=== PATIENT | female | born 1995 | race Caucasian/White ===

== ENCOUNTER 2024-05-03 12:04 | Outpatient (RCR) | payer OTHER, SELFPAY | END 2024-05-29 13:16 | disposition home or self-care (01) | LOC: PT 12:04 | PROVIDERS: PCP Nurse Practitioner Family; Visit Provider Nurse Practitioner Family | DX: M43.16 Spondylolisthesis, lumbar region (principal); M43.10 Spondylolisthesis, site unspecified | CPT/HCPCS: 97014; 97110; 97140; 97161 ==

== ENCOUNTER 2024-06-05 19:48 | Observation (INO) | payer OTHER, SELFPAY ==
[2024-06-05] VITALS (31 sets, daily range): BP systolic 118–134; BP diastolic 75–91; PULSE 76–113; TEMP 36.4; O2SAT 94–100; BMI 35.4
--- NOTE | 2024-06-05 19:50 | CT_ITS ---
The [address] [address] Patient Name: ANGELA SMITH MRN: [id number] date: 1995 Sex: F Assigned Patient Location: ED.MAIN Current Patient Location: ER Accession/Order Number: [id number] Exam Date: 06/05/2024 20:25 Report Date: 06/05/2024 20:55 At the request of: SHY LOYA Procedure: CT head/brain wo con EXAM: CT head/brain wo con HISTORY: Dizziness, weakness , head injury COMPARISON: None. TECHNIQUE: Axial CT scans through the head were obtained without IV contrast administration. Dose reduction techniques were achieved by using: automated exposure control and/or adjustment of mA and /or kV according to patient size and/or use of iterative reconstruction technique. FINDINGS: There is no acute intracranial hemorrhage or abnormal extra-axial fluid collection. No mass effect or midline shift is seen. There is no evidence of large acute territorial infarction. There is no hydrocephalus. To the limit of CT, the posterior fossa appears unremarkable. The calvaria and extra cranial soft tissues are unremarkable. The visualized orbits show no abnormality. There are partially visualized air-fluid levels within bilateral maxillary sinuses. There is a small polyp/mucous retention cyst within left sphenoid sinus. Mastoid air cells are clear. CT/CT head/brain wo con IMPRESSION: No acute intracranial process. Incidental note of air-fluid levels within partially visualized bilateral maxillary sinuses, likely represent acute sinusitis in the appropriate clinical settings. Electronically authenticated by: LUDIN HOUSE Date: 06/05/2024 20:55
--- NOTE | 2024-06-05 19:50 | ECG_ITS ---
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
--- NOTE | 2024-06-05 19:52 | ED.DIZZY1 ---
Documented by User: LEIGHANN Garcia 06/05/24 22:21 HPI - Dizziness General Chief Complaint: Dizziness Stated Complaint: other Time Seen by Provider: 06/05/24 19:50 Source: patient and EMR Mode of arrival: ambulance History of Present Illness HPI Narrative: Patient is a 29-year-old female who is brought to the emergency department by ambulance after she called 911 reporting that she was dizzy and near syncopal. She began vomiting on EMS arrival, they state they found her sitting at the bottom of the stair in her home. According to the children in the home, there was a report that the patient had been drinking alcohol and she reports that she took Mucinex prior to arrival. Her children are apparently with CPS at this time. Patient states she had flulike illness last week. She states she was feeling better but tonight felt dizzy. She believes she hit her head when she fell but does not believe she was knocked out. She denies a possibility of . She is awake and alert at initial interview, cooperative with questions. She denies abdominal pain or diarrhea. She has no concern for . Related Data Home Medications ?Medication ?Instructions ?Recorded ?Confirmed norethindrone 1 mg-ethinyl 1 tab PO DAILY 06/05/24 06/05/24 estradiol 20 mcg (21)-iron 75 mg (7) tablet (Aurovela Fe 1-20 (28)) Previous Rx's ?Medication ?Instructions ?Recorded fkjidfvbskuwpvh-rijdzypclewprju-NG 10 ml PO Q6H PRN cold symptoms 06/05/24 2 mg-30 mg-10 mg/5 mL oral syrup #200 mL (Bromfed DM) levofloxacin 750 mg tablet 750 mg PO DAILY 10 days #10 tabs 06/05/24 meclizine 25 mg chewable tablet 25 mg PO QID PRN dizziness #12 tabs 06/05/24 (Antivert) methylprednisolone 4 mg tablets in See Rx Instructions .Route 06/05/24 a dose pack (Medrol (Carlos)) .COMPLEX #21 ea ondansetron 4 mg disintegrating 4 mg PO Q6H PRN nausea and 06/05/24 tablet vomiting #12 tabs Allergies Allergy/AdvReac Type Severity Reaction Status Date / Time morphine Allergy Severe Anaphylaxis Verified 06/05/24 19:53 Penicillins Allergy Severe Anaphylaxis Verified 06/05/24 19:53 Review of Systems ROS Constitutional Denies: fever or chills Ears, nose, mouth, and throat Reports: nasal congestion; Denies: throat pain Cardiovascular Denies: chest pain Respiratory Reports: cough; Denies: shortness of breath Gastrointestinal Reports: nausea and vomiting; Denies: abdominal pain or diarrhea Musculoskeletal Denies: back pain Integumentary/Breast Denies: rash Neurological Denies: headache Hematologic/Lymphatic Denies: easy bruising or easy bleeding Exam Narrative Exam Narrative: Gen.: Awake, alert, in no distress Head: Normocephalic, atraumatic ENT: Moist mucous membranes Respiratory: No respiratory distress, lungs clear bilaterally Cardio: Regular rate and rhythm Gastrointestinal: Abdomen is soft, nondistended and nontender to palpation Extremities: Moves extremities equally, no injuries noted Psych: Normal mood and affect Neuro: No focal neuro deficit Skin: Warm, dry, intact Constitutional Vital Signs, click to edit/add: Last Vital Signs Temp 98.6 F 06/06/24 05:36 Pulse 97 H 06/06/24 06:00 Resp 18 06/06/24 06:00 BP 154/94 H 06/06/24 06:00 Pulse Ox 98 06/06/24 06:00 O2 Del Method Room Air 06/05/24 19:50 Course Vital Signs Vital signs: Vital Signs Temperature 97.6 F 06/05/24 19:50 Pulse Rate 91 H 06/05/24 19:50 Respiratory Rate 18 06/05/24 19:50 Blood Pressure 128/83 06/05/24 19:50 Pulse Oximetry 100 06/05/24 19:50 Oxygen Delivery Method Room Air 06/05/24 19:50 Temperature 98.6 F 06/06/24 05:36 Pulse Rate 97 H 06/06/24 06:00 Respiratory Rate 18 06/06/24 06:00 Blood Pressure 154/94 H 06/06/24 06:00 Pulse Oximetry 98 06/06/24 06:00 Oxygen Delivery Method Room Air 06/05/24 19:50 MDM - Dizziness MDM Narrative Medical decision making narrative: Patient was treated with IV fluids, additional Zofran. Throughout the course of her stay in the ER, she complained of worsening headache and a CT scan was performed which is unremarkable although there is evidence of acute sinusitis which may be contributing to the patient's dizziness and headache. She was given Toradol, Solu-Medrol and Valium for dizziness and headache. Reglan and Benadryl were given for headache and nausea as she had another episode of emesis in the ER. COVID and flu testing is negative. Levaquin dosed for sinusitis and contaminated UTI as the patient has an anaphylactic reaction to penicillins, we will also avoid cephalosporins. Lactic acid was redrawn. 2218: Patient is turned over to attending physician at this time for reevaluation and disposition SHARED APC VISIT, PHYSICIAN ATTESTATION: [id number] I performed a substantive part of the MDM during the patient?s E/M visit. I personally evaluated and examined the patient. I personally made or approved the documented management plan and acknowledge its risk of complications. Medical Records Attestation: I reviewed the patient's medical records. Lab Data Attestation: I reviewed the patient's lab results. Labs: Lab Results 06/05/24 06/05/24 06/05/24 Range/Units 19:50 19:51 20:30 WBC 14.0 H (4.0-11.0) 10^3/uL RBC 5.37 (4.20-5.40) 10^6/uL Hgb 14.3 (12.0-16.0) g/dL Hct 44.7 (36.0-48.0) % MCV 83.2 (81.0-99.0) fL MCH 26.6 L (26.7-34.0) pg MCHC 32.0 (29.9-35.2) g/dL RDW 15.1 H (11.0-15.0) % Plt Count 417 (150-450) 10^3/uL MPV 10.8 (9.5-13.5) fL Neut % (Auto) 59.8 (43.0-75.0) % Lymph % (Auto) 27.6 (20.5-60.0) % [place] % (Auto) 7.1 (1.7-12.0) % Eos % (Auto) 4.3 (0.9-7.0) % Baso % (Auto) 0.9 (0.2-2.0) % Neut # (Auto) 8.4 H (1.4-6.5) 10^3/uL Lymph # (Auto) 3.9 H (1.2-3.8) 10^3/uL [place] # (Auto) 1.0 H (0.3-0.8) 10^3/uL Eos # (Auto) 0.6 (0.0-0.7) 10^3/uL Baso # (Auto) 0.1 (0.0-0.1) 10^3/uL Abs Immat Gran (auto) 0.04 H (0.00-0.03) 10^3/uL Seg Neuts % (Manual) (43.0-75.0) Lymphocytes % (Manual) (20.5-60.0) % Monocytes % (Manual) (1.7-12.0) % Eosinophils % (Manual) (0.9-7.0) % Basophils % (Manual) (0.2-2.0) % Imm/Tot Granulo (auto) 0.3 (0.0-0.5) % Neutrophils # (Manual) (1.4-6.5) 10^3/uL Lymphocytes # (Manual) (1.20-3.80) 10^3/uL Monocytes # (Manual) (0.30-0.80) 10^3/uL Eosinophils # (Manual) (0.00-0.70) 10^3/uL Basophils # (Manual) (0.00-0.10) 10^3/uL D-Dimer (<=0.59) mg/L FEU Sodium 141 (136-145) mmol/L Potassium 3.3 L (3.5-5.1) mmol/L Chloride 104 (98-107) mmol/L Carbon Dioxide 22.6 (21.0-32.0) mmol/L Anion Gap 17.7 BUN 12.0 (7.0-18.0) mg/dL Creatinine 0.85 (0.55-1.02) mg/dL Est GFR ( Amer) >60 (>=60 mL/min/1.73m^2) Est GFR (Non-Af Amer) >60 (>=60 mL/min/1.73m^2) BUN/Creatinine Ratio 14.1 Glucose 113 H (74-106) mg/dL Lactate 2.6 H* (0.4-2.0) mmol/L Calcium 9.0 (8.5-10.1) mg/dL Total Bilirubin 0.2 (0.2-1.0) mg/dL AST 15 (15-37) U/L ALT 23 (14-59) U/L Alkaline Phosphatase 133 H (46-116) U/L Troponin I High Sens <4.0 L (4.0-51.3) pg/mL C-Reactive Protein (<=0.50) mg/dL Total Protein 7.6 (6.4-8.2) g/dL Albumin 3.2 L (3.4-5.0) g/dL Globulin 4.4 g/dL Albumin/Globulin Ratio 0.7 TSH 1.902 (0.358-3.740) uIU/mL Serum HCG, Qual Negative (NEGATIVE) Urine Color Lt. yellow (YELLOW) Urine Clarity Clear (CLEAR) Urine pH 6.0 (5.0-9.0) Ur Specific [place] 1.025 (1.005-1.025) Urine Protein Negative (NEG/TRACE) mg/dL Urine Glucose (UA) Negative (NEGATIVE) mg/dL Urine Ketones Negative (NEGATIVE) mg/dL Urine Occult Blood Trace-i (NEGATIVE) Urine Nitrite Negative (NEGATIVE) Urine Bilirubin Negative (NEGATIVE) Urine Urobilinogen 1.0 (0.2-1.0) EU/dL Ur Leukocyte Esterase Small A (NEGATIVE) Urine RBC 0-2 (0-2) #/HPF Urine WBC 5-10 A (NONE SEEN) #/HPF Ur Squamous Epith Cells Many A (NONE/RARE) #/LPF Urine Crystals None seen (None Seen) #/HPF Urine Bacteria Large A (NONE SEEN) #/HPF Urine Casts None seen (NONE SEEN) #/LPF Urine Mucus Large A (NONE SEEN) Ur Culture Indicated? [facility] Salicylates (<=19.9) mg/dL Urine Opiates Screen Negative (NEGATIVE) Ur Buprenorphine Scrn Negative (NEGATIVE) Ur Oxycodone Screen Negative (NEGATIVE) Urine Methadone Screen Negative (NEGATIVE) Acetaminophen (10.0-30.0) ug/mL Ur Barbiturates Screen Negative (NEGATIVE) U Tricyclic Antidepress Negative (NEGATIVE) Ur Phencyclidine Scrn Negative (NEGATIVE) Ur Amphetamines Screen Negative (NEGATIVE) U Methamphetamines Scrn Negative (NEGATIVE) U Benzodiazepines Scrn Negative (NEGATIVE) Urine Cocaine Screen Negative (NEGATIVE) U Cannabinoids Screen Negative (NEGATIVE) Ethanol Quant <3 mg/dL Influenza Type A Ag Negative Influenza Type B Ag Negative SARS-CoV-2 Ag (CV2AG) Negative (NEGATIVE) 06/05/24 06/06/24 Range/Units 23:18 04:30 WBC 14.7 H (4.0-11.0) 10^3/uL RBC 4.84 (4.20-5.40) 10^6/uL Hgb 13.1 (12.0-16.0) g/dL Hct 40.0 (36.0-48.0) % MCV 82.6 (81.0-99.0) fL MCH 27.1 (26.7-34.0) pg MCHC 32.8 (29.9-35.2) g/dL RDW 15.1 H (11.0-15.0) % Plt Count 348 (150-450) 10^3/uL MPV 10.9 (9.5-13.5) fL Neut % (Auto) (43.0-75.0) % Lymph % (Auto) (20.5-60.0) % [place] % (Auto) (1.7-12.0) % Eos % (Auto) (0.9-7.0) % Baso % (Auto) (0.2-2.0) % Neut # (Auto) (1.4-6.5) 10^3/uL Lymph # (Auto) (1.2-3.8) 10^3/uL [place] # (Auto) (0.3-0.8) 10^3/uL Eos # (Auto) (0.0-0.7) 10^3/uL Baso # (Auto) (0.0-0.1) 10^3/uL Abs Immat Gran (auto) (0.00-0.03) 10^3/uL Seg Neuts % (Manual) 97.0 H (43.0-75.0) Lymphocytes % (Manual) 2.0 L (20.5-60.0) % Monocytes % (Manual) 1.0 L (1.7-12.0) % Eosinophils % (Manual) 0.0 L (0.9-7.0) % Basophils % (Manual) 0.0 L (0.2-2.0) % Imm/Tot Granulo (auto) (0.0-0.5) % Neutrophils # (Manual) 14.25 H (1.4-6.5) 10^3/uL Lymphocytes # (Manual) 0.29 L (1.20-3.80) 10^3/uL Monocytes # (Manual) 0.14 L (0.30-0.80) 10^3/uL Eosinophils # (Manual) 0.00 (0.00-0.70) 10^3/uL Basophils # (Manual) 0.00 (0.00-0.10) 10^3/uL D-Dimer 1.20 H* (<=0.59) mg/L FEU Sodium 141 (136-145) mmol/L Potassium 3.6 (3.5-5.1) mmol/L Chloride 106 (98-107) mmol/L Carbon Dioxide 20.1 L (21.0-32.0) mmol/L Anion Gap 18.5 BUN 9.0 (7.0-18.0) mg/dL Creatinine 0.91 (0.55-1.02) mg/dL Est GFR ( Amer) >60 (>=60 mL/min/1.73m^2) Est GFR (Non-Af Amer) >60 (>=60 mL/min/1.73m^2) BUN/Creatinine Ratio 9.9 Glucose 155 H (74-106) mg/dL Lactate 0.9 1.3 (0.4-2.0) mmol/L Calcium 8.7 (8.5-10.1) mg/dL Total Bilirubin (0.2-1.0) mg/dL AST (15-37) U/L ALT (14-59) U/L Alkaline Phosphatase (46-116) U/L Troponin I High Sens (4.0-51.3) pg/mL C-Reactive Protein 1.89 H (<=0.50) mg/dL Total Protein (6.4-8.2) g/dL Albumin (3.4-5.0) g/dL Globulin g/dL Albumin/Globulin Ratio TSH (0.358-3.740) uIU/mL Serum HCG, Qual (NEGATIVE) Urine Color (YELLOW) Urine Clarity (CLEAR) Urine pH (5.0-9.0) Ur Specific [place] (1.005-1.025) Urine Protein (NEG/TRACE) mg/dL Urine Glucose (UA) (NEGATIVE) mg/dL Urine Ketones (NEGATIVE) mg/dL Urine Occult Blood (NEGATIVE) Urine Nitrite (NEGATIVE) Urine Bilirubin (NEGATIVE) Urine Urobilinogen (0.2-1.0) EU/dL Ur Leukocyte Esterase (NEGATIVE) Urine RBC (0-2) #/HPF Urine WBC (NONE SEEN) #/HPF Ur Squamous Epith Cells (NONE/RARE) #/LPF Urine Crystals (None Seen) #/HPF Urine Bacteria (NONE SEEN) #/HPF Urine Casts (NONE SEEN) #/LPF Urine Mucus (NONE SEEN) Ur Culture Indicated? Salicylates <2.8 (<=19.9) mg/dL Urine Opiates Screen (NEGATIVE) Ur Buprenorphine Scrn (NEGATIVE) Ur Oxycodone Screen (NEGATIVE) Urine Methadone Screen (NEGATIVE) Acetaminophen <2.0 L (10.0-30.0) ug/mL Ur Barbiturates Screen (NEGATIVE) U Tricyclic Antidepress (NEGATIVE) Ur Phencyclidine Scrn (NEGATIVE) Ur Amphetamines Screen (NEGATIVE) U Methamphetamines Scrn (NEGATIVE) U Benzodiazepines Scrn (NEGATIVE) Urine Cocaine Screen (NEGATIVE) U Cannabinoids Screen (NEGATIVE) Ethanol Quant mg/dL Influenza Type A Ag Influenza Type B Ag SARS-CoV-2 Ag (CV2AG) (NEGATIVE) Imaging Data CT scan - head: Attestation: I have reviewed the pertinent imaging results. Radiologist's impression: ITS Impressions Head CT 06/05/24 19:50 IMPRESSION: No acute intracranial process. Incidental note of air-fluid levels within partially visualized bilateral maxillary sinuses, likely represent acute sinusitis in the appropriate clinical settings. Electronically authenticated by: LUDIN HOUSE Date: 06/05/2024 20:55 Chest CTA 06/06/24 05:11 IMPRESSION: 1. No evidence of pulmonary embolism or an acute cardiopulmonary abnormality. Electronically authenticated by: Annamaria DODSON Date: 06/06/2024 05:58 ECG Data Attestation: I personally reviewed and interpreted this ECG as follows: (Normal sinus rhythm at a rate of 88, no acute ST elevation or ectopy. EKG reviewed by attending physician) Discharge Plan Discharge Chief Complaint: Dizziness Clinical Impression: Dizziness, Acute sinusitis, Nausea & vomiting, Medication reaction Patient Disposition: Admitted as Observation Time of Disposition Decision: 06:27 Condition: Fair Documented by User: Felisa Kessler MD 06/06/24 06:27 HPI - Dizziness General Chief Complaint: Dizziness Stated Complaint: other Time Seen by Provider: 06/05/24 19:50 Related Data Home Medications ?Medication ?Instructions ?Recorded ?Confirmed norethindrone 1 mg-ethinyl 1 tab PO DAILY 06/05/24 06/05/24 estradiol 20 mcg (21)-iron 75 mg (7) tablet (Aurovela Fe 1-20 (28)) Previous Rx's ?Medication ?Instructions ?Recorded xihmokiyumucplk-lqtqkvgqctatuct-PY 10 ml PO Q6H PRN cold symptoms 06/05/24 2 mg-30 mg-10 mg/5 mL oral syrup #200 mL (Bromfed DM) levofloxacin 750 mg tablet 750 mg PO DAILY 10 days #10 tabs 06/05/24 meclizine 25 mg chewable tablet 25 mg PO QID PRN dizziness #12 tabs 06/05/24 (Antivert) methylprednisolone 4 mg tablets in See Rx Instructions .Route 06/05/24 a dose pack (Medrol (Carlos)) .COMPLEX #21 ea ondansetron 4 mg disintegrating 4 mg PO Q6H PRN nausea and 06/05/24 tablet vomiting #12 tabs Allergies Allergy/AdvReac Type Severity Reaction Status Date / Time morphine Allergy Severe Anaphylaxis Verified 06/05/24 19:53 Penicillins Allergy Severe Anaphylaxis Verified 06/05/24 19:53 Exam Constitutional Vital Signs, click to edit/add: Last Vital Signs Temp 98.6 F 06/06/24 05:36 Pulse 97 H 06/06/24 06:00 Resp 18 06/06/24 06:00 BP 154/94 H 06/06/24 06:00 Pulse Ox 98 06/06/24 06:00 O2 Del Method Room Air 06/05/24 19:50 Course Vital Signs Vital signs: Vital Signs Temperature 97.6 F 06/05/24 19:50 Pulse Rate 91 H 06/05/24 19:50 Respiratory Rate 18 06/05/24 19:50 Blood Pressure 128/83 06/05/24 19:50 Pulse Oximetry 100 06/05/24 19:50 Oxygen Delivery Method Room Air 06/05/24 19:50 Temperature 98.6 F 06/06/24 05:36 Pulse Rate 97 H 06/06/24 06:00 Respiratory Rate 18 06/06/24 06:00 Blood Pressure 154/94 H 06/06/24 06:00 Pulse Oximetry 98 06/06/24 06:00 Oxygen Delivery Method Room Air 06/05/24 19:50 MDM - Dizziness MDM Narrative Medical decision making narrative: Patient was treated with IV fluids, additional Zofran. Throughout the course of her stay in the ER, she complained of worsening headache and a CT scan was performed which is unremarkable although there is evidence of acute sinusitis which may be contributing to the patient's dizziness and headache. She was given Toradol, Solu-Medrol and Valium for dizziness and headache. Reglan and Benadryl were given for headache and nausea as she had another episode of emesis in the ER. COVID and flu testing is negative. Levaquin dosed for sinusitis and contaminated UTI as the patient has an anaphylactic reaction to penicillins, we will also avoid cephalosporins. Lactic acid was redrawn. 2218: Patient is turned over to attending physician at this time for reevaluation and disposition This patient was seen and evaluated in conjunction with the physician assistant front office manager. She presents for evaluation of nausea vomiting, dizziness and headache. She states she has recently had upper respiratory tract symptoms and has been taking Mucinex. Earlier in the evening she took a 12-hour Mucinex, maybe mucinex DM. She thinks that was too strong for her because after that she started feeling dizzy with nausea vomiting and vomited pieces of the tablet that she took. She has not had a fever. She does not have any neck pain or stiffness. Her nausea vomiting and headache were refractory to all the medications that had been given to her and she requested something else for nausea. She states that she feels that anytime she moves she is going to throw up. She was given IM Phenergan and on reevaluation did not feel much better. At that time she had horizontal nystagmus and was moderately uncomfortable. Her neuroexam was otherwise normal. She was medicated with Ativan. Repeat lactic acid is normal. Urine tox is negative. Alcohol is negative. Patient slept and when she awakened had to use the bathroom. She is feeling somewhat better but still feels dizzy. Her nystagmus has improved. I repeated her neuroexam which is normal however she does have some degree of ataxia when walking. She required my hand to walk to the bathroom and back. After coming back from the bathroom while still on the monitor her pulse went up to 150. I discussed what has been going on with her. She states that she is a former smoker meaning that she quit smoking last week when she started developing upper respiratory tract symptoms. She states that she has a headache on the top of her head but no neck pain. She does not have any nuchal rigidity. I tested this several times both while she was standing and lying down. She states that she was told by a doctor at [facility] that she damaged her lungs by taking a bleach bath recently for her hidradenitis. She is not having any chest pain or shortness of breath. She has some degree of blurred vision. Her speech is not slurred. Medical Authorization Specialist strength is intact, she has a negative pronator drift, upper and lower extremity strength and sensation is intact. I am repeating some labs and adding on a D-dimer. We will continue normal saline at this time. I suggested that we do a spinal tap but she flatly refuses this procedure. She signed a refusal for this procedure verbalizing the understanding that I was concerned for the possibility of meningitis. Repeat labs are reviewed. She does have an elevated D-dimer and a CT angio of the chest was ordered. Aspirin and Tylenol levels are normal. CRP is elevated at 1.89. Her white count went up to 14.7 from 14. Hemoglobin went down slightly but the patient has had several liters of normal saline. Her CO2 decreased to 20.1. She clinically looks better but still states that she is too dizzy to move. CTA of the chest is negative. Case was discussed with Dr Jeong and she is accepted for admission to med/surg, observation status SHARED APC VISIT, PHYSICIAN ATTESTATION: [id number] I performed a substantive part of the MDM during the patient?s E/M visit. I personally evaluated and examined the patient. I personally made or approved the documented management plan and acknowledge its risk of complications. Lab Data Labs: Lab Results 06/05/24 06/05/24 06/05/24 Range/Units 19:50 19:51 20:30 WBC 14.0 H (4.0-11.0) 10^3/uL RBC 5.37 (4.20-5.40) 10^6/uL Hgb 14.3 (12.0-16.0) g/dL Hct 44.7 (36.0-48.0) % MCV 83.2 (81.0-99.0) fL MCH 26.6 L (26.7-34.0) pg MCHC 32.0 (29.9-35.2) g/dL RDW 15.1 H (11.0-15.0) % Plt Count 417 (150-450) 10^3/uL MPV 10.8 (9.5-13.5) fL Neut % (Auto) 59.8 (43.0-75.0) % Lymph % (Auto) 27.6 (20.5-60.0) % [place] % (Auto) 7.1 (1.7-12.0) % Eos % (Auto) 4.3 (0.9-7.0) % Baso % (Auto) 0.9 (0.2-2.0) % Neut # (Auto) 8.4 H (1.4-6.5) 10^3/uL Lymph # (Auto) 3.9 H (1.2-3.8) 10^3/uL [place] # (Auto) 1.0 H (0.3-0.8) 10^3/uL Eos # (Auto) 0.6 (0.0-0.7) 10^3/uL Baso # (Auto) 0.1 (0.0-0.1) 10^3/uL Abs Immat Gran (auto) 0.04 H (0.00-0.03) 10^3/uL Seg Neuts % (Manual) (43.0-75.0) Lymphocytes % (Manual) (20.5-60.0) % Monocytes % (Manual) (1.7-12.0) % Eosinophils % (Manual) (0.9-7.0) % Basophils % (Manual) (0.2-2.0) % Imm/Tot Granulo (auto) 0.3 (0.0-0.5) % Neutrophils # (Manual) (1.4-6.5) 10^3/uL Lymphocytes # (Manual) (1.20-3.80) 10^3/uL Monocytes # (Manual) (0.30-0.80) 10^3/uL Eosinophils # (Manual) (0.00-0.70) 10^3/uL Basophils # (Manual) (0.00-0.10) 10^3/uL D-Dimer (<=0.59) mg/L FEU Sodium 141 (136-145) mmol/L Potassium 3.3 L (3.5-5.1) mmol/L Chloride 104 (98-107) mmol/L Carbon Dioxide 22.6 (21.0-32.0) mmol/L Anion Gap 17.7 BUN 12.0 (7.0-18.0) mg/dL Creatinine 0.85 (0.55-1.02) mg/dL Est GFR ( Amer) >60 (>=60 mL/min/1.73m^2) Est GFR (Non-Af Amer) >60 (>=60 mL/min/1.73m^2) BUN/Creatinine Ratio 14.1 Glucose 113 H (74-106) mg/dL Lactate 2.6 H* (0.4-2.0) mmol/L Calcium 9.0 (8.5-10.1) mg/dL Total Bilirubin 0.2 (0.2-1.0) mg/dL AST 15 (15-37) U/L ALT 23 (14-59) U/L Alkaline Phosphatase 133 H (46-116) U/L Troponin I High Sens <4.0 L (4.0-51.3) pg/mL C-Reactive Protein (<=0.50) mg/dL Total Protein 7.6 (6.4-8.2) g/dL Albumin 3.2 L (3.4-5.0) g/dL Globulin 4.4 g/dL Albumin/Globulin Ratio 0.7 TSH 1.902 (0.358-3.740) uIU/mL Serum HCG, Qual Negative (NEGATIVE) Urine Color Lt. yellow (YELLOW) Urine Clarity Clear (CLEAR) Urine pH 6.0 (5.0-9.0) Ur Specific [place] 1.025 (1.005-1.025) Urine Protein Negative (NEG/TRACE) mg/dL Urine Glucose (UA) Negative (NEGATIVE) mg/dL Urine Ketones Negative (NEGATIVE) mg/dL Urine Occult Blood Trace-i (NEGATIVE) Urine Nitrite Negative (NEGATIVE) Urine Bilirubin Negative (NEGATIVE) Urine Urobilinogen 1.0 (0.2-1.0) EU/dL Ur Leukocyte Esterase Small A (NEGATIVE) Urine RBC 0-2 (0-2) #/HPF Urine WBC 5-10 A (NONE SEEN) #/HPF Ur Squamous Epith Cells Many A (NONE/RARE) #/LPF Urine Crystals None seen (None Seen) #/HPF Urine Bacteria Large A (NONE SEEN) #/HPF Urine Casts None seen (NONE SEEN) #/LPF Urine Mucus Large A (NONE SEEN) Ur Culture Indicated? [facility] Salicylates (<=19.9) mg/dL Urine Opiates Screen Negative (NEGATIVE) Ur Buprenorphine Scrn Negative (NEGATIVE) Ur Oxycodone Screen Negative (NEGATIVE) Urine Methadone Screen Negative (NEGATIVE) Acetaminophen (10.0-30.0) ug/mL Ur Barbiturates Screen Negative (NEGATIVE) U Tricyclic Antidepress Negative (NEGATIVE) Ur Phencyclidine Scrn Negative (NEGATIVE) Ur Amphetamines Screen Negative (NEGATIVE) U Methamphetamines Scrn Negative (NEGATIVE) U Benzodiazepines Scrn Negative (NEGATIVE) Urine Cocaine Screen Negative (NEGATIVE) U Cannabinoids Screen Negative (NEGATIVE) Ethanol Quant <3 mg/dL Influenza Type A Ag Negative Influenza Type B Ag Negative SARS-CoV-2 Ag (CV2AG) Negative (NEGATIVE) 06/05/24 06/06/24 Range/Units 23:18 04:30 WBC 14.7 H (4.0-11.0) 10^3/uL RBC 4.84 (4.20-5.40) 10^6/uL Hgb 13.1 (12.0-16.0) g/dL Hct 40.0 (36.0-48.0) % MCV 82.6 (81.0-99.0) fL MCH 27.1 (26.7-34.0) pg MCHC 32.8 (29.9-35.2) g/dL RDW 15.1 H (11.0-15.0) % Plt Count 348 (150-450) 10^3/uL MPV 10.9 (9.5-13.5) fL Neut % (Auto) (43.0-75.0) % Lymph % (Auto) (20.5-60.0) % [place] % (Auto) (1.7-12.0) % Eos % (Auto) (0.9-7.0) % Baso % (Auto) (0.2-2.0) % Neut # (Auto) (1.4-6.5) 10^3/uL Lymph # (Auto) (1.2-3.8) 10^3/uL [place] # (Auto) (0.3-0.8) 10^3/uL Eos # (Auto) (0.0-0.7) 10^3/uL Baso # (Auto) (0.0-0.1) 10^3/uL Abs Immat Gran (auto) (0.00-0.03) 10^3/uL Seg Neuts % (Manual) 97.0 H (43.0-75.0) Lymphocytes % (Manual) 2.0 L (20.5-60.0) % Monocytes % (Manual) 1.0 L (1.7-12.0) % Eosinophils % (Manual) 0.0 L (0.9-7.0) % Basophils % (Manual) 0.0 L (0.2-2.0) % Imm/Tot Granulo (auto) (0.0-0.5) % Neutrophils # (Manual) 14.25 H (1.4-6.5) 10^3/uL Lymphocytes # (Manual) 0.29 L (1.20-3.80) 10^3/uL Monocytes # (Manual) 0.14 L (0.30-0.80) 10^3/uL Eosinophils # (Manual) 0.00 (0.00-0.70) 10^3/uL Basophils # (Manual) 0.00 (0.00-0.10) 10^3/uL D-Dimer 1.20 H* (<=0.59) mg/L FEU Sodium 141 (136-145) mmol/L Potassium 3.6 (3.5-5.1) mmol/L Chloride 106 (98-107) mmol/L Carbon Dioxide 20.1 L (21.0-32.0) mmol/L Anion Gap 18.5 BUN 9.0 (7.0-18.0) mg/dL Creatinine 0.91 (0.55-1.02) mg/dL Est GFR ( Amer) >60 (>=60 mL/min/1.73m^2) Est GFR (Non-Af Amer) >60 (>=60 mL/min/1.73m^2) BUN/Creatinine Ratio 9.9 Glucose 155 H (74-106) mg/dL Lactate 0.9 1.3 (0.4-2.0) mmol/L Calcium 8.7 (8.5-10.1) mg/dL Total Bilirubin (0.2-1.0) mg/dL AST (15-37) U/L ALT (14-59) U/L Alkaline Phosphatase (46-116) U/L Troponin I High Sens (4.0-51.3) pg/mL C-Reactive Protein 1.89 H (<=0.50) mg/dL Total Protein (6.4-8.2) g/dL Albumin (3.4-5.0) g/dL Globulin g/dL Albumin/Globulin Ratio TSH (0.358-3.740) uIU/mL Serum HCG, Qual (NEGATIVE) Urine Color (YELLOW) Urine Clarity (CLEAR) Urine pH (5.0-9.0) Ur Specific [place] (1.005-1.025) Urine Protein (NEG/TRACE) mg/dL Urine Glucose (UA) (NEGATIVE) mg/dL Urine Ketones (NEGATIVE) mg/dL Urine Occult Blood (NEGATIVE) Urine Nitrite (NEGATIVE) Urine Bilirubin (NEGATIVE) Urine Urobilinogen (0.2-1.0) EU/dL Ur Leukocyte Esterase (NEGATIVE) Urine RBC (0-2) #/HPF Urine WBC (NONE SEEN) #/HPF Ur Squamous Epith Cells (NONE/RARE) #/LPF Urine Crystals (None Seen) #/HPF Urine Bacteria (NONE SEEN) #/HPF Urine Casts (NONE SEEN) #/LPF Urine Mucus (NONE SEEN) Ur Culture Indicated? Salicylates <2.8 (<=19.9) mg/dL Urine Opiates Screen (NEGATIVE) Ur Buprenorphine Scrn (NEGATIVE) Ur Oxycodone Screen (NEGATIVE) Urine Methadone Screen (NEGATIVE) Acetaminophen <2.0 L (10.0-30.0) ug/mL Ur Barbiturates Screen (NEGATIVE) U Tricyclic Antidepress (NEGATIVE) Ur Phencyclidine Scrn (NEGATIVE) Ur Amphetamines Screen (NEGATIVE) U Methamphetamines Scrn (NEGATIVE) U Benzodiazepines Scrn (NEGATIVE) Urine Cocaine Screen (NEGATIVE) U Cannabinoids Screen (NEGATIVE) Ethanol Quant mg/dL Influenza Type A Ag Influenza Type B Ag SARS-CoV-2 Ag (CV2AG) (NEGATIVE) Imaging Data CT scan - head: Radiologist's impression: ITS Impressions Head CT 06/05/24 19:50 IMPRESSION: No acute intracranial process. Incidental note of air-fluid levels within partially visualized bilateral maxillary sinuses, likely represent acute sinusitis in the appropriate clinical settings. Electronically authenticated by: LUDIN HOUSE Date: 06/05/2024 20:55 Chest CTA 06/06/24 05:11 IMPRESSION: 1. No evidence of pulmonary embolism or an acute cardiopulmonary abnormality. Electronically authenticated by: Annamaria DODSON Date: 06/06/2024 05:58 Discharge Plan Discharge Chief Complaint: Dizziness Clinical Impression: Dizziness, Acute sinusitis, Nausea & vomiting, Medication reaction Patient Disposition: Admitted as Observation Time of Disposition Decision: 06:27 Condition: Fair
--- NOTE | 2024-06-05 20:04 | PC.NURSE ---
i walked into this patient's room to find this patient sitting upright on the bed talking on a phone. i introduced myself to this patient, but this patient continues too talk on the phone
[2024-06-05 20:07] LABS: Basophils Absolute Auto 0.1 10^3/uL (0.0-0.1); Basophils Percent Auto 0.9 % (0.2-2.0); Eosinophils Absolute Auto 0.6 10^3/uL (0.0-0.7); Eosinophils Percent Auto 4.3 % (0.9-7.0); Hematocrit 44.7 % (36.0-48.0); Hemoglobin 14.3 g/dL (12.0-16.0); Immature Granulocytes Abs Auto 0.04 10^3/uL (0.00-0.03); Immature Granulocytes Pct Auto 0.3 % (0.0-0.5); Lymphocytes Absolute Auto 3.9 10^3/uL (1.2-3.8); Lymphocytes Percent Auto 27.6 % (20.5-60.0); Mean Corpuscular Hemoglobin 26.6 pg (26.7-34.0); Mean Corpuscular Volume 83.2 fL (81.0-99.0); Mean Platelet Volume 10.8 fL (9.5-13.5); Monocytes Percent Auto 7.1 % (1.7-12.0); Neutrophils Absolute Auto 8.4 10^3/uL (1.4-6.5); Neutrophils Percent Auto 59.8 % (43.0-75.0); Platelet Count 417 10^3/uL (150-450); Red Blood Count 5.37 10^6/uL (4.20-5.40); Red Cell Distribution Width 15.1 % (11.0-15.0)
--- NOTE | 2024-06-05 20:15 | PC.NURSE ---
this patient voices of dizziness during a cough spell, then this patient walked outside to sit down on the steps, patient called 911 at that time. this patient complains of a headache all over
[2024-06-05 20:19] LABS: HCG Qualitative NEGATIVE (NEGATIVE); Internal Control Within Normal Limits
[2024-06-05 20:22] LABS: Influenza Virus A Antigen Negative; Influenza Virus B Antigen Negative; Internal Control Within Normal Limits; SARS-CoV-2 Ag NEGATIVE (NEGATIVE)
[2024-06-05 20:24] LABS: Ethanol <3 mg/dL
[2024-06-05 20:28] LABS: Alanine Aminotransferase 23 U/L (14-59); Albumin Globulin Ratio 0.7; Albumin Level 3.2 g/dL (3.4-5.0); Alkaline Phosphatase 133 U/L (46-116); Anion Gap 17.7; Aspartate Amino Transferase 15 U/L (15-37); BUN Creatinine Ratio 14.1; Bilirubin Total 0.2 mg/dL (0.2-1.0); Carbon Dioxide 22.6 mmol/L (21.0-32.0); Chloride 104 mmol/L (98-107); Estimated GFR (African America >60 (>=60 mL/min/1.73m^2); Estimated GFR (Non-African Ame >60 (>=60 mL/min/1.73m^2); Globulin 4.4 g/dL; Glucose 113 mg/dL (74-106); Potassium 3.3 mmol/L (3.5-5.1); Sodium 141 mmol/L (136-145); Total Protein 7.6 g/dL (6.4-8.2)
[2024-06-05 20:37] LABS: Thyroid Stimulating Hormone 1.902 uIU/mL (0.358-3.740); Troponin I High Sensitivity <4.0 pg/mL (4.0-51.3)
[2024-06-05] MEDS: ONDANSETRON PF 4 MG/2 ML VIAL IV (20:38)
[2024-06-05] MEDS: 0.9 % SODIUM CHLORIDE 1,000 ML 999 ML IV (20:38)
[2024-06-05 20:40] LABS: Lactate/Lactic Acid 2.6 mmol/L (0.4-2.0)
[2024-06-05] MEDS: KETOROLAC TROMETHAMINE 30 MG/ML VIAL IVP (21:09)
[2024-06-05 21:30] LABS: Bilirubin Urine NEGATIVE (NEGATIVE); Blood Urine TRACE-I (NEGATIVE); Clarity Urine CLEAR (CLEAR); Color Urine LT. YELLOW (YELLOW); Glucose Urine UA NEGATIVE (NEGATIVE); Ketones Urine NEGATIVE (NEGATIVE); Leukocyte Esterase Urine SMALL (NEGATIVE); Nitrite Urine NEGATIVE (NEGATIVE); Protein Urine NEGATIVE (NEG/TRACE); Specific Gravity Urine 1.025 (1.005-1.025)
[2024-06-05 21:45] LABS: Amphetamine Screen Urine NEGATIVE (NEGATIVE); Barbiturates Screen Urine NEGATIVE (NEGATIVE); Benzodiazepines Screen Urine NEGATIVE (NEGATIVE); Buprenorphine Screen Urine NEGATIVE (NEGATIVE); Cannabinoid Screen Urine NEGATIVE (NEGATIVE); Cocaine Screen Urine NEGATIVE (NEGATIVE); Methadone Screen Urine NEGATIVE (NEGATIVE); Methamphetamines Screen Urine NEGATIVE (NEGATIVE); Opiate Screen Urine NEGATIVE (NEGATIVE); Oxycodone Screen Urine NEGATIVE (NEGATIVE); Phencyclidine Screen Urine NEGATIVE (NEGATIVE); Tricyclic Antidepressant Urine NEGATIVE (NEGATIVE)
[2024-06-05 21:50] LABS: Bacteria Urine LARGE #/HPF (NONE SEEN); Mucus Urine LARGE (NONE SEEN); RBC Urine 0-2 #/HPF (0-2); Squamous Epithelial Cell Urine MANY #/LPF (NONE/RARE)
[2024-06-05 21:52] LABS: Cast Seen? NONE SEEN #/LPF (NONE SEEN); Crystals Seen? None Seen #/HPF (None Seen)
[2024-06-05 21:53] LABS: Urine Culture Indicated LABCORP
[2024-06-05] MEDS: DIPHENHYDRAMINE HCL 50 MG/ML VIAL 25 MG IV (22:24)
[2024-06-05] MEDS: METHYLPREDNISOLONE SOD SUCC PF 125 MG/2 ML VIAL IVP (22:24)
[2024-06-05] MEDS: METOCLOPRAMIDE HCL 10 MG/2 ML VIAL IVP (22:25)
[2024-06-05] MEDS: DIAZEPAM 10 MG/2 ML SYRINGE 2.5 MG IV (22:25)
[2024-06-05] MEDS: LEVOFLOXACIN 750 MG TABLET PO (22:25)
[2024-06-05 23:53] LABS: Lactate/Lactic Acid 0.9 mmol/L (0.4-2.0)
[2024-06-06] VITALS (47 sets, daily range): BP systolic 113–154; BP diastolic 77–96; PULSE 69–127; TEMP 36.7–37.3; O2SAT 93–100; BMI 36.0
[2024-06-06] MEDS: PROMETHAZINE HCL 25 MG/ML VIAL 12.5 MG IM (00:13)
[2024-06-06] MEDS: LORAZEPAM 2 MG/ML VIAL 1 MG IV (00:46)
--- NOTE | 2024-06-06 01:31 | PC.NURSE ---
this patient sleeping but awake when i call her name, this patient voices I am feeling better now this patient voices no concerns and shows no signs of distress
--- NOTE | 2024-06-06 02:15 | PC.NURSE ---
i gave the portable phone because your called he wants you to call him
[2024-06-06] MEDS: 0.9 % SODIUM CHLORIDE 1,000 ML 1000 ML IV (02:49)
--- NOTE | 2024-06-06 03:40 | PC.NURSE ---
patient continues to sleep, but awake when i call her name, this patient voices no concerns and shows no signs of distress
[2024-06-06 04:39] LABS: Hemoglobin 13.1 g/dL (12.0-16.0); Mean Corpuscular HGB Conc 32.8 g/dL (29.9-35.2); Mean Corpuscular Hemoglobin 27.1 pg (26.7-34.0); Mean Corpuscular Volume 82.6 fL (81.0-99.0); Mean Platelet Volume 10.9 fL (9.5-13.5); Platelet Count 348 10^3/uL (150-450); Red Blood Count 4.84 10^6/uL (4.20-5.40); Red Cell Distribution Width 15.1 % (11.0-15.0); White Blood Count 14.7 10^3/uL (4.0-11.0)
[2024-06-06] MEDS: 0.9 % SODIUM CHLORIDE 1,000 ML 125 ML IV (04:50)
[2024-06-06 05:01] LABS: Anion Gap 18.5; BUN Creatinine Ratio 9.9; C Reactive Protein 1.89 mg/dL (<=0.50); Calcium 8.7 mg/dL (8.5-10.1); Carbon Dioxide 20.1 mmol/L (21.0-32.0); Chloride 106 mmol/L (98-107); Estimated GFR (African America >60 (>=60 mL/min/1.73m^2); Estimated GFR (Non-African Ame >60 (>=60 mL/min/1.73m^2); Glucose 155 mg/dL (74-106); Potassium 3.6 mmol/L (3.5-5.1); Salicylate <2.8 mg/dL (<=19.9); Sodium 141 mmol/L (136-145)
[2024-06-06 05:05] LABS: Lactate/Lactic Acid 1.3 mmol/L (0.4-2.0)
[2024-06-06 05:06] LABS: Acetaminophen <2.0 ug/mL (10.0-30.0)
--- NOTE | 2024-06-06 05:11 | CT_ITS ---
The [address] [address] Patient Name: ANGELA SMITH MRN: [id number] date: 1995 Sex: F Assigned Patient Location: ER Current Patient Location: ER Accession/Order Number: [id number] Exam Date: 06/06/2024 05:27 Report Date: 06/06/2024 05:58 At the request of: EDUIN MARKER Procedure: CT angio chest EXAM: CT angio chest HISTORY: tachycardia, elevated ddimer COMPARISON: None. TECHNIQUE: Axial CT images through the chest were obtained after the intravenous administration of contrast. Coronal and sagittal reformats were obtained. Dose reduction techniques were achieved by using automated exposure control and/or adjustment of mA and/or kV according to patient size and/or use of iterative reconstruction technique. FINDINGS: The study is technically adequate with a good contrast bolus to the pulmonary arteries. There are no filling defects or vascular cutoffs to indicate a pulmonary embolus. The pulmonary arteries are normal in size. There is mild bibasilar atelectasis. The central airways are patent. No pleural effusion or pneumothorax is seen. The thoracic aorta is normal in course and caliber without evidence of an aneurysm. The cardiac chambers appear normal in size. There is no pericardial effusion. There is no mediastinal, hilar, or axillary lymphadenopathy by CT size criteria. Images through the upper abdomen reveal no significant abnormalities. No suspicious or aggressive bone lesions are seen. No acute fracture is seen. CT/CT angio chest IMPRESSION: 1. No evidence of pulmonary embolism or an acute cardiopulmonary abnormality. Electronically authenticated by: Annamaria DODSON Date: 06/06/2024 05:58
[2024-06-06 05:17] LABS: Lymphocytes Absolute Manual 0.29 10^3/uL (1.20-3.80); Monocytes Absolute Manual 0.14 10^3/uL (0.30-0.80); Segmented Neut Absolute Manual 14.25 10^3/uL (1.4-6.5)
--- NOTE | 2024-06-06 06:31 | PC.NURSE ---
this patient updated of here room number will 202, and going upstairs in 5 minutes. i dialed her phone number and she is talking to him now
--- NOTE | 2024-06-06 06:48 | P.HP_ITS ---
HPI H&P: HPI History of Present Illness Chief complaint: MEDICATION REACTION Narrative: Patient presented to the emergency room with headache and severe vertigo, unable to ambulate, she had significant tachycardia in the emergency room, extensive workup done she had a positive D-dimer so they did a CTA of her chest and that was clear, CT scan of her head secondary to the headache and the vertigo, that was clear, she was given multiple medications which helped the headache to some degree but not the vertigo, every time she stood up and tried to ambulate her heart rate would go up into the 130s, this is over about a 10-hour period, feeling treatment in ER patient unable to be discharged to home will admit patient to the hospital under observational status for further workup and treatment I saw patient up on the medical surgical floor, resting comfortably in bed does seem very uncomfortable, keeps her eyes closed throughout the evaluation as to prevent the dizziness Opioid HPI Opioid Management Most Recent Pain and Opioid Data: Last Pain Scale 5 06/06/24 08:39 06/06/24 Last Pain Assessment 06/06/24 08:39 Last ED Pain Assessment 06/05/24 22:46 Last MAR Pain Assessment 06/06/24 08:48 Last ORT Total Score 1 06/06/24 06:46 06/06/24 Last ORT Risk Category Low Risk 06/06/24 06:46 06/06/24 Ur Phencyclidine Scrn Negative (NEGATIVE) 06/05/24 20:30 05/25 06/18 Review of Systems ROS Status of ROS 10 or more systems reviewed and unremark able except as noted in history and below PFSH PFSH Family History (Updated 06/06/24 @ 06:54 by Kaia Gold RN) Grandfather Family history of stroke Social History (Updated 06/06/24 @ 06:55 by Kaia Gold RN) Within the past year, how often did you have a drink containing alcohol: 2-4 times a month Within the past year, how many standard drinks containing alcohol did you have on a typical day: 3 or 4 Within the past year, how often did you have six or more drinks on one occasion: never Total score: 2 Score interpretation: A score of 3 or more indicates drinking is likely to affect patient's safety. Smoking status: Never smoker Non-prescribed substance use: denies use Highest level of school completed/degree received: high school graduate Are you now , , , , never or living with a partner: living with partner Little interest or pleasure in doing things: not at all Feeling down, depressed, or hopeless: not at all Feel stressed/tense/nervous/anxious/difficulty sleeping: not at all Do you think of yourself as: straight/heterosexual Gender Identity: female Meds Home Medications and Allergies Home Medications ?Medication ?Instructions ?Recorded ?Confirmed ?Type mcyalhrntzpwbwj-ytehvlvyfwvbxmw-RJ 10 ml PO Q6H PRN cold symptoms 06/05/24 Rx 2 mg-30 mg-10 mg/5 mL oral syrup #200 mL (Bromfed DM) levofloxacin 750 mg tablet 750 mg PO DAILY 10 days #10 tabs 06/05/24 Rx meclizine 25 mg chewable tablet 25 mg PO QID PRN dizziness #12 tabs 06/05/24 Rx (Antivert) methylprednisolone 4 mg tablets in See Rx Instructions .Route 06/05/24 Rx a dose pack (Medrol (Carlos)) .COMPLEX #21 ea norethindrone 1 mg-ethinyl 1 tab PO DAILY 06/05/24 06/05/24 History estradiol 20 mcg (21)-iron 75 mg (7) tablet (Aurovela Fe 1-20 (28)) ondansetron 4 mg disintegrating 4 mg PO Q6H PRN nausea and 06/05/24 Rx tablet vomiting #12 tabs Allergies Allergy/AdvReac Type Severity Reaction Status Date / Time morphine Allergy Severe Anaphylaxis Verified 06/05/24 19:53 Penicillins Allergy Severe Anaphylaxis Verified 06/05/24 19:53 Exam Constitutional Vital Signs, click to edit/add: Last Vital Signs Temp 98.6 F 06/06/24 05:36 Pulse 97 H 06/06/24 06:00 Resp 18 06/06/24 06:00 BP 154/94 H 06/06/24 06:00 Pulse Ox 98 06/06/24 06:00 O2 Del Method Room Air 06/05/24 19:50 Documenting provider has reviewed patient's vital signs: yes Common normals: apparent distress (Moderate distress secondary to vertigo) Chest Common normals: inspection of chest normal Respiratory Common normals: normal respiratory effort and no retractions Cardio Common normals: regular rhythm Rate: tachycardic GI Common normals: Normal to inspection, nondistended, normoactive bowel sounds present Neuro Common normals: oriented x3 (Positive nystagmus on bilateral conjugate gaze) and CN's II-XII intact bilaterally Results Labs Labs: Short CBC 06/05/24 06/06/24 Range/Units 19:50 04:30 WBC 14.0 H 14.7 H (4.0-11.0) 10^3/uL Hgb 14.3 13.1 (12.0-16.0) g/dL Hct 44.7 40.0 (36.0-48.0) % Plt Count 417 348 (150-450) 10^3/uL BMP 06/05/24 06/06/24 19:50 04:30 Sodium 141 141 Potassium 3.3 L 3.6 Chloride 104 106 Carbon Dioxide 22.6 20.1 L BUN 12.0 9.0 Creatinine 0.85 0.91 Glucose 113 H 155 H Calcium 9.0 8.7 Liver Function 06/05/24 Range/Units 19:50 Total Bilirubin 0.2 (0.2-1.0) mg/dL AST 15 (15-37) U/L ALT 23 (14-59) U/L Alkaline Phosphatase 133 H (46-116) U/L Albumin 3.2 L (3.4-5.0) g/dL Urine 06/05/24 Range/Units 20:30 Urine Color Lt. yellow (YELLOW) Urine Clarity Clear (CLEAR) Urine pH 6.0 (5.0-9.0) Ur Specific [place] 1.025 (1.005-1.025) Urine Protein Negative (NEG/TRACE) mg/dL Urine Glucose (UA) Negative (NEGATIVE) mg/dL Assessment and Plan Assessment and Plan (1) Medication reaction: (2) Nausea & vomiting: (3) Acute sinusitis: (4) Dizziness: Plan Admission findings: Tachycardia, respiratory distress, mildly elevated high blood pressure, leukocytosis, mild hyperglycemia, elevated CRP secondary to chronic sinusitis resulting in acute vertigo with unrelenting despite treatment with Valium, meclizine, steroids. Acute vertigo-refractory to medications currently, repeat steroids, physical therapy try maneuvers to improve, if that maneuver improves and vertigo is improving later today she can be discharged to home in improving condition. Medications to this. Follow-up with PCP. Acute sinusitis and leukocytosis with left shift consistent with bacterial process-start patient on IV antibiotics, needs IV secondary to the nausea vomiting with due to the vertigo Acute UTI-urinalysis is abnormal with leuk Leukourea-on antibiotics for the sinusitis, follow-up on culture Admission status: Patient with severe vertigo, still undergoing the acute treatment phase, medically necessary treatment may only span 1 midnights will start patient off as observational status
--- NOTE | 2024-06-06 06:53 | PC.NURSE ---
this patient awake and alert, patient went upstairs via WC, this patient's iv fluids will be continue her 125ml/hr, iv fluids flowing without any problems. this patient voices concerns and shows no signs of distress
[2024-06-06] MEDS: ONDANSETRON PF 4 MG/2 ML VIAL IV (08:40)
[2024-06-06] MEDS: METHYLPREDNISOLONE SOD SUCC PF 125 MG/2 ML VIAL IVP ×2 (08:40→14:41)
[2024-06-06] MEDS: MECLIZINE HCL 12.5 MG TABLET 25 MG PO ×2 (08:40→14:41)
[2024-06-06] MEDS: LEVOFLOXACIN IN DEXTROSE 5 % 750 MG/150 ML PREMIX 100 MG IV (08:40)
[2024-06-06] MEDS: KETOROLAC TROMETHAMINE 30 MG/ML VIAL IVP ×2 (08:48→14:41)
--- NOTE | 2024-06-06 09:24 | CM.NOTE ---
Rounds made with Dr. Jenog, discussed plan of care with pt. Dr. Jeong will have PT see pt for dizziness. Pt will possibly discharge to home this afternoon.
--- NOTE | 2024-06-06 11:55 | SWNOTE1 ---
SW met with pt to discuss alcohol intake and possible CPS involvement. SW asked pt if she drinks daily. Pt voiced she does not and this was just a random time that she was. SW offered resources/assistance if pt would like in regards to alcohol. Pt voiced she does not want any resources. SW asked if she has children in the home. Pt voiced yes she does. SW asked who was home with the children at this time? Pt voiced father of baby. SW asked pt how old her children are? Pt voiced initially she was not sure and she can't do the math. SW again asked how old they were? She voiced she would have to think about it. SW then asked are they older/younger, 10? 2? Pt then stated 8,6 and 8 month old. SW asked if Children Services was involved at this time? She stated no. SW asked if they have ever been involved prior to her coming to hospital? Pt stated no. SW asked if her kids are safe at this time, she stated yes they are with father. SW expressed to pt that SW may be back with further questions. SW was able to speak with nurse. Nurse was informed that the children were the ones who called 911 after pt fell. Police came to home as well and the police or patrol park officer was who called CPS and they came to the home until father came home. SW went back in and spoke to pt. SW did ask her again if CPS came to the home last night. She stated not that she was aware of. She stated the kids are at home safely with father at this time. At this time police have already contacted CPS last night.
--- NOTE | 2024-06-07 11:21 | CM.DCFOLLOWU ---
Person spoke with: patient How are you feeling? headache and dizzy How is your pain? headache Did you understand your discharge instructions?yes Do you have any questions about your discharge instructions?no Were you given any prescriptions at discharge?yes Were you able to get your prescriptions filled?yes Do you understand how to take your medications as ordered?yes Do you have any questions about your follow up appointment and do you plan to keep your follow up appointment? no questions, reviewed follow up Is there anything else that you would like to discuss? no Questions/Comments/Concerns/Other: Voiced that she is still dizzy and has a headache. Advised to return to ED if this persists.
== END 2024-06-06 17:40 | disposition home or self-care (01) ==
LOC: ER 06-06 06:27 → MS 06-06 06:35
PROVIDERS: Physician Assistant; Admitting Provider Family Medicine; Emergency Provider Emergency Medicine; PCP Nurse Practitioner Family; Visit Provider Family Medicine
DX: R42 Dizziness and giddiness (principal); R51.9 Headache, unspecified; R11.2 Nausea with vomiting, unspecified; J01.90 Acute sinusitis, unspecified; T50.905A Adverse effect of unspecified drugs, medicaments and biological substances, initial encounter; R00.0 Tachycardia, unspecified; R06.03 Acute respiratory distress; R73.9 Hyperglycemia, unspecified; N39.0 Urinary tract infection, site not specified
CPT/HCPCS: 36415; 70450; 71275; 80048; 80053; 80179; 80307; 80320; 80329; 81001; 83605; 84443; 84484; 84703; 85007; 85025; 85027; 85378; 86140; 87086; 87804; 87811; 93005; 94761; 96361; 96365; 96366; 96372; 96375; 96376; 97112; 97161; 99285; G0378; J1200; J1885; J2060; J2405; J2550; J2765; J2919; J3360; Q9967

== ENCOUNTER 2024-06-07 19:27 | Emergency (ER) | payer OTHER, SELFPAY ==
[2024-06-07] VITALS (20 sets, daily range): BP systolic 110–137; BP diastolic 79–94; PULSE 86–113; TEMP 36.5; O2SAT 97–99; BMI 35.4
--- NOTE | 2024-06-07 19:38 | ED.GENADUL1 ---
HPI HPI - General Adult General Chief complaint: Dizziness Stated complaint: Dizziness Time Seen by Provider: 06/07/24 19:28 Mode of arrival: ambulance Limitations: no limitations History of Present Illness HPI narrative: Patient presents via EMS from home with chief complaint of an occipital headache, dizziness, nausea and diarrhea. Symptoms started 2 days ago with dizziness and headache. She has been taking ibuprofen 800 mg at a time which she states does not help the headache. She applies a heating pad which gives her some relief. She does not report fever or neck stiffness. She is nauseated but denies vomiting and she states that diarrhea started today. Patient was placed on levofloxacin and steroids during her ED visit 2 days ago because of concern for sinusitis that showed up on CT scan of the brain. She states that this headache is different from what she usually experiences which is frontal. No chills or fever are reported. Related Data Home Medications ?Medication ?Instructions ?Recorded ?Confirmed norethindrone 1 mg-ethinyl 1 tab PO DAILY 06/05/24 06/05/24 estradiol 20 mcg (21)-iron 75 mg (7) tablet (Aurovela Fe 1-20 (28)) Previous Rx's ?Medication ?Instructions ?Recorded jhycfxkduysakxt-fmqugoissgzqbxs-DD 10 ml PO Q6H PRN cold symptoms 06/05/24 2 mg-30 mg-10 mg/5 mL oral syrup #200 mL (Bromfed DM) levofloxacin 750 mg tablet 750 mg PO DAILY 10 days #10 tabs 06/05/24 meclizine 25 mg chewable tablet 25 mg PO QID PRN dizziness #12 tabs 06/05/24 (Antivert) ondansetron 4 mg disintegrating 4 mg PO Q6H PRN nausea and 06/05/24 tablet vomiting #12 tabs prednisone 20 mg tablet 20 mg PO TID #15 tabs 06/06/24 ubtuzfocgn-ezynjfnizzilr-cjyxbvfx 1 cap PO Q6H PRN headache #20 caps 06/07/24 50 mg-300 mg-40 mg capsule (Fioricet) meclizine 25 mg tablet 12.5 mg (1/2 x 25 mg) PO TID PRN 06/07/24 dizziness #20 tabs metoclopramide HCl 5 mg tablet 5 mg PO Q6H PRN nausea and 06/07/24 (Reglan) vomiting #14 tabs Allergies Allergy/AdvReac Type Severity Reaction Status Date / Time morphine Allergy Severe Anaphylaxis Verified 06/05/24 19:53 Penicillins Allergy Severe Anaphylaxis Verified 06/05/24 19:53 Opioid HPI Opioid Management Most Recent Opioid Data: Last Pain Scale 2 06/07/24 21:24 06/07/24 Last Pain Assessment 06/06/24 17:05 Last ED Pain Assessment 06/07/24 21:24 Last ORT Total Score 1 06/06/24 06:46 06/06/24 Last ORT Risk Category Low Risk 06/06/24 06:46 06/06/24 Ur Phencyclidine Scrn Negative (NEGATIVE) 06/05/24 20:30 06/05/24 Review of Systems ROS Narrative All other systems are reviewed and are negative other than what is mentioned in the HPI. PFSH PFSH Family History Grandfather Family history of stroke Social History Within the past year, how often did you have a drink containing alcohol: 2-4 times a month Within the past year, how many standard drinks containing alcohol did you have on a typical day: 3 or 4 Within the past year, how often did you have six or more drinks on one occasion: never Total score: 2 Score interpretation: A score of 3 or more indicates drinking is likely to affect patient's safety. Smoking status: Never smoker Non-prescribed substance use: denies use Highest level of school completed/degree received: high school graduate Are you now , , , , never or living with a partner: living with partner Little interest or pleasure in doing things: not at all Feeling down, depressed, or hopeless: not at all Feel stressed/tense/nervous/anxious/difficulty sleeping: not at all Do you think of yourself as: straight/heterosexual Gender Identity: female Exam Narrative Exam Narrative: Afebrile, mentating normally. There is no facial asymmetry. Speech is intact. She moves all extremities actively. Neck is supple and she does not have meningeal signs. There is no incoordination of the extremities. There is tenderness to palpation over the occipital scalp which reproduces her pain. HEENT exam is normal to inspection. Pupils are equal and reactive. EOMs are full. There is left-sided horizontal nystagmus. Neck is supple. Lung sounds are clear to auscultation bilaterally with good air entry. Heart has regular rate and rhythm. Abdomen is soft nontender. She does not have unilateral leg swelling or calf tenderness and no pedal edema. Skin is warm and dry and there is no pallor or icterus. Constitutional Vital Signs, click to edit/add: Last Vital Signs Temp 97.7 F 06/07/24 19:29 Pulse 97 H 06/07/24 22:00 Resp 20 06/07/24 22:00 BP 131/87 06/07/24 22:00 Pulse Ox 98 06/07/24 22:00 O2 Del Method Room Air 06/07/24 19:29 Course Vital Signs Vital signs: Vital Signs Temperature 97.7 F 06/07/24 19:29 Pulse Rate 101 H 06/07/24 19:29 Respiratory Rate 18 06/07/24 19:29 Blood Pressure 137/87 06/07/24 19:29 Pulse Oximetry 98 06/07/24 19:29 Oxygen Delivery Method Room Air 06/07/24 19:29 Temperature 97.7 F 06/07/24 19:29 Pulse Rate 97 H 06/07/24 22:00 Respiratory Rate 20 06/07/24 22:00 Blood Pressure 131/87 06/07/24 22:00 Pulse Oximetry 98 06/07/24 22:00 Oxygen Delivery Method Room Air 06/07/24 19:29 Medical Decision Making [facility] Narrative Medical decision making narrative: Patient presents with a chief complaint of headache and dizziness. She has had a prodrome of a respiratory illness a week prior to the onset of the symptoms for which she was taking Mucinex max. She stopped taking it 2 days ago. During her evaluation in this ED 2 days ago she was placed on levofloxacin and steroids and meclizine. She states her dizziness has not improved with meclizine. In the emergency department patient did not have meningeal signs. She was complaining mainly of dizziness and had a left-sided horizontal nystagmus. She had tenderness to the occipital scalp. She tested negative for mononucleosis. She had an elevated white count of 19.4 which I suspect is due to the steroids she has recently been started on. I find no infectious focus on her during my examination. I have treated her with IV fluids, IV Compazine, Benadryl, Toradol and Ativan. Her headache intensity has come down to 2. She still has some dizziness with some improvement in nausea. Since Zofran has not helped her I am placing her on Reglan 5 mg 3 times daily for nausea. I have advised her to continue taking meclizine and have added another prescription. For headache I have prescribed Fioricet tablets. With the occipital headache and dizziness I was concerned about a central cause but she had the same symptoms a couple days ago and her CT brain was negative for any cerebellar pathology. I have advised her to contact her PCP after the weekend and to return anytime for worsening symptoms. Again, I am not suspecting meningitis but if symptoms persist she might need further imaging of the [facility] [facility] via MRI. Lab Data Labs: Lab Results 06/07/24 06/07/24 Range/Units 19:45 19:57 WBC 19.4 H (4.0-11.0) 10^3/uL RBC 4.79 (4.20-5.40) 10^6/uL Hgb 12.8 (12.0-16.0) g/dL Hct 40.3 (36.0-48.0) % MCV 84.1 (81.0-99.0) fL MCH 26.7 (26.7-34.0) pg MCHC 31.8 (29.9-35.2) g/dL RDW 15.4 H (11.0-15.0) % Plt Count 362 (150-450) 10^3/uL MPV 10.6 (9.5-13.5) fL Neut % (Auto) 82.8 H (43.0-75.0) % Lymph % (Auto) 7.1 L (20.5-60.0) % [place] % (Auto) 7.7 (1.7-12.0) % Eos % (Auto) 0.1 L (0.9-7.0) % Baso % (Auto) 0.3 (0.2-2.0) % Neut # (Auto) 16.1 H (1.4-6.5) 10^3/uL Lymph # (Auto) 1.4 (1.2-3.8) 10^3/uL [place] # (Auto) 1.5 H (0.3-0.8) 10^3/uL Eos # (Auto) 0.0 (0.0-0.7) 10^3/uL Baso # (Auto) 0.1 (0.0-0.1) 10^3/uL Abs Immat Gran (auto) 0.38 H (0.00-0.03) 10^3/uL Imm/Tot Granulo (auto) 2.0 H (0.0-0.5) % Sodium 141 (136-145) mmol/L Potassium 3.4 L (3.5-5.1) mmol/L Chloride 106 (98-107) mmol/L Carbon Dioxide 23.9 (21.0-32.0) mmol/L Anion Gap 14.5 BUN 15.0 (7.0-18.0) mg/dL Creatinine 1.07 H (0.55-1.02) mg/dL Est GFR ( Amer) >60 (>=60 mL/min/1.73m^2) Est GFR (Non-Af Amer) >60 (>=60 mL/min/1.73m^2) BUN/Creatinine Ratio 14.0 Glucose 93 (74-106) mg/dL Calcium 9.0 (8.5-10.1) mg/dL Magnesium 1.6 L (1.8-2.4) mg/dL Total Bilirubin 0.3 (0.2-1.0) mg/dL Direct Bilirubin 0.1 (0.0-0.2) mg/dL AST 16 (15-37) U/L ALT 20 (14-59) U/L Alkaline Phosphatase 114 (46-116) U/L Total Protein 7.4 (6.4-8.2) g/dL Albumin 3.2 L (3.4-5.0) g/dL Globulin 4.2 g/dL Albumin/Globulin Ratio 0.8 Urine Color Lt. yellow (YELLOW) Urine Clarity Clear (CLEAR) Urine pH 6.0 (5.0-9.0) Ur Specific [place] 1.025 (1.005-1.025) Urine Protein Negative (NEG/TRACE) mg/dL Urine Glucose (UA) Negative (NEGATIVE) mg/dL Urine Ketones Negative (NEGATIVE) mg/dL Urine Occult Blood Trace-i (NEGATIVE) Urine Nitrite Negative (NEGATIVE) Urine Bilirubin Negative (NEGATIVE) Urine Urobilinogen 0.2 (0.2-1.0) EU/dL Ur Leukocyte Esterase Negative (NEGATIVE) Urine RBC 0-2 (0-2) #/HPF Urine WBC 0-2 A (NONE SEEN) #/HPF Ur Squamous Epith Cells Moderate A (NONE/RARE) #/LPF Urine Crystals None seen (None Seen) #/HPF Urine Bacteria Trace A (NONE SEEN) #/HPF Urine Casts None seen (NONE SEEN) #/LPF Urine Mucus None seen (NONE SEEN) Monoscreen Negative (NEGATIVE) Discharge Plan Discharge Chief Complaint: Dizziness Clinical Impression: Headache, occipital, Dizziness Patient Disposition: Home, Self-Care Time of Disposition Decision: 22:17 Condition: Fair Mode of Transportation: Private Vehicle Prescriptions / Home Meds: New metoclopramide HCl [Reglan] 5 mg tablet 5 mg PO Q6H PRN (Reason: nausea and vomiting) Qty: 14 0RF chcffywiii-rhwyomxezmkda-fecb [Fioricet] 50-300-40 mg capsule 1 cap PO Q6H PRN (Reason: headache) Qty: 20 0RF meclizine 25 mg tablet 12.5 mg PO TID PRN (Reason: dizziness) Qty: 20 0RF No Action norethindrone-e.estradiol-iron [Aurovela Fe 1-20 (28)] 1 mg-20 mcg (21)/75 mg (7) tablet 1 tab PO DAILY levofloxacin 750 mg tablet 750 mg PO DAILY 10 Days Qty: 10 0RF bexxisfcmhaelrt-mdrluxxyo-AD [Bromfed DM] 2-30-10 mg/5 mL syrup 10 ml PO Q6H PRN (Reason: cold symptoms) Qty: 200 0RF ondansetron 4 mg tablet,disintegrating 4 mg PO Q6H PRN (Reason: nausea and vomiting) Qty: 12 0RF meclizine [Antivert] 25 mg tablet,chewable 25 mg PO QID PRN (Reason: dizziness) Qty: 12 0RF prednisone 20 mg tablet 20 mg PO TID Qty: 15 0RF Print Language: Serbian Instructions: Vertigo (ED), Acute Headache (ED) Additional Instructions: Stop taking Zofran. Stop taking Mucinex max. Follow-up with your physician after the weekend for further management. Return to the emergency department anytime for worsening symptoms. Referrals: Annette Boothe NP [Primary Care Provider] - As soon as possible Discharge Date/Time: 06/07/24 22:53
[2024-06-07 20:02] LABS: Basophils Absolute Auto 0.1 10^3/uL (0.0-0.1); Basophils Percent Auto 0.3 % (0.2-2.0); Eosinophils Percent Auto 0.1 % (0.9-7.0); Hematocrit 40.3 % (36.0-48.0); Hemoglobin 12.8 g/dL (12.0-16.0); Immature Granulocytes Abs Auto 0.38 10^3/uL (0.00-0.03); Lymphocytes Absolute Auto 1.4 10^3/uL (1.2-3.8); Lymphocytes Percent Auto 7.1 % (20.5-60.0); Mean Corpuscular HGB Conc 31.8 g/dL (29.9-35.2); Mean Corpuscular Hemoglobin 26.7 pg (26.7-34.0); Mean Corpuscular Volume 84.1 fL (81.0-99.0); Mean Platelet Volume 10.6 fL (9.5-13.5); Monocytes Absolute Auto 1.5 10^3/uL (0.3-0.8); Monocytes Percent Auto 7.7 % (1.7-12.0); Neutrophils Absolute Auto 16.1 10^3/uL (1.4-6.5); Neutrophils Percent Auto 82.8 % (43.0-75.0); Platelet Count 362 10^3/uL (150-450); Red Blood Count 4.79 10^6/uL (4.20-5.40); Red Cell Distribution Width 15.4 % (11.0-15.0); White Blood Count 19.4 10^3/uL (4.0-11.0)
[2024-06-07 20:08] LABS: Internal Control Within Normal Limits; Mono Screen NEGATIVE (NEGATIVE)
[2024-06-07 20:14] LABS: Alanine Aminotransferase 20 U/L (14-59); Albumin Globulin Ratio 0.8; Albumin Level 3.2 g/dL (3.4-5.0); Alkaline Phosphatase 114 U/L (46-116); Anion Gap 14.5; Aspartate Amino Transferase 16 U/L (15-37); Bilirubin Direct 0.1 mg/dL (0.0-0.2); Bilirubin Total 0.3 mg/dL (0.2-1.0); Carbon Dioxide 23.9 mmol/L (21.0-32.0); Chloride 106 mmol/L (98-107); Estimated GFR (African America >60 (>=60 mL/min/1.73m^2); Estimated GFR (Non-African Ame >60 (>=60 mL/min/1.73m^2); Globulin 4.2 g/dL; Glucose 93 mg/dL (74-106); Magnesium 1.6 mg/dL (1.8-2.4); Potassium 3.4 mmol/L (3.5-5.1); Sodium 141 mmol/L (136-145); Total Protein 7.4 g/dL (6.4-8.2)
[2024-06-07 20:22] LABS: Bilirubin Urine NEGATIVE (NEGATIVE); Blood Urine TRACE-I (NEGATIVE); Clarity Urine CLEAR (CLEAR); Color Urine LT. YELLOW (YELLOW); Glucose Urine UA NEGATIVE (NEGATIVE); Ketones Urine NEGATIVE (NEGATIVE); Leukocyte Esterase Urine NEGATIVE (NEGATIVE); Nitrite Urine NEGATIVE (NEGATIVE); Protein Urine NEGATIVE (NEG/TRACE); Specific Gravity Urine 1.025 (1.005-1.025); Urobilinogen Urine 0.2 EU/dL (0.2-1.0)
[2024-06-07 20:23] LABS: Urine Microscopic Indicated YES
[2024-06-07] MEDS: 0.9 % SODIUM CHLORIDE 1,000 ML 1000 ML IV (20:24)
[2024-06-07] MEDS: LORAZEPAM 2 MG/ML VIAL 1 MG IV (20:27)
[2024-06-07] MEDS: DIPHENHYDRAMINE HCL 50 MG/ML VIAL 25 MG IV (20:28)
[2024-06-07 20:29] LABS: Bacteria Urine TRACE #/HPF (NONE SEEN); Crystals Seen? None Seen #/HPF (None Seen); Mucus Urine NONE SEEN (NONE SEEN); RBC Urine 0-2 #/HPF (0-2); Squamous Epithelial Cell Urine MODERATE #/LPF (NONE/RARE); WBC Urine 0-2 #/HPF (NONE SEEN)
[2024-06-07] MEDS: KETOROLAC TROMETHAMINE 30 MG/ML VIAL 15 MG IVP (20:29)
[2024-06-07 20:30] LABS: Cast Seen? NONE SEEN #/LPF (NONE SEEN)
[2024-06-07] MEDS: PROCHLORPERAZINE 10 MG/2 ML VIAL IV (20:34)
[2024-06-07] MEDS: MAGNESIUM SULFATE IN WATER 2 GM/50 ML PREMIX IV (20:34)
--- NOTE | 2024-06-07 23:04 | ECG_ITS ---
[facility] Test Date: 2024-06-07 Pat Name: ANGELA SMITH Department: Room: - Gender: Female [employer]: : 1995 Requested By: SHITAL CAMARGO Order Number: [id number] Reading MD: SHITAL CAMARGO Measurements Intervals [place] Rate: 108 P: 68 LA: 150 QRS: 38 QRSD: 70 T: 11 QT: 320 QTc: 384 Interpretive Statements 1120 Sinus tachycardia 8102 Low QRS voltage in chest leads 9140 abnormal rhythm ECG Compared to ECG 06/05/2024 19:57:17 Sinus rhythm no longer present Myocardial infarct finding no longer present T-wave abnormality no longer present Electronically Signed On 06-12-2024 7:05:51 EST by SHITAL CAMARGO
== END 2024-06-07 22:53 | disposition home or self-care (01) ==
PROVIDERS: Emergency Provider Emergency Medicine; PCP Nurse Practitioner Family
DX: R42 Dizziness and giddiness (principal); R51.9 Headache, unspecified
CPT/HCPCS: 36415; 80048; 80076; 81001; 83735; 85025; 86308; 93005; 96365; 96375; 99285; J0780; J1200; J1885; J2060; J3475

== ENCOUNTER 2024-06-09 06:44 | Emergency (ER) | payer OTHER, SELFPAY ==
[2024-06-09] VITALS (26 sets, daily range): BP systolic 106–148; BP diastolic 75–97; PULSE 79–118; TEMP 36.6; O2SAT 97–100; BMI 34.2
--- NOTE | 2024-06-09 06:50 | ECG_ITS ---
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
--- NOTE | 2024-06-09 06:50 | XR_ITS ---
The [address] [address] Patient Name: ANGELA SMITH MRN: [id number] date: 1995 Sex: F Assigned Patient Location: ER Current Patient Location: ER Accession/Order Number: [id number] Exam Date: 06/09/2024 08:07 Report Date: 06/09/2024 08:27 At the request of: WELLINGTON BURNETT Procedure: XR chest 1V EXAM: XR chest 1V HISTORY: cough COMPARISON: None. TECHNIQUE: AP erect portable chest radiograph performed. FINDINGS: The trachea is midline. The heart size is normal. The cardiomediastinal silhouette and hilar shadows are normal. There is no consolidation, pleural effusion or pulmonary vascular congestion. There is no pneumothorax and the osseous structures are unremarkable. XR/XR chest 1V IMPRESSION: Unremarkable AP erect portable chest radiograph. Electronically authenticated by: SID DRAPER Date: 06/09/2024 08:27
--- OUTSIDE RECORDS SUMMARY | 2024-06-09 06:50 | XMS_ITS | CCD ---
Author Organization [facility] Care Team Providers Care Blood Bank Technologist Name Role Phone DO Laz Ferrari Primary Care Provider MD Tye Rubio Attending Provider [phone] LAZ FERRARI Primary Care Physician Angie Garcia Attending Unavailable Angie Garcia Admitting Unavailable DO Laz Ferrari Primary Care Provider MD Tye Rubio Attending Provider [phone] DO Laz Ferrari Primary Care Provider DO Eryn Okeefe Attending Provider MD Soto Bull Attending Provider NO FAMILY, PHYSICIAN Primary Care Provider Unava ilable DO Eryn Okeefe Admit Provider ViscEryn kaur Admitting Unavailable ViscEryn kaur Attending Unavailable Laz Ferrari Primary Care Unavailable Viscnatasha, Eryn Attending Unavailable NO FAMILY, PHYSICIAN Primary Care Unavailable Viscnatasha, Eryn Admitting Unavailable Laz Ferrari Primary Care Unavailable Soto Bull Admitting Unavailable Soto Bull Attending Unavailable ViscEryn kaur Admitting Unavailable Viscnatasha, Eryn Attending Unavailable NO FAMILY, PHYSICIAN Primary Care Unavailable Unallocated , Noms Provider Primary Care Provi ildefonso DIGNA HIRSCH Primary Care Physician Hayden Mares Attending Unavailable JERRY HIRSCH Attending UnavailJERRY Sampson Attending UnavailJERRY Sampson Admitting UnavailJERRY Sampson Attending Unavailabl e JOYCELYN, TICKET WRITER DIGNA A Admitting Unavailabl e JOYCELYN, JERRY DIGNA A Attending Unavailabl e Unallocated , Noms Provider Primary Care Provi ildefonso JENNIFER SOLORIO Attending Unavailable VISCI, ERYN A Attending Unavailable VISCI, ERYN A Attending Unavailable VISCI, ERYN A Attending Unavailable NEGRA, IDRIS N Attending Unavailable VISCI, ERYN A Attending Unavailable VISCI, ERYN A Referring Unavailable VISCI, ERYN A Attending Unavailable VISCI, ERYN A Attending Unavailable VISCI, ERYN A Referring Unavailable VISCI, ERYN A Attending Unavailable VISCI, ERYN A Attending Unavailable VISCI, ERYN A Attending Unavailable VISCI, ERYN A Referring Unavailable VISCI, ERYN A Attending Unavailable VISCI, ERYN A Referring Unavailable VISCI, ERYN A Attending Unavailable VISCI, ERYN A Attending Unavailable VISCI, ERYN A Attending Unavailable VISCI, ERYN A Referring Unavailable VISCI, ERYN A Attending Unavailable VISCI, ERYN A Referring Unavailable VISCI, ERYN A Attending Unavailable VISCI, ERYN A Referring Unavailable NEGRA, IDRIS N Attending Unavailable NEGRA, IDRIS N Referring Unavailable Elieser Matamoros S. Attending Unavailable JOYCELYN, DIGNA A Attending Unavailable JOYCELYN, DIGNA A Attending Unavailable JOYCELYN, DIGNA A Attending Unavailable JOYCELYN, DIGNA A Admitting Unavailable Shiloh, Elieser S. Attending Unavailable JOYCELYN, DIGNA A Attending Unavailable Allergies Allergy Classification Reported Allergen(s) Allergy Type Date of Onset Reaction(s) Facility Adhesive Tape (1 source) Adhesive Tape Substance Allergy 3 [facility] Opioid Agonists (1 source) Morphine Drug Allergy 3 Anaphylaxis [facility] Penicillins (antibiotic) (1 source) Penicillins Drug Allergy 3 Dysuria [facility] (20 sources) Morphine; Translations: [morphine] Drug Allergy 2 Anaphylaxis [facility] (17 sources) Penicillins; Translations: [Penicillins] Allergy to substance 2 Dysuria, swelling, blood in urination [facility] (6 sources) Adhesive Tape; Translations: [adhesive tape] Allergy to substance 3 [facility] (9 sources) Penicillin G sodium Allergy to substance 3 [facility] (9 sources) Wound Dressing Adhesive Drug Allergy 3 [facility] (3 sources) Morphine; Translations: [Morphine Sulfate] Drug Allergy [facility] Repository Medications Current Medications Medication Drug Class(es) Dates Sig (Normalized) Sig (Original) Albuterol (Eqv-Proventil HFA) 90 mcg/inh inhalation aerosol (1 source) Start: 04-12-2024 take 6 g by mouth every four hours as needed for wheezing Albuterol (Eqv-Proventil HFA) 90 mcg/inh inhalation aerosol 6 gm, 0 Refill(s), INHALE 2 PUFFS BU MOUTH EVERY 4 HOURS NEEDED FOR WHEEZING OR SHORTNESS OF BREATH FOR 7 DAYS, Refills(s) 0 Start Date: 04/12/24 Status: Ordered ethinyl estradiol 0.02 mg / ferrous fumarate 75 mg / norethindrone 1 mg oral tablet (7 sources) Estrogen Start: 03-07-2024 Aurovela Fe 05/13 oral tablet 1 tab(s), Refill(s) 0 Start Date: 03/07/24 Status: Ordered Start: 2024 End: 02-25-2025 norethindrone-ethinyl estrad iol (Loestrin Fe 05/13) 1-20 MG-MCG tablet Indications: Nexplanon removal Take 1 tablet by mouth Daily 90 tablet 3 2024 02/25/2025 Active ibuprofen 800 mg oral tablet (20 sources) Nonsteroidal Anti-inflammatory Drug Start: 04-12-2024 take 1 tablet by mouth three times daily as needed for pain ibuprofen 800 mg Tab 800 mg = 1 tab(s), Oral, TID, PRN for pain, # 90 tab(s), Refills(s) 1, Pharmacy: [facility]/pharmacy #[id number], 160, cm, 04/12/24 11:29:00 EST, Height/Length Dosing, 90.8, kg, 04/12/24 11:29:00 EST, Weight Dosing Start Date: 04/12/24 Status: Ordered Start: 10-10-2023 take 1 tablet by gio th every six hours as needed for pain and pain ibuprofen 600 MG tablet Take 600 mg by mouth every 6 (six) hours if needed for mild pain or moderate pain 10/10/2023 Active Start: 10-10-2023 Ibuprofen Acti ve 600 MG PO Every 6 hours October 10, 2023 12:00am do not exceed 4 doses in a 24 hour period Start: 08-12-2020 End: 12-07-2021 take 600 mg by mouth every six hours Ibuprofen Discontinued 600 MG PO Q6H August 12, 2020 12:00am December 07, 2021 3:38pm methylPREDNISolone 4 mg oral tablet (2 sources) Corticosteroid Start: 04-05-2024 End: 04-11-2024 Medrol 4 mg Tab = 1 packet(s), Oral, As Directed, as directed on package labeling, X 6 day(s), # 21 tab(s), Refills(s) 0, Pharmacy: [facility]/pharmacy #[id number], 160, cm, 04/05/24 10:48:00 EST, Height/Length Dosing, 91.1, kg, 04/05/24 10:48:00 EST, Weight Dosing Start Date: 04/05/24 Stop Date: 04/11/24 Status: Ordered Vit-Fe Fumarate-FA ( Vitamins) 28-0.8 MG tablet (7 sources) Start: 02-24-2023 End: 2024 take 1 tablet by mouth in the morning Vit-Fe Fumarate-FA ( Vitamins) 28-0.8 MG tablet Indications: care, subsequent in first trimester Take 1 tablet by mouth in the morning. 30 tablet 11 02/24/2023 2024 Discontinued (Other) Start: 02-24-2023 End: 02-24-2024 take 1 tablet by mouth in the morning Vit-Fe Fumarate-FA ( Vitamins) 28-0.8 MG tablet Indications: care, subsequent in first trimester Take 1 tablet by mouth in the morning. 30 tablet 11 02/24/2023 02/24/2024 Active spironolactone 50 mg oral tablet (20 sources) Aldosterone Antagonist Start: 03-07-2024 spironolactone 50 mg Tab 50 mg = 1 tab(s), Refills(s) 0 Start Date: 03/07/24 Status: Ordered Start: 11-03-2023 take 3 tablets by mo uth once daily spironolactone (Aldactone) 50 MG tablet Take 150 mg by mouth Daily 11/03/2023 Active Start: 12-07-2021 End: 10-10-2023 take 50 mg by mouth three times daily Spironolactone Discontinued 50 MG PO Three times daily December 07, 2021 12:00am October 10, 2023 2:12pm triamcinolone acetonide 0.001 mg/mg topical ointment (10 sources) Corticosteroid Start: 08-18-2023 End: 12-16-2023 triamcinolone (Kenalog) 0.1 % ointment Indications: Vulvar irritation APPLY THIN FILM TWICE A DAY UNTIL SYMTOMS RESOLVE, THEN WEEN TO ONCE A DAY FOR SEVERAL DAYS, THEN EVERY OTHER DAY, THEN STOP 30 g 12/16/2023 Active Ventolin HFA 90 mcg/inh Aerosol (4 sources) Start: 12-25-2018 take 2 puff(s) by inhalation once for wheezing Ventolin HFA 90 mcg/inh Aerosol 2 puff(s), Inhalation, Once for wheezing, 18 gram, Refill(s) 0, [facility] #[id number] Start Date: 12/25/18 Status: Ordered Completed/Discontinued Medications Medication Drug Class(es) Dates Sig (Normalized) Sig (Original) acetaminophen 325 mg oral tablet (20 sources) Start: 12-07-2021 End: 09-01-2023 take 650 mg by mouth every six hours Acetaminophen Discontinued 650 MG PO Q6H December 07, 2021 12:00am September 01, 2023 2:17pm Start: 01-15-2021 End: 01-15-2021 Acetaminophen (Tylenol) 325 mg Tablet Discontinued MG TABLET January 15, 2021 12:00am January 15, 2021 10:49am Start: 08-12-2020 End: 11-27-2020 take 1000 mg by mouth every six hours Acetaminophen Discontinued 1000 MG PO Q6H August 12, 2020 12:00am November 27, 2020 1:26pm acetaminophen 325 mg / HYDROcodone bitartrate 5 mg oral tablet (20 sources) Opioid Agonist Start: 06-02-2022 End: 09-01-2023 take 1 tablet by mouth every six hours Hydrocodone-Acetaminophen Discontinued 1 TAB PO Q6H 10 11June 02, 2022 September 01, 2023 2:17pm Start: 12-16-2021 End: 03-30-2022 take 1 tablet by mouth every six hours Hydrocodone-Acetaminophen Discontinued 1 TAB PO Q6H 20 December 16, 2021 March 30, 2022 7:30am Start: 12-16-2021 take 1 tablet by gio th every six hours Hydrocodone-Acetaminophen Active 1 TAB P O Q6H 20 December 16, 2021 Start: 12-16-2021 take 1 tablet by gio th every six hours Hydrocodone-Acetaminophen Active 1 TAB P O Q6H 20 December 16, 2021 Start: 11-27-2020 End: 12-07-2021 take 1 tablet by mouth every six hours Hydrocodone-Acetaminophen Discontinued 1 TAB PO Q6H 30 January 15, 2021 December 07, 2021 3:38pm Start: 02-12-2018 End: 03-22-2020 take 1-2 tablets by mouth every six hours as needed for pain Hydrocodone-Acetaminophen ([place]and[place]) 5-325 mg tablet Discontinued 2 TAB PO Q6H 30 May 10, 2019 March 23, 2020 12:32am 1-2 tabs every 6 hours as needed for pain Start: 03-09-2017 End: 07-25-2017 take 1-2 tablets by mouth every six hours as needed for pain Hydrocodone-Acetaminophen (Alexandria) 5-325 mg tablet Discontinued 2 TAB PO Q6H 45 March 09, 2017 1:00am July 25, 2017 2:43pm 1-2 tabs every 6 hours as needed for pain [id number] actuat albuterol 0.09 mg/actuat metered dose inhaler (15 sources) beta2-Adrenergic Agonist Start: 05-30-2022 End: 10-10-2023 take 1 puff(s) by inhalation every four to six hours Albuterol Sulfate (Ventolin Hfa) 90 mcg/actuation HFA aerosol inhaler Discontinued 2 - 3 PUFF INHALATION EVERY 4-6 HOURS May 30, 2022 1:00am October 10, 2023 2:12pm Start: 01-23-2022 take 2 puff(s) by in halation every six hours albuterol HFA 90 mcg/act inhaler Inhale 2 puffs every 6 (six) hours if needed. 01/23/2022 Active benzocaine 200 mg/ml / menthol 5 mg/ml topical spray (10 sources) Standardized Chemical Allergen Start: 08-12-2020 End: 01-15-2021 Benzocaine-Menthol (Dermoplast (With Menthol)) 20-0.5 % Aerosol Discontinued 1 APPLIC TOPICAL PRN August 12, 2020 12:00am January 15, 2021 8:38am benzoyl peroxide 50 mg/ml medicated liquid soap (10 sources) Start: 12-07-2021 End: 10-10-2023 Benzoyl Peroxide Discontinued 1 APPLIC TOPICAL Daily December 07, 2021 12:00am October 10, 2023 2:12pm benzoyl peroxide 0.05 mg/mg / clindamycin phosphate 0.012 mg/mg topical gel (10 sources) Lincosamide Antibacterial Start: 12-07-2021 End: 10-10-2023 Clindamycin-Benzoyl Peroxide Discontinued 1 APPLIC TOPICAL Twice daily December 07, 2021 12:00am October 10, 2023 2:12pm cephalexin 500 mg oral capsule (3 sources) Cephalosporin Antibacterial Start: 09-01-2023 End: 10-10-2023 take 500 mg by mouth every six hours Cephalexin Discontinued 500 MG PO Every 6 hours 28 September 01, 2023 12:00am October 10, 2023 2:12pm docusate sodium 100 mg oral capsule (10 sources) Start: 08-12-2020 End: 11-27-2020 take 1 capsule by mouth once daily at bedtime Docusate Sodium (Dok) 100 mg Capsule Discontinued 100 MG PO Daily at bedtime August 12, 2020 12:00am November 27, 2020 10:27am doxycycline hyclate 100 mg oral capsule (16 sources) Tetracycline-class Drug Start: 05-30-2022 End: 09-01-2023 take 100 mg by mouth twice daily Doxycycline Hyclate Discontinued 100 MG PO Twice daily May 30, 2022 1:00am September 01, 2023 2:17pm Start: 12-11-2020 End: 01-15-2021 take 100 mg by mouth every twelve hours Doxycycline Hyclate Discontinued 100 MG PO Q12H 20 December 11, 2020 12:00am January 15, 2021 8:38am etonogestrel 68 mg drug implant (10 sources) Progestin Start: 07-25-2017 End: 02-12-2018 Etonogestrel Discontinued 1 IMPLANT SUBDERMAL Once July 25, 2017 12:00am February 12, 2018 10:47am fluticasone propionate 0.05 mg/actuat metered dose nasal spray (10 sources) Corticosteroid Start: 12-07-2021 End: 03-30-2022 Fluticasone Propionate Discontinued 1 SPRAY INTRANASAL As Directed December 07, 2021 12:00am March 30, 2022 7:30am metroNIDAZOLE 500 mg oral tablet (10 sources) Nitroimidazole Antimicrobial Start: 03-09-2017 End: 07-25-2017 take 500 mg by mouth twice daily Metronidazole Discontinued 500 MG PO Twice daily March 09, 2017 1:00am July 25, 2017 2:44pm predniSONE 20 mg oral tablet (1 source) Start: 12-25-2018 predniSONE 20 mg Tab 20 mg = 1 tab(s), Oral, As Directed, Take three tabs by mouth for three days, then two tabs for three days, then one tab for three days, # 18 tab(s), Refills(s) 0, Pharmacy: [facility] #[id number] Start Date: 12/25/18 Status: Ordered Prenat.Vits,Ish,Min -Iron-Folic (10 sources) Start: 03-22-2020 End: 01-15-2021 take 1 tablet by mouth once daily Prenat.Vits,Ish,Mi n-Ctcu-Thscu Discontinued 1 TAB PO Daily March 22, 2020 12:00am January 15, 2021 7:38am Start: 03-22-2020 End: 01-15-2021 take 1 tablet by mouth once daily Prenat.Vits,Ish,Brz-Rcke-Inyyy Discontin ued 1 TAB PO Daily March 22, 2020 1:00am January 15, 2021 8:38am Vit No.334-Thlm-Hcglf ( Vitamin) 27 mg iron- 800 mcg tablet (1 source) Start: 10-10-2023 End: 10-12-2023 take 1 tablet by mouth once daily Vit No.517-Tofo-Rmsgr ( Vitamin) 27 mg iron- 800 mcg tablet Discontinued 1 TAB PO Daily October 10, 2023 12:00am October 12, 2023 12:02pm primidone 50 mg oral tablet (11 sources) Anti-epileptic Agent Start: 06-11-2018 End: 05-10-2019 take 50 mg by mouth once daily Primidone Discontinued 50 MG PO Daily October 19, 2018 12:00am May 10, 2019 12:32pm sulfamethoxazole 800 mg / trimethoprim 160 mg oral tablet (10 sources) Dihydrofolate Reductase Inhibitor Antibacterial, Sulfonamide Antimicrobial Start: 11-27-2020 End: 01-15-2021 take 1 tablet by mouth every twelve hours Sulfamethoxazole-Trim ethoprim (Bactrim Ds) 800-160 mg tablet Discontinued 1 TAB PO Q12H November 27, 2020 12:00am January 15, 2021 8:39am traMADol hydrochloride 50 mg oral tablet (10 sources) Opioid Agonist Start: 08-03-2017 End: 02-12-2018 take 0.5-1 tablets by mouth every six hours as needed for pain Tramadol (Ultram) 50 mg tablet Discontinued 50 MG PO Q6H 45 7 August 03, 2017 12:00am February 12, 2018 10:48am 1/2 - 1 tab po q 6 hours prn pain witch deacon 500 mg/ml medicated pad (10 sources) Start: 08-12-2020 End: 01-15-2021 Glycerin-Witch Deacon (A.E.R. Witch Deacon) 12.5-50 % Pads, Medicated Discontinued 1 PAD TOPICAL PRN August 12, 2020 12:00am January 15, 2021 8:38am Problems Active Problems Problem Classification Problem Date Documented Date Episodic/Chronic Asthma (4 sources) Exercise-induced asthma 04-29-2016 Chronic Cardiac dysrhythmias (1 source) Palpitations; Translations: [Palpitations] Onset: 04-29-2024 Episodic Contraceptive and procreative management (7 sources) Patient encounter status; Translations: [Encounter for initial prescription of implantable subdermal contraceptive] 02-15-2024 Episodic Diabetes or abnormal glucose tolerance complicating ; childbirth; or the puerperium (1 source) Abnormal glucose complicating ; Translations: [Abnormal glucose complicating ] Onset: 07-22-2023 Episodic E Codes: Fall (12 sources) Fall; Translations: [Unspecified fall, initial encounter] 03-22-2020 Episodic Nonspecific chest pain (1 source) Chest pain; Translations: [Chest pain, unspecified] Onset: 04-29-2024 Episodic Other aftercare (10 sources) Wound finding; Translations: [Encounter for other specified aftercare] 10-20-2018 Episodic Other complications of ; puerperium affecting management of mother (6 sources) Vaginal abnormality - baby delivered; Translations: [Other complications of the puerperium, not elsewhere classified] 08-18-2020 Episodic Other complications of ; puerperium affecting management of mother (4 sources) Vaginal abnormality in , childbirth and the puerperium; Translations: [Other complications of the puerperium, not elsewhere classified] 08-18-2020 Episodic Other connective tissue disease (1 source) Pain in left arm; Translations: [Pain in left arm] 2024 Episodic Other connective tissue disease (2 sources) Pain in right hand; Translations: [Pain in right hand] 04-18-2024 Episodic Other female genital disorders (11 sources) History of past delivery; Translations: [Status post vaginal delivery] 08-12-2020 Episodic Other non-traumatic joint disorders (2 sources) Pain of right wrist; Translations: [Pain in right wrist] 04-18-2024 Episodic Other nutritional; endocrine; and metabolic disorders (1 source) Obese class II; Translations: [Body mass index (BMI) 35.0-35.9, adult] Onset: 03-07-2024 Chronic Other nutritional; endocrine; and metabolic disorders (1 source) Body mass index 30+ - obesity 04-12-2024 Chronic Other screening for suspected conditions (not mental disorders or infectious disease) (12 sources) Encounter for screening for Streptococcus B; Translations: [Encounter for suspected problem with amniotic cavity and membrane ruled out] Onset: 07-25-2016 07-29-2016 Episodic Comment on above: MRSA abscess rt [address] 07/25/16 Other skin disorders (10 sources) Axillary hidradenitis suppurativa; Translations: [Hidradenitis suppurativa] 12-07-2021 Episodic Other skin disorders (10 sources) Hidradenitis; Translations: [Hidradenitis suppurativa] 11-27-2020 Episodic Other skin disorders (3 sources) Hidradenitis suppurativa; Translations: [Hidradenitis suppurativa] 2024 Episodic Screening and history of mental health and substance abuse codes (4 sources) H/O: psychiatric disorder 08-06-2014 Episodic Skin and subcutaneous tissue infections (4 sources) Pilonidal cyst 06-28-2013 Episodic Spondylosis; intervertebral disc disorders; other back problems (1 source) Pain in lumbar spine 04-09-2024 Episodic Sprains and strains (2 sources) Injury of right hand; Translations: [Sprain of unspecified part of right wrist and hand, initial encounter] 04-18-2024 Episodic Substance-related disorders (4 sources) Smoker 07-22-2016 Chronic Comment on above: Added secondary to d ocumentation in Social History. Past or Other Problems Problem Classification Problem Date Documented Date Episodic/Chronic Other female genital disorders (1 source) Vulval irritation; Translations: [Other specified noninflammatory disorders of vulva and perineum] 12-16-2023 Episodic Other female genital disorders (2 sources) History of abnormal cervical Papanicolaou smear ; Translations: [Personal history of other diseases of the female genital tract] 01-09-2024 Episodic Other and delivery including normal (13 sources) ; Translations: [Encounter for supervision of normal , unspecified, unspecified trimester] Onset: 10-10-2023 03-22-2020 Episodic Unclassified (4 sources) Streptococcus agalactiae (organism) Resolved: 12-31-2015 01-02-2016 Unclassified (12 sources) Onset: 04-06-2015 04-28-2021 Comment on above: New problem added to resolve merged issue. Results Test Name Value Interpretation Reference Range Facility [facility] [place] 04-29-2024 CTA Chest Exam Date/Time: 04/28/2024 23:21 EST Reason for Exam: Elevated D-Dimer Report IMPRESSION: NO EVIDENCE OF PULMONARY EMBOLI OR ACTIVE CARDIOPULMONARY DISEASE. EXAM: CTA Chest DATE: 04/28/2024 10:57 PM CLINICAL HISTORY: Chest pain. COMPARISON: None available TECHNIQUE: Spiral enhanced images were obtained of the chest after the infusion of approximately 55 mL of Isovue 370 contrast with pulmonary artery CTA protocol. Routine and volume rendered images were performed on a three-dimensional workstation. All CT scans at this facility use dose modulation, iterative reconstruction, and/or weight based dosing when appropriate to reduce radiation dose to as low as reasonably achievable. Unless otherwise stated, incidental findings identified in this report do not require routine follow-up imaging. FINDINGS: Pulmonary arteries: Normal in caliber without filling defects identified to suggest pulmonary emboli. Thoracic aorta: Normal in caliber without significant atherosclerotic plaquing. There is no dissection. Heart: Not enlarged. No significant coronary artery calcifications identified, within the limits of cardiac motion artifact. No significant pericardial effusion. Mediastinum and lymph nodes: No pathologically enlarged mediastinal, hilar, or axillary lymph nodes. Lungs and pleura: No focal consolidation, pleural effusion, or pneumothorax. Thyroid: Unremarkable. Esophagus: Unremarkable. Musculoskeletal: No acute osseous findings identified. Upper abdomen: Noncontributory. Report Ordering Provider: Elieser Matamoros FINAL REPORT Dictated: 04/29/2024 11:07 am Tomas Frye MD Signed (Electronic Signature): 04/29/2024 11:07 am Signed by: Tomas Frye MD Transcribed by: MATTHEW Technologist: STEPHANIE Technical Comments GFR (mL/min/1/73m2) n/a-age Contrast: Isovue 370 Contrast amount in ml's: 55 Normal [facility] ED Clinical Summaryon 2024 ED Clinical Summary ED Clinical Summary [place] [address] ED Clinical Summary Person Information Name: ANGELA SMITH Jacqui/[facility] Age: 29 Years : 1995 Sex: Female Language: Japanese PCP: DIGNA HIRSCH CNP Marital Status: Single Visit Id: Visit Reason: Nausea; Chest pain; tachycardia, sob, slight chest pain Speciality: Acuity: 3 Enc Type: Emergency Med Service: Emergency Arrival: 04/28/2024 21:51:53 Discharge: 04/29/2024 02:51:49 LOS: 000 05:00 Checkin: 04/28/2024 21:51:53 Checkout: 04/29/2024 02:51:49 Dispo Type: Home (Routine DC) EVENTS: Event Name Event Status Request Date/Time Start Date/Time Complete Date/Time Arrive Complete 04/28/2024 21:51:53 04/28/2024 21:51:53 04/28/2024 21:51:53 Document Home Meds Request 04/28/2024 21:51:53 Triage Complete 04/28/2024 21:51:53 04/28/2024 21:56:04 04/28/2024 21:56:04 Bed Assign Complete 04/28/2024 21:51:53 04/28/2024 21:51:53 04/28/2024 21:51:53 Dr Exam Complete 04/28/2024 21:51:53 04/28/2024 21:52:54 04/28/2024 21:52:54 RN Exam Complete 04/28/2024 21:51:53 04/29/2024 00:50:11 04/29/2024 00:50:11 Registration Complete 04/28/2024 21:52:54 04/28/2024 22:28:17 04/28/2024 22:28:17 EKG Complete 04/28/2024 21:53:29 04/28/2024 22:08:49 Pending Labs Complete 04/28/2024 21:53:29 04/28/2024 23:47:05 Lab Complete 04/28/2024 21:53:29 04/28/2024 22:53:40 Patient Care Request 04/28/2024 21:53:29 RT Request 04/28/2024 21:53:29 Isolation Screening Request 04/28/2024 21:56:04 Pending Labs Complete 04/28/2024 22:17:24 04/28/2024 22:17:24 04/28/2024 22:44:42 Lab Complete 04/28/2024 22:17:24 04/28/2024 22:17:24 04/28/2024 22:44:42 Reg Complete Request 04/28/2024 22:28:17 Reg Bed Request Complete 04/28/2024 22:28:17 04/28/2024 22:28:17 04/28/2024 22:28:17 CT Complete 04/28/2024 22:49:26 04/28/2024 22:57:59 04/28/2024 23:21:59 Pending Labs Complete 04/29/2024 00:23:06 04/29/2024 00:23:06 04/29/2024 00:23:06 Discharge Complete 04/29/2024 01:09:11 04/29/2024 02:51:56 04/29/2024 02:51:56 Transfer Complete 04/29/2024 02:51:56 04/29/2024 02:51:56 04/29/2024 02:51:56 ADDRESS: [place] [facility] [id number] PHYS DOC NOTES: MEDICAL INFORMATION: Prescriptions Given: Medications to Continue with No Changes Other Medications albuterol (Albuterol (Eqv-Proventil HFA) 90 mcg/inh inhalation aerosol) 6 gm, 0 Refill(s), INHALE 2 PUFFS BU MOUTH EVERY 4 HOURS NEEDED FOR WHEEZING OR SHORTNESS OF BREATH FOR 7 DAYS. albuterol (Ventolin HFA 90 mcg/inh Aerosol) 2 Puffs Inhalation Once as needed for wheezing. Refills: 0. ethinyl estradiol-norethindro ne (Aurovela Fe 05/13 oral tablet) 1 Tablets. ibuprofen (ibuprofen 800 mg Tab) 1 Tablets By Mouth 3 times a day as needed for pain. Refills: 1. spironolactone (spironolactone 50 mg Tab) 1 Tablets. PATIENT EDUCATION INFORMATION: Instructions: Palpitations; Nonspecific Chest Pain, Adult Follow up: With: Address: When: DIGNA HIRSCH [address] [place] [address] [phone] Business (1) In 3 days DIAGNOSIS: Chest pain; Palpitations Normal [facility] ED Note-Physicianon 04-29-19 ED Note-Physician ED Note-Physician Basic Information Time Seen: Elieser Matamoros DO 04/28/2024 21:52 Chief Complaint Pt. arrived by EMS reporting chest pain started yesterday afternoon and got worse tonight. Zofran 4mg IV given History of Present Illness HPI: Patient is a 29-year-old female who presents the ED via EMS from home for chest pain, palpitations, nausea, shortness of breath. Patient states that this for started yesterday and tonight her symptoms intensified. She states the pain is primarily in the right side of her chest but radiating to her back and the left side of her chest. She does have associated shortness of breath and nausea with this. She has never had anything like this in the past. She received 4 baby aspirin as well as 4 mg of Zofran by EMS and states that the chest pain has currently resolved. ROS: Pertinent review of systems conducted and is negative except as noted above. Physical exam: General: nontoxic appearing and in no distress HEENT: Mucous membranes moist Neuro: awake and alert Neck: supple, trachea midline Card: Heart regular rate and rhythm no murmur Resp: Lungs clear to auscultation no wheeze or rhonchi Abd: Soft and nondistended. No tenderness to palpation with no rebound or guarding. Ext: No gross deformity or edema Medical Decision Making MEDICAL DECISION MAKING Number and Complexity of Problems Differential Diagnosis: [] [facility] Data External documents reviewed: N/A My EKG interpretation: Noted in chart if applicable My CT interpretation: N/A My X-ray interpretation: Noted in chart if applicable My Ultrasound interpretation: N/A Decision rules/scores evaluated: Heart Score for Major Cardiac Event History: Example factors for history - pattern of chest pain, onset, duration, relation with exercise, stress or cold, localization, concominant symptoms. reaction to sublingual nitrates, [] Highly suspicious +2 [] Moderately suspicious +1 [X] Slightly suspicious 0 EKG: [] Significant ST-Depression +2 [] Non specific repolarization disturbance +1 [X] Normal 0 Age: [] >= 65 +2 [] 45-65 + 1 [X] <45 0 Risk Factors: (HLD, HTN, DM, Cigarette Smoking, Pos Family Hx, Obesity) [] >3 risk factors or hx of atheroslerotic disease + 2 [] 1-2 risk factors + 1 [X] No risk factors known 0 Troponin: [] >= 3X normal + 2 [] 1-3X normal + 1 [X] <= Normal 0 [X] 0-3 Points 0.9 - 1.7% risk of major adverse cardiac event in 6 weeks [] 4-6 Points 12-16.6% risk of major adverse cardiac event in 6 weeks [] 7-10 Points 50-65% risk of major adverse cardiac event in 6 weeks [X] 0-3 Points with 2 sets of negative cardiac markers <1% risk of major adverse cardiac event in 30 days. Discussed with: N/A Treatment and Disposition ED Course: Is nontoxic-appearing no distress. EKG shows no acute injury pattern. Will obtain a cardiac workup as well as D-dimer. Dimer was elevated so she we will get a CTA of the chest to further evaluate for possible pulmonary embolism. CT is negative for acute process. Both initial and repeat 1 hour troponin are within normal limits. Her workup is overall reassuring. I discussed the results with the patient at bedside. At this time I feel she is stable for discharge with close follow-up with her primary care physician. Shared decision making: As above Code status: N/A Assessment/Plan Chest pain (R07.9: Chest pain, unspecified) Palpitations (R00.2: Palpitations) Orders: Basic Metabolic Panel CBC w/ Auto Diff CTA Chest D-Dimer ECG 12 Lead Adult ED Cardiac Monitoring eGFR Extra SST Tube Magnesium Level Oxygen Saturation Oxygen Therapy PT & PTT Saline Lock Insert Troponin 0 Hr. Troponin 1 Hr. Disposition Plan Discharge Prescription List Prescriptions No active prescription medications Follow-up With When Contact Information DIGNA HIRSCH In 3 days [address] [place] [address] Business (1) Additional Instructions: Patient Education Palpitations Nonspecific Chest Pain, Adult Problem List/Past Medical History Ongoing Cyst - pilonidal denies History of self mutilation Lumbar spine pain Obesity (BMI 30-39.9) Smoker Historical Group B streptococcus Procedure/Surgical History excision of chronic abscess right breast ( 1.0 CM),right axilla ( 1.0 CM),upper chest wall ( 1,2 cm). 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 Medications Inpatient No active inpatient medications Home Albuterol (Eqv-Proventil HFA) 90 mcg/inh inhalat (more content not included)... [facility] Comment on above: Result Comment: Elec tronically Signed By: Elieser Matamoros DO\.br\Date and Time Signed: 04/29/24 01:10 EST ED Patient Summaryon 025 ED Patient Summary ED Patient Summary [address] [address] Patient Discharge Instructions Person Information Name: ANGELA SMITH Age: 29 Years Arrival Date: 04/28/2024 21:51:53 Discharge Diagnosis: Chest pain; Palpitations Primary Care Physician: DIGNA HIRSCH CNP Provider Information Primary Provider: Elieser Matamoros DO Advanced Trench Shovel Operator:None The exam and treatment you received in the Emergency Department were for an urgent problem and are not intended as complete care. It is important that you follow up with a doctor, nurse practitioner, or physician???s junior assistant manager for ongoing care. If your symptoms become worse or you do not improve as expected and you are unable to reach your usual health care provider, you should return to the Emergency Department. We are available 24 hours a day. ANGELA SMITH has been given the following list of patient education materials, prescriptions and follow-up instructions: Follow-up Instructions: With: Address: When: DIGNA HIRSCH [address] [place] [phone] Business (1) In 3 days In the event that this physician does not participate in your insurance network, please consult with your insurance company to find a nearby participating provider. Patient Education Materials: Palpitations; Nonspecific Chest Pain, Adult A MESSAGE TO ALL PATIENTS REGARDING OPIOIDS PRESCRIPTION OPIOIDS: WHAT YOU NEED TO KNOW Prescription opioids can be used to help relieve ihpfhjgt-wt-nwetat pain and are often prescribed following a surgery or injury, or for certain health conditions. These medications can be an important part of the treatment but also come with serious risks. It is important to work with your healthcare provider to make sure you are getting the safest, most effective care. WHAT ARE THE RISKS AND SIDE EFFECTS OF OPIOID USE? Prescription opioids carry serious risks of addiction and overdose, especially with prolonged use. An opioid overdose, often marked by slowed breathing, can cause sudden . The use of prescription opioids can have a number of side effects as well, even when taken as directed: ??? Tolerance???meaning you might need to take more of the medication for the same pain relief ??? Physical dependence???meaning you have symptoms of withdrawal when a medication is stopped ??? Increased sensitivity to pain ??? Constipation ??? Nausea, vomiting, and dry mouth ??? Sleepiness and dizziness ??? Confusion ??? Depression ??? Low levels of testosterone that can result in lower sex drive, energy, and strength ??? Itching and sweating RISKS ARE GREATER WITH: ??? History of drug misuse, substance use disorder, or overdose ??? Mental health conditions (such as depression or anxiety) ??? Sleep apnea ??? Older age (65 years and older) ??? Avoid alcohol while taking prescription opioids. Also, unless specifically advised by your health care provider, medications to avoid include: ??? Benzodiazepines (such as Xanax or Valium) ??? Muscle relaxants (such as Soma or Flexeril) ??? Hypnotics (such as Ambien or Lunesta) ??? Other prescription opioids KNOW YOUR OPTIONS Talk to your health care provider about ways to manage your pain that don???t involve prescription opioids. Some of these options may actually work better and have fewer risks and side effects. Options may include: ??? Pain relievers such as acetaminophen, ibuprofen, and naproxen ??? Some medication that are also used for depression or seizures ??? Physical therapy and exercise ??? Cognitive behavioral therapy, a psychological, goal-directed approach, in which patients learn how to modify physical, behavioral, and emotional triggers of pain and stress. IF YOU ARE PRESCRIBED OPIOIDS FOR PAIN: ??? Never take opioids in greater amounts or more often than prescribed. ??? Follow up with your primary health care provider. o Work together to create a plan on how to manage your pain. o Talk about ways to help manage your pain that don???t involve prescription opioids. o Talk about any and all concerns and side effects. ??? Help prevent misuse and abuse o Never sell or share prescription opioids. o Never use another person???s prescription opioids. ??? Store prescription opioids in a secure place and out of reach of others (this may include visitors, children, friends, and family). ??? Safely dispose of unused prescription opioids: Find your community drug take-back program or your pharmacy mail-back program, or flush them down the toilet, following guidance from the Food and Drug Administration (www.fda.gov/Drugs/Re sourcesForYou). ??? Visit www.cdc.gov/drugoverd ose to learn about the risks of opioids abuse and overdose. ??? If you believe you may be struggling with addiction, tell your health care profes (more content not included)... [facility] BMPon 04-28-2024 Anion gap [Moles/Vol] 13 mmol/L Normal 6-16 [facility] Comment on above: Performed By: #### 2 [id number] #### [facility] [address] [place] [address] Calcium [Mass/Vol] 8.9 mg/dL Normal 8.9-11.1 [facility] Comment on above: Performed By: #### 2 [id number] #### [facility] [address] [place] [address] Chloride [Moles/Vol] 109 mmol/L Normal 101-111 [facility] Comment on above: Performed By: #### 2 [id number] #### [facility] [address] [place] [address] CO2 [Moles/Vol] 21 mmol/L Normal 21-31 [facility] Comment on above: Performed By: #### 2 [id number] #### [facility] [address] [place] [address] Creatinine [Mass/Vol] 0.7 mg/dL Normal 0.5-1.3 [facility] Comment on above: Performed By: #### 2 [id number] #### [facility] [address] [place] [address] Glucose [Mass/Vol] 100 mg/dL Normal 55-199 [facility] Comment on above: Performed By: #### 2 [id number] #### [facility] [address] [place] [address] Potassium [Moles/Vol] 3.5 mmol/L Normal 3.5-5.3 [facility] Comment on above: Performed By: #### 2 [id number] #### [facility] [address] [place] [address] Sodium [Moles/Vol] 139 mmol/L Normal 135-145 [facility] Comment on above: Performed By: #### 2 [id number] #### [facility] [address] [place] [address] Urea nitrogen [Mass/Vol] 10 mg/dL Normal 5-21 [facility] Comment on above: Performed By: #### 2 [id number] #### [facility] [address] [place] [address] Urea nitrogen/Creatinine [Mass ratio] 14 No Units Normal 10-20 [facility] Comment on above: Performed By: #### 2 [id number] #### [facility] [address] [place] [address] CBC w/ Auto Diffon 5 Basophils/100 WBC (Bld) 0.9 % Normal 0.0-2.0 [facility] Comment on above: Performed By: #### 2 [id number] #### [facility] [address] [place] [address] Basophils/Leukocytes Auto (Bld) [Pure # fraction] 0.1 E9/L Normal 0.0-0.2 [facility] Comment on above: Performed By: #### 2 [id number] #### [facility] [address] [place] [address] Eosinophils (Bld) [#/Vol] 0.4 E9/L Normal 0.0-0.5 [facility] Comment on above: Performed By: #### 2 [id number] #### [facility] [address] [place] [address] Eosinophils/100 WBC (Bld) 2.6 % Normal 0.0-8.0 [facility] Comment on above: Performed By: #### 2 [id number] #### [facility] [address] [place] [address] Erythrocyte distribution width (RBC) [Ratio] 16.3 % High 10.9-14.2 [facility] Comment on above: Performed By: #### 2 [id number] #### [facility] [address] [place] [address] Hematocrit (Bld) [Volume fraction] 38.9 % Normal 34.0-46.0 [facility] Comment on above: Performed By: #### 2 [id number] #### [facility] [address] [place] [address] Hemoglobin (Bld) [Mass/Vol] 12.8 g/dL Normal 12.0-16.0 [facility] Comment on above: Performed By: #### 2 [id number] #### [facility] [address] [place] [address] Lymphocytes (Bld) [#/Vol] 2.4 E9/L Normal 1.0-4.0 [facility] Comment on above: Performed By: #### 2 [id number] #### [facility] [address] [place] [address] Lymphocytes/100 WBC (Bld) 15.4 % Normal 14.0-50.0 [facility] Comment on above: Performed By: #### 2 [id number] #### [facility] [address] [place] [address] MCH (RBC) [Entitic mass] 26.2 pg Low 27.0-34.0 [facility] Comment on above: Performed By: #### 2 [id number] #### [facility] [address] [place] [address] MCHC (RBC) [Mass/Vol] 33.0 g/dL Normal 31.4-36.0 [facility] Comment on above: Performed By: #### 2 [id number] #### [facility] [address] [place] [address] MCV (RBC) [Entitic vol] 79.6 fL Low 80.0-100.0 [facility] Comment on above: Performed By: #### 2 [id number] #### [facility] [address] [place] [address] Monocytes (Bld) [#/Vol] 1.0 E9/L Normal 0.2-1.0 [facility] Comment on above: Performed By: #### 2 [id number] #### [facility] [address] [place] [address] Neutrophils (Bld) [#/Vol] 11.7 E9/L High 2.0-7.5 [facility] Comment on above: Performed By: #### 2 [id number] #### [facility] [address] [place] [address] Neutrophils/100 WBC (Bld) 74.7 % Normal 36.0-75.0 [facility] Comment on above: Performed By: #### 2 [id number] #### [facility] [address] [place] [address] Platelet 369.0 E9/L Normal 150.0-500.0 [facility] Comment on above: Performed By: #### 2 [id number] #### [facility] [address] [place] [address] Platelet mean volume (Bld) [Entitic vol] 8.4 fL Normal 6.4-10.8 [facility] Comment on above: Performed By: #### 2 605792 #### [facility] [address] [place] [address] RBC (Bld) [#/Vol] 4.9 E12/L Normal 4.3-5.9 [facility] Comment on above: Performed By: #### 2 [id number] #### [facility] [address] [place] [address] RBC size Nom (Bld) SEE MORPHOLOGY Invalid Interpretation Code [facility] Comment on above: Performed By: #### 2 [id number] #### [facility] [address] [place] [address] WBC corrected for nucl RBC Auto (Bld) [#/Vol] 15.6 E9/L High 4.0-11.0 [facility] Comment on above: Performed By: #### 2 [id number] #### [facility] [address] [place] [address] CHEMISTRYOrdered By: SYSTEM SYSTEM on 04-28-2024 Troponin HS 2.40 pg/mL Low 10.10 - 27.10 pg/mL [facility] Comment on above: Interpretive Data: T he 95% CI (Confidence Interval) PPV (Positive Predictive Value) for myocardial infarction in females is 38 pg/mL, in males 51 pg/mL. The results should be used in conjunction with clinical conditions of myocardial infarction. (Access High Sensitivity Troponin I Instructions For Use, Lev Ehrhardt, November 2017) Anion gap [Moles/Vol] 13 mmol/L Normal 6 - 16 mEq/L R emisol Chem Calcium [Mass/Vol] 8.9 mg/dL Normal 8.9 - 11. 1 mg/dL [facility] Chloride [Moles/Vol] 109 mmol/L Normal 101 - 1 11 mmol/L [facility] CO2 [Moles/Vol] 21 mmol/L Normal 21 - 31 mmol/L [facility] Creatinine [Mass/Vol] 0.7 mg/dL Normal 0.5 - 1.3 mg/dL [facility] eGFR 120 mL/min/1.73 m2 Normal >=59mL/mi n/1 .73 m2 [facility] Glucose [Mass/Vol] 100 mg/dL Normal 55 - 199 mg/dL [facility] Magnesium [Mass/Vol] 1.7 mg/dL Normal 1.3 - 2 .4 mg/dL [facility] Potassium [Moles/Vol] 3.5 mmol/L Normal 3.5 - 5.3 mmol/L [facility] Sodium [Moles/Vol] 139 mmol/L Normal 135 - 145 mmol/L [facility] Troponin HS 2.70 pg/mL Low 10.10 - 27.10 pg/mL [facility] Comment on above: Interpretive Data: Norah gomez 95% CI (Confidence Interval) PPV (Positive Predictive Value) for myocardial infarction in females is 38 pg/mL, in males 51 pg/mL. The results should be used in conjunction with clinical conditions of myocardial infarction. (Access High Sensitivity Troponin I Instructions For Use, Lev Arpita, November 2017) Urea nitrogen [Mass/Vol] 10 mg/dL Normal 5 - 21 mg/dL [facility] Urea nitrogen/Creatinine [Mass ratio] 14 mg/mg Normal 10 - 20 [facility] COAGULATIONOrdered By: Cresencio Acosta on 04-28-2024 aPTT Coag (PPP) [Time] 32.6 s Normal 25.1 - 36.5 second(s) [facility] Comment on above: Interpretive Data: P arameter 15 days - 4 weeks 1 - 5 months 6 - 11 months 1 - 5 years 6 - 10 years 11 - 17 years PTT Mean: 35.4 (27.6-45.6) Mean: 33.5 (24.8-40.7) Mean: 32.4 (25.1-40.7) Mean: 31.6 (24.0-39.2) Mean: 31.6 (26.9-38.7) Mean: 31.0 (24.6-38.4) Pediatric Reference ranges were obtained from a study by Jaron Helton et al. prepared from 1437 samples obtained at 7 different centers using the same coagulation reagent and instrumentation as [facility]. Currently there are no coagulation studies available worldwide for children to 14 days, and no normal ranges. Heparin therapeutic range (represented by Anti-Factor Xa activity of 0.2 - 0.4 U/mL) corresponds to PTT of 56.6 - 109.0 sec. Fibrin D-dimer FEU (PPP) [Mass/Vol] 709 ng/mL FEU Invalid Interpretation Code 215 - 500 ng/mL FEU [facility] Comment on above: Result Comment: Resu lts Called To Elieser Matamoros By [facility] And Read Back For Confirmation On 04/28/2024 22:48:54 EST Results Verified By Repeat Analysis Interpretive Data: T his assay is intended for use as an aid in the diagnosis of DVT or PE. These conditions cannot be excluded with certainty solely on the basis of a D-dimer concentration being within the reference range This D-Dimer assay may be used in conjunction with a non-high clinical pretest probability assessment to exclude deep-vein thrombosis(DVT). For exclusion of venous thrombosis or pulmonary embolism the analyte D-Dimer should not be used as an aid in patients with: Therapeutic dose anticoagulant therapy for >24 hours Fibrinolytic therapy within previous 7 days Trauma or surgery within previous 4 weeks Disseminated malignacies Aortic aneurysm Sepsis, severe infections, pneumonia, severe skin infections Liver cirrhosis INR Coag (PPP) [Relative time] 0.96 {INR} Invalid Interpretation Code [facility] Comment on above: Interpretive Data: I NR results are specifically intended to assess patients stabilized on long-term Anticoagulation therapy suggested INR s Less Intensive Anticoagulation 2.0 3.0 Conventional Range 3.0 4.5 PT Coag (PPP) [Time] 10.8 s Normal 9.4 - 1 2.5 second(s) [facility] Comment on above: Interpretive Data: 1 5 days - 4 weeks 1 - 5 months 6 -11 months 1 5 years 6 10 years 11 -17 years Mean: 11.2 (9.5 12.6) Mean: 11.0 (9.7 12.8) Mean: 11.0 (9.8 13.0) Mean: 11.3 (9.9 13.4) Mean: 11.7 (10.0 14.6) Mean: 11.8 (10.0 - 14.1) Pediatric Reference ranges were obtained from a study by Jaron Helton et al. prepared from 1437 samples obtained at 7 different centers using the same coagulation reagent and instrumentation as [facility]. Currently there are no coagulation studies available worldwide for children to 14 days, and no normal ranges. D-Dimeron 04-28-2024 Fibrin D-dimer FEU (PPP) [Mass/Vol] 709 [id number] Abnormal 215-500 [facility] Comment on above: Result Comment: Resu lts Called To Elieser Matamoros By [email or web address] And Read Back For Confirmation On 04/28/2024 22:48:54 EST Results Verified By Repeat Analysis This assay is intended for use as an aid in the diagnosis of DVT or PE. These conditions cannot be excluded with certainty solely on the basis of a D-dimer concentration being within the reference range This D-Dimer assay may be used in conjunction with a non-high clinical pretest probability assessment to exclude deep-vein thrombosis(DVT). For exclusion of venous thrombosis or pulmonary embolism the analyte D-Dimer should not be used as an aid in patients with: Therapeutic dose anticoagulant therapy for >24 hours Fibrinolytic therapy within previous 7 days Trauma or surgery within previous 4 weeks Disseminated malignacies Aortic aneurysm Sepsis, severe infections, pneumonia, severe skin infections Liver cirrhosis Performed By: #### 2 [id number] #### [facility] [address] [place] [address] HEMATOLOGYOrdered By: SYSTEM SYSTEM on 04-28-2024 Basophils/100 WBC (Bld) 0.9 % Normal 0.0 - 2.0 % Rem[facility] Heme Basophils/Leukocytes Auto (Bld) [Pure # fraction] 0.1 E9/L Normal 0.0 - 0.2 E9/L [facility]e Eosinophils (Bld) [#/Vol] 0.4 E9/L Normal 0.0 - 0.5 E9/L [facility]e Eosinophils/100 WBC (Bld) 2.6 % Normal 0.0 - 8.0 % Rem[facility] Heme Erythrocyte distribution width (RBC) [Ratio] 16.3 % High 10.9 - 14.2 % [facility]e Hematocrit (Bld) [Volume fraction] 38.9 % Normal 34.0 - 46.0 % [facility]e Hemoglobin (Bld) [Mass/Vol] 12.8 g/dL Normal 12.0 - 16.0 gm/dL [facility] Lymphocytes (Bld) [#/Vol] 2.4 E9/L Normal 1.0 - 4.0 E9/L [facility]e Lymphocytes/100 WBC (Bld) 15.4 % Normal 14.0 - 50.0 % [facility]e MCH (RBC) [Entitic mass] 26.2 pg Low 27.0 - 34.0 pg Remisol Heme MCHC (RBC) [Mass/Vol] 33.0 g/dL Normal 31.4 - 36.0 gm/dL [facility]e MCV (RBC) [Entitic vol] 79.6 fL Low 80.0 - 100.0 fL [facility]e Monocytes (Bld) [#/Vol] 1.0 E9/L Normal 0.2 - 1.0 E9/L [facility]e Monocytes/100 WBC (Bld) 6.4 % Normal 4.0 - 14.0 % [facility]e Neutrophils (Bld) [#/Vol] 11.7 E9/L High 2.0 - 7.5 E9/L [facility] Heme Neutrophils/100 WBC (Bld) 74.7 % Normal 36.0 - 75.0 % [facility]e Platelet 369.0 E9/L Normal 150.0 - 500.0 E9/L [facility] Heme Platelet mean volume (Bld) [Entitic vol] 8.4 fL Normal 6.4 - 10.8 fL [facility] Heme RBC (Bld) [#/Vol] 4.9 E12/L Normal 4.3 - 5.9 E12/L [facility] Heme RBC size Nom (Bld) SEE MORPHOLOGY *NA* (04/28/24 10:11 PM) Invalid Interpretation Code [facility]e WBC corrected for nucl RBC Auto (Bld) [#/Vol] 15.6 E9/L High 4.0 - 11.0 E9/L [facility] Heme Magnesiumon 04-28-2024 Magnesium [Mass/Vol] 1.7 mg/dL Normal 1.3-2.4 [facility] Comment on above: Performed By: #### 2 [id number] #### [facility] [address] [place] [address] PT & PTTon 04-28-2024 aPTT Coag (PPP) [Time] 32.6 second(s) Normal 25.1-36.5 [facility] Comment on above: Result Comment: Para meter 15 days - 4 weeks 1 - 5 months 6 - 11 months 1 - 5 years 6 - 10 years 11 - 17 years PTT Mean: 35.4 (27.6-45.6) Mean: 33.5 (24.8-40.7) Mean: 32.4 (25.1-40.7) Mean: 31.6 (24.0-39.2) Mean: 31.6 (26.9-38.7) Mean: 31.0 (24.6-38.4) Pediatric Reference ranges were obtained from a study by julius Blandon al. prepared from 1437 samples obtained at 7 different centers using the same coagulation reagent and instrumentation as [facility]. Currently there are no coagulation studies available worldwide for children to 14 days, and no normal ranges. Heparin therapeutic range (represented by Anti-Factor Xa activity of 0.2 - 0.4 U/mL) corresponds to PTT of 56.6 - 109.0 sec. Performed By: #### 1 [id number] #### [facility] [address] [place] [address] INR Coag (PPP) [Relative time] 0.96 {INR} Invalid Interpretation Code [facility] Comment on above: Result Comment: INR results are specifically intended to assess patients stabilized on long-term Anticoagulation therapy suggested INR???s ???Less Intensive Anticoagulation??? 2.0 ??? 3.0 Conventional Range 3.0 ??? 4.5 Performed By: #### 1 [id number] #### [facility] [address] [place] [address] PT Coag (PPP) [Time] 10.8 second(s) Normal 9.4-12.5 [facility] Comment on above: Result Comment: 15 d ays - 4 weeks 1 - 5 months 6 -11 months 1 ??? 5 years 6 ??? 10 years 11 -17 years Mean: 11.2 (9.5 ??? 12.6) Mean: 11.0 (9.7 ??? 12.8) Mean: 11.0 (9.8 ??? 13.0) Mean: 11.3 (9.9 ??? 13.4) Mean: 11.7 (10.0 ??? 14.6) Mean: 11.8 (10.0 - 14.1) Pediatric Reference ranges were obtained from a study by julius Blandon al. prepared from 1437 samples obtained at 7 different centers using the same coagulation reagent and instrumentation as [facility] Currently there are no coagulation studies available worldwide for children to 14 days, and no normal ranges. Performed By: #### 1 [id number] #### [facility] [address] [place] [address] Pre-Arrival Noteon Pre-Arrival Note Pre-Arrival Note Pre-Arrival Summary Name: , Current Date: 04/28/2024 21:52:40 EST Gender: Female Date of : Age: 29 Pre-Arrival Type: EMS ETA: 04/28/2024 22:13:00 EST Primary Care Physician: Presenting Problem: chest pain, tachycardia 120s, alcohol intox? Pre-Arrival User: Lj Combs RN Referring Source: Location: Date/Time: 04/28/2024 21:44:00 [facility] Emergency Department Pre-Hospital Report Form Vital Signs: hr 138, to 109, spo2 94, 126/60 Pre-Hospital Report: Treatment in Route: Response to Treatment: Misc. Issues: Normal [facility] Troponin 0 Hr.on 04-28-2024 Troponin HS 2.70 pg/mL Low 10.10-27.10 [facility] Comment on above: Result Comment: The 95% CI (Confidence Interval) PPV (Positive Predictive Value) for myocardial infarction in females is 38 pg/mL, in males 51 pg/mL. The results should be used in conjunction with clinical conditions of myocardial infarction. (Access High Sensitivity Troponin I Instructions For Use, [employer], November 2017) Performed By: #### 1 [id number] #### [facility] [address] [place] [address] Troponin 1 Hr.on 04-28-2024 Troponin HS 2.40 pg/mL Low 10.10-27.10 [facility] Comment on above: Result Comment: The 95% CI (Confidence Interval) PPV (Positive Predictive Value) for myocardial infarction in females is 38 pg/mL, in males 51 pg/mL. The results should be used in conjunction with clinical conditions of myocardial infarction. (Access High Sensitivity Troponin I Instructions For Use, [employer], November 2017) Performed By: #### 1 [id number] #### [facility] [address] [facility] [place] [address] eGFRon 04-28-2024 eGFR 120 mL/min/1.73 m2 Normal >=59 [facility] Comment on above: Performed By: #### 1 [id number] #### [facility] [address] [facility] [place] [address] No Panel Informationon 04-18 Tammie Landin LPN 04/22/2024 9:15 PM Splint Application Date/Time: 04/18/2024 2:43 PM Performed by: Tammie Landin LPN Authorized by: Idris Omer NP Consent: Consent obtained: Verbal Consent given by: Patient Procedure details: Supplies: Cotton padding, plaster and elastic bandage Attestation: Splint applied and adjusted personally by [facility] Study observation (narrative) [facility] XR HAND 3+ VIEWS RIGHTon XR HAND 3+ VIEWS RIGHT Exam: XR HAND 3+ VIEWS RIGHT Clinical History: Fall today, right hand and wrist pain Reference Exam: No comparison FINDINGS: Carpal bone alignment is anatomic; no intercarpal diastases. The metacarpals and phalanges are unremarkable. Minor swelling. No foreign body. No periarticular osseous erosion. IMPRESSION: Minor swelling in the absence of acute underlying osseous/articular pathology. Dictated on: 04/18/2024 12:56 PM This report has been electronically signed and approved by the interpreting Radiologist. Normal Not Available XR Hand - right 3 Viewson Exam: XR HAND 3+ VIEWS RIGHT Clinical History: Fall today, right hand and wrist pain Reference Exam: No comparison FINDINGS: Carpal bone alignment is anatomic; no intercarpal diastases. The metacarpals and phalanges are unremarkable. Minor swelling. No foreign body. No periarticular osseous erosion. IMPRESSION: Minor swelling in the absence of acute underlying osseous/articular pathology. Dictated on: 04/18/2024 12:56 PM This report has been electronically signed and approved by the interpreting Radiologist. IMAGING Gabe Schrader MD - 04/18/2024 Exam: XR HAND 3+ VIEWS RIGHT Clinical History: Fall today, right hand and wrist pain Reference Exam: No comparison FINDINGS: Carpal bone alignment is anatomic; no intercarpal diastases. The metacarpals and phalanges are unremarkable. Minor swelling. No foreign body. No periarticular osseous erosion. IMPRESSION: Minor swelling in the absence of acute underlying osseous/articular pathology. Dictated on: 04/18/2024 12:56 PM This report has been electronically signed and approved by the interpreting Radiologist. [facility] XR Hand - right 3 ViewsOrder ed By: Gabe Schrader on 04-18-2024 [facility] Work Phone: XR WRIST 3+ VIEWS RIGHTon XR WRIST 3+ VIEWS RIGHT Exam: XR WRIST 3 + VIEWS RIGHT Clinical History: Fall today, right hand and wrist pain Reference Exam: Hand x-rays same date FINDINGS: Minor swelling. Carpal bone alignment is anatomic; no intercarpal diastases. No fracture. No osteonecrosis. No periarticular osseous erosion. No foreign body. IMPRESSION: Minor swelling in the absence of acute underlying osseous/articular pathology. Dictated on: 04/18/2024 1:03 PM This report has been electronically signed and approved by the interpreting Radiologist. Normal Not Available XR Wrist - right 3 Viewson 1 06-19-2023 Exam: XR WRIST 3+ VIEWS RIGHT Clinical History: Fall today, right hand and wrist pain Reference Exam: Hand x-rays same date FINDINGS: Minor swelling. Carpal bone alignment is anatomic; no intercarpal diastases. No fracture. No osteonecrosis. No periarticular osseous erosion. No foreign body. IMPRESSION: Minor swelling in the absence of acute underlying osseous/articular pathology. Dictated on: 04/18/2024 1:03 PM This report has been electronically signed and approved by the interpreting Radiologist. Gabe Tavarez MD - 04/18/2024 Exam: XR WRIST 3+ VIEWS RIGHT Clinical History: Fall today, right hand and wrist pain Reference Exam: Hand x-rays same date FINDINGS: Minor swelling. Carpal bone alignment is anatomic; no intercarpal diastases. No fracture. No osteonecrosis. No periarticular osseous erosion. No foreign body. IMPRESSION: Minor swelling in the absence of acute underlying osseous/articular pathology. Dictated on: 04/18/2024 1:03 PM This report has been electronically signed and approved by the interpreting Radiologist. [facility] Family Medicine Office/Clini c Noteon 04-12-2024 Family Medicine Office/Clinic Note Family Medicine Office/Clinic Note Chief Complaint Review labs HPI Staff Pt presents today to review recent labs. No improvement with back pain. 08/01 Pt is also requesting referral to dermatology for hidradnitis. History of Present Illness Patient presents today in f/u for chronic back pain and to review her laboratory testing. She reports her back improved mildly with the medrol dose pack. She reports she still rates her pain a 4 out of 10. Explained the Xrays of her back to be normal in the thoracic spine and some mild L5 spondylolisthesis & L4 retrolisthesis. She is requesting a second oppinion for her previous dx of hidradenitis suppurativa. She reports she did see Emi Aquino dermatology at [facility] but would like a second opinion. She reports this dx causes her to have an elevated WBC level and she is aware that it was slightly elevated when her labs were drawn. Review of Systems PHQ Score Initial Depression Screen Score: 0 SCORE Constitutional: no fever, no chills, no sweats, no weakness Skin: no Jaundice, no rash, no lesions, nopetechiae Respiratory: no shortness of breath, no cough, no orthopnea, no wheezing Cardiovascular: no chest pain, no palpitations, no edema Musculoskeletal: moderate back pain, no trauma Neurologic: no headache, no dizziness, no numbness, no weakness Psychiatric: no sleeping problems, no irritability, no mood swings/depression. Additional ROS info: Except as noted in the above Review of Systems and in the History of Present Illness all other systems have been reviewed and are negative or noncontributory. Physical Exam Vitals & Measurements T: 36.9 ???C(Tympanic) HR: 96(Peripheral) RR: 18 BP: 122/74 SpO2: 97% HT: 63 in HT: 160 cm WT: 90.8 kg WT: 200.179 lb BMI: 35.47 General: alert, no acute distress Skin: warm, dry Head: no trauma, normocephalic Neck: Trachea midline, no adenopathy, no tenderness Eye: normal conjunctiva, sclera clear Cardiovascular: regular rate and rhythm, normal peripheral perfusion Respiratory: Lungs CTA, respirations non labored Back: Mild tenderness, Normal ROM, Normal alignment. Extremities: no deformity, no trauma Neurological: oriented x 4, LOC appropriate for age speech normal Psychiatric: cooperative, affect appropriate for age, normal judgement, normal psychiatric thoughts. Assessment/Plan 1. Spondylolisthesis, lumbar region (M43.16: Spondylolisthesis, lumbar region) Ordered: ibuprofen, 800 mg = 1 tab(s), Oral, TID, PRN for pain, # 90 tab(s), Refills(s) 1, Pharmacy: [facility]/pharmacy #[id number], 160, cm, 04/12/24 11:29:00 EST, Height/Length Dosing, 90.8, kg, 04/12/24 11:29:00 EST, Weight Dosing Physical Therapy Evaluation - External Facility 2. Retrolisthesis (M43.10: Spondylolisthesis, site unspecified) Ordered: ibuprofen, 800 mg = 1 tab(s), Oral, TID, PRN for pain, # 90 tab(s), Refills(s) 1, Pharmacy: [facility]/pharmacy #[id number], 160, cm, 04/12/24 11:29:00 EST, Height/Length Dosing, 90.8, kg, 04/12/24 11:29:00 EST, Weight Dosing Physical Therapy Evaluation - External Facility 3. Hidradenitis suppurativa (L73.2: Hidradenitis suppurativa) [place] [facility] [place] Ambulatory Referral 4. Smoker (F17.200: Nicotine dependence, unspecified, uncomplicated) We strongly recommend to quit tobacco use. Cigarette smoking harms nearly every organ of the body, causes many diseases, and reduces the health of smokers in general. Quitting smoking lowers your risk for smoking-related diseases and can add years to your life. We encourage you to visit www.smokefree.gov access to helpful resources including free telephone support. If you decide on prescription treatment to help you quit, we would be happy to provide these. 5. BMI 35.0-35.9,adult (Z68.35: Body mass index [BMI] 35.0-35.9, adult) The standard range for ages 18 and older is >=18.5 and < 25 kg/m2. Your BMI today was above this range, this falls in the overweight to obese category and there are medical benefits to weight loss. We can offer counselling, referral, and/or medical support in addressing this problem. Your BMI and weight management will be followed at subsequent visits. 6. Obesity (BMI 30-39.9) (E66.9: Obesity, unspecified) The standard range for ages 18 and older is >=18.5 and < 25 kg/m2. Your BMI today was above this range, this falls in the overweight to obese category and there are medical benefits to weight loss. We can offer counselling, referral, and/or medical support in addressing this problem. Your BMI and weight management will be followed at subsequent visits. Discussed laboratory results and the Xray reports with patient Follow-up With When Contact Information DIGNA HIRSCH CNP, FAM In 2 months 06/13/2024 EST [address] [place] [address] Business (1) Additional Instructions: Patient Education Spondylolisthesis Rehab Problem List/Past Medical History Ongoing Cyst - pilonidal denies History of self mutilation Lumbar spine pain Obe (more content not included)... Normal [facility] Comment on above: Result Comment: Elec tronically Signed By: DIGNA HIRSCH CNP\.br\Date and Time Signed: 04/12/24 12:04 EST Ambulatory Visit Summaryon 1 06-06-2023 Ambulatory Visit Summary Ambulatory Visit Summary ANGELA SMITH :1995 Visit Date:04/05/2024 Ambulatory Visit Instructions Your Diagnosis Back pain, chronic Encounter to establish care Smoker BMI 35.0-35.9,adult Exogenous obesity Other chronic pain Your Care Team Attending Physician - DIGNA HIRSCH CNP Primary Care Physician - LAZ FERRARI DO This Is Your Medications List albuterol (Ventolin HFA 90 mcg/inh Aerosol) ethinyl estradiol-norethindro ne (Aurovela Fe 1/20 oral tablet) methylPREDNISolone (Medrol 4 mg Tab) spironolactone (spironolactone 50 mg Tab) Procedures Performed excision of chronic abscess right breast ( 1.0 CM),right axilla ( 1.0 CM),upper chest wall ( 1,2 cm). 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 Discharge Vitals Temperature (Temporal Artery) 36.8 ???C Heart Rate (Peripheral) 110 Respiratory Rate 18 Blood Pressure 124/84 Height 160.0 cm Height 63 in Weight 91.1 kg Weight 200.841 lb BMI 35.59 What to do next Scheduled Follow-Up Appointments Monday 10:20 AM EST With: DIGNA HIRSCH CNP Where: [address] [address]- You Need to Schedule the Following Appointments Follow Up with DIGNA HIRSCH CNP, FAM When: Within 5 to 7 days Comments: Back pain Where: [address] [place] [address] [phone] Business (1) You Need to Complete the Following XR Spine Lumbosacral Minimum 4 Views, 04/05/24, Routine, Order for future visit, Transport Mode: Wheelchair, Reason: Back pain, No, Back pain, chronic, pp_set_radiology_subs pecialty, [place] [facility] [place] XR Spine Thoracic 3 Views, 04/05/24, Routine, Order for future visit, Transport Mode: Wheelchair, Reason: Back pain, No, Back pain, chronic, pp_set_radiology_subs pecialty, [place] [facility] [place] Medications What How Much When Why Instructions New methylPREDNISolone (Medrol 4 mg Tab) 1 Packets By Mouth As Directed Back pain, chronic Duration: 6 Days as directed on package labeling Pickup at [facility]/pharmacy #[id number] Unchanged albuterol (Ventolin HFA 90 mcg/ inh Aerosol) 2 Puffs Inhalation Once as needed for for wheezing Unchanged ethinyl estradiol-norethindro ne (Aurovela Fe 1/ 20 oral tablet) 1 Tablets Unchanged spironolactone (spironolactone 50 mg Tab) 1 Tablets Pharmacy Information [facility]/pharmacy #[id number]: [address] [place], [place] [phone] Allergies Morphine Sulfate (throat swelling) penicillins (swelling, blood in urination) Problems Ongoing - Any problem that you are currently receiving treatment for. Cyst - pilonidal denies History of self mutilation Smoker Historical - Any problem that you are no longer receiving treatment for. Group B streptococcus Patient Survey You may receive a survey via text or e-mail asking about your office visit. Please share your experience with us by completing your survey. We appreciate your feedback and thank you for choosing us for your care. Education Materials Chronic Back Pain Chronic back pain is back pain that lasts longer than 3 months. The pain may get worse at certain times (flare-ups). There are things you can do at home to manage your pain. Follow these instructions at home: Watch for any changes in your symptoms. Take these actions to help with your pain: Managing pain and stiffness ??? If told, put ice on the painful area. You may be told to use ice for 24???48 hours after a flare-up starts. ? Put ice in a plastic bag. ? Place a towel between your skin and the bag. ? Leave the ice on for 20 minutes, 2???3 times a day. ??? If told, put heat on the painful area. Do this as often as told by your doctor. Use the heat source that your doctor recommends, such as a moist heat pack or a heating pad. ? Place a towel between your skin and the heat source. ? Leave the heat on for 20???30 minutes. ??? If your skin turns bright red, take off the ice or heat right away to prevent skin damage. The risk of damage is higher if you cannot feel pain, heat, or cold. ??? Soak in a warm bath. This can help with pain. Activity ??? Avoid bending and other activities that make the pain worse. ??? When you stand: ? Keep your upper back and neck straight. ? Keep your shoulders pulled back. ? Avoid slouching. ??? When you sit: ? Keep your back straight. ? Relax your shoulders. Do not round your shoulders or pull them backward. ??? Do not sit or fitting room attendant one place for too long. ??? Take short rest sandro (more content not included)... Normal [facility] CBC w/ Auto Diffon 4 Basophils/100 WBC (Bld) 1.5 % Normal 0.0-2.0 [facility] Comment on above: Performed By: #### 2 [id number] #### [facility] [address] [place] [address] Basophils/Leukocytes Auto (Bld) [Pure # fraction] 0.2 E9/L Normal 0.0-0.2 [facility] Comment on above: Performed By: #### 2 [id number] #### [facility] [address] [place] [address] Eosinophils (Bld) [#/Vol] 0.3 E9/L Normal 0.0-0.5 [facility] Comment on above: Performed By: #### 2 [id number] #### [facility] [address] [place] [address] Eosinophils/100 WBC (Bld) 2.0 % Normal 0.0-8.0 [facility] Comment on above: Performed By: #### 2 [id number] #### [facility] [address] [place] [address] Erythrocyte distribution width (RBC) [Ratio] 15.6 % High 10.9-14.2 [facility] Comment on above: Performed By: #### 2 [id number] #### [facility] [address] [place] [address] Hematocrit (Bld) [Volume fraction] 40.4 % Normal 34.0-46.0 [facility] Comment on above: Performed By: #### 2 [id number] #### [facility] [address] [place] [address] Hemoglobin (Bld) [Mass/Vol] 13.3 g/dL Normal 12.0-16.0 [facility] Comment on above: Performed By: #### 2 [id number] #### [facility] [address] [place] [address] Lymphocytes (Bld) [#/Vol] 2.8 E9/L Normal 1.0-4.0 [facility] Comment on above: Performed By: #### 2 [id number] #### [facility] [address] [place] [address] Lymphocytes/100 WBC (Bld) 20.1 % Normal 14.0-50.0 [facility] Comment on above: Performed By: #### 2 [id number] #### [facility] [address] [place] [address] MCH (RBC) [Entitic mass] 26.5 pg Low 27.0-34.0 [facility] Comment on above: Performed By: #### 2 [id number] #### [facility] [address] [place] [address] MCHC (RBC) [Mass/Vol] 33.0 g/dL Normal 31.4-36.0 [facility] Comment on above: Performed By: #### 2 [id number] #### [facility] [address] [place] [address] MCV (RBC) [Entitic vol] 80.2 fL Normal 80.0-100.0 [facility] Comment on above: Performed By: #### 2 [id number] #### [facility] [address] [place] [address] Monocytes (Bld) [#/Vol] 0.8 E9/L Normal 0.2-1.0 [facility] Comment on above: Performed By: #### 2 [id number] #### [facility] [address] [place] [address] Neutrophils (Bld) [#/Vol] 9.9 E9/L High 2.0-7.5 [facility] Comment on above: Performed By: #### 2 [id number] #### [facility] [address] [place] [address] Neutrophils/100 WBC (Bld) 70.7 % Normal 36.0-75.0 [facility] Comment on above: Performed By: #### 2 [id number] #### [facility] [address] [place] [address] Platelet 466.0 E9/L Normal 150.0-500.0 [facility] Comment on above: Performed By: #### 2 [id number] #### [facility] [address] [place] [address] Platelet mean volume (Bld) [Entitic vol] 9.2 fL Normal 6.4-10.8 [facility] Comment on above: Performed By: #### 2 [id number] #### [facility] [address] [place] [address] RBC (Bld) [#/Vol] 5.0 E12/L Normal 4.3-5.9 [facility] Comment on above: Performed By: #### 2 [id number] #### [facility] [address] [place] [address] WBC corrected for nucl RBC Auto (Bld) [#/Vol] 13.9 E9/L High 4.0-11.0 [facility] Comment on above: Performed By: #### 2 [id number] #### [facility] [address] [place] [address] CHEMISTRYOrdered By: SYSTEM SYSTEM on 04-05-2024 Albumin [Mass/Vol] 4.1 g/dL Normal 3.3 - 5.0 gm/dL [facility] Albumin/Globulin [Mass ratio] 1.3 {ratio} Normal 1.1 - 2.2 [facility] ALP [Catalytic activity/Vol] 111 [iU]/d High 21 - 98 Int._Unit/L [facility] ALT No additional P-5'-P [Catalytic activity/Vol] 19 [iU]/d Normal 6 - 46 Int._Unit/L [facility] Anion gap [Moles/Vol] 10 mmol/L Normal 6 - 16 mEq/L R em[facility] AST [Catalytic activity/Vol] 16 [iU]/d Normal 5 - 43 Int._Unit/L [facility] Bilirubin [Mass/Vol] 0.3 mg/dL Normal 0.0 - 1 .1 mg/dL [facility] Calcium [Mass/Vol] 9.0 mg/dL Normal 8.9 - 11. 1 mg/dL [facility] Chloride [Moles/Vol] 108 mmol/L Normal 101 - 1 11 mmol/L [facility] Cholesterol [Mass/Vol] 145 mg/dL Normal 120 - 200 mg/dL [facility] Cholesterol in HDL [Mass/Vol] 38 mg/dL Invalid Interpretation Code [facility] Comment on above: Result Comment: '>= 60 LOW RISK' '<= 40 HIGH RISK' Cholesterol in LDL [Mass/Vol] 98 mg/dL Normal <=129mg/dL [facility] Cholesterol in VLDL [Mass/Vol] 17 mg/dL Normal 7 - 40 mg/dL [facility] CO2 [Moles/Vol] 25 mmol/L Normal 21 - 31 mmol/L [facility] Creatinine [Mass/Vol] 0.7 mg/dL Normal 0.5 - 1.3 mg/dL [facility] eGFR 120 mL/min/1.73 m2 Normal >=59mL/mi n/1 .73 m2 [facility] Globulin (S) [Mass/Vol] 3.2 g/dL Normal 1.4 - 4.0 gm/dL [facility] Glucose [Mass/Vol] 91 mg/dL Normal 55 - 199 mg/dL [facility] Potassium [Moles/Vol] 4.0 mmol/L Normal 3.5 - 5.3 mmol/L [facility] Protein [Mass/Vol] 7.3 g/dL Normal 6.0 - 7.8 gm/dL [facility] Sodium [Moles/Vol] 139 mmol/L Normal 135 - 145 mmol/L [facility] Triglyceride [Mass/Vol] 83 mg/dL Normal <=149mg/dL R [facility] TSH Qn 1.64 m[IU]/L Normal 0.34 - 5.60 mcIU/mL [facility] Urea nitrogen [Mass/Vol] 9 mg/dL Normal 5 - 21 mg/dL [facility] Urea nitrogen/Creatinine [Mass ratio] 13 mg/mg Normal 10 - 20 [facility] CMPon 04-05-2024 Albumin [Mass/Vol] 4.1 g/dL Normal 3.3-5.0 [facility] Comment on above: Performed By: #### 2 [id number] #### [facility] [address] [place] [address] Albumin/Globulin (S) [Mass conc ratio] 1.3 Normal 1.1-2.2 [facility] Comment on above: Performed By: #### 2 [id number] #### [facility] [address] [place] [address] ALP [Catalytic activity/Vol] 111 Int._Unit/L High 21-98 [facility] Comment on above: Performed By: #### 2 [id number] #### [facility] [address] [place] [address] ALT No additional P-5'-P [Catalytic activity/Vol] 19 Int._Unit/L Normal 6-46 [facility] Comment on above: Performed By: #### 2 [id number] #### [facility] [address] [place] [address] Anion gap [Moles/Vol] 10 mmol/L Normal 6-16 [facility] Comment on above: Performed By: #### 2 [id number] #### [facility] [address] [place] [address] AST [Catalytic activity/Vol] 16 Int._Unit/L Normal 5-43 [facility] Comment on above: Performed By: #### 2 [id number] #### [facility] [address] [place] [address] Bilirubin [Mass/Vol] 0.3 mg/dL Normal 0.0-1.1 [facility] Comment on above: Performed By: #### 2 [id number] #### [facility] [address] [place] [address] Calcium [Mass/Vol] 9.0 mg/dL Normal 8.9-11.1 [facility] Comment on above: Performed By: #### 2 [id number] #### [facility] [address] [place] [address] Chloride [Moles/Vol] 108 mmol/L Normal 101-111 [facility] Comment on above: Performed By: #### 2 [id number] #### [facility] [address] [place] [address] CO2 [Moles/Vol] 25 mmol/L Normal 21-31 [facility] Comment on above: Performed By: #### 2 [id number] #### [facility] [address] [place] [address] Creatinine [Mass/Vol] 0.7 mg/dL Normal 0.5-1.3 [facility] Comment on above: Performed By: #### 2 [id number] #### [facility] [address] [place] [address] Globulin (S) [Mass/Vol] 3.2 g/dL Normal 1.4-4.0 [facility] Comment on above: Performed By: #### 2 [id number] #### [facility] [address] [place] [address] Glucose [Mass/Vol] 91 mg/dL Normal 55-199 [facility] Comment on above: Performed By: #### 2 768701 #### [facility] [address] [place] [address] Potassium [Moles/Vol] 4.0 mmol/L Normal 3.5-5.3 [facility] Comment on above: Performed By: #### 2 [id number] #### [facility] [address] [place] [address] Protein [Mass/Vol] 7.3 g/dL Normal 6.0-7.8 [facility] Comment on above: Performed By: #### 2 [id number] #### [facility] [address] [place] [address] Sodium [Moles/Vol] 139 mmol/L Normal 135-145 [facility] Comment on above: Performed By: #### 2 [id number] #### [facility] [address] [place] [address] Urea nitrogen [Mass/Vol] 9 mg/dL Normal 5-21 [facility] Comment on above: Performed By: #### 2 [id number] #### [facility] [address] [place] [address] Urea nitrogen/Creatinine [Mass ratio] 13 No Units Normal 10-20 [facility] Comment on above: Performed By: #### 2 [id number] #### [facility] [address] [place] [address] Family Medicine Office/Clini c Noteon 04-05-2024 Family Medicine Office/Clinic Note Family Medicine Office/Clinic Note HPI Staff Harrington is a 29 year old female presenting to establish care Establish Care: History: Any previous diagnosis: asthma History of seeing any specialist: derm, When was your last doctors visit: a long time ago Last provider: Zachariah Any recent labs: none Health Maintenance UTD: Colonoscopy: NA Mammogram: April 2022 Pelvic/Pap: December 2023 Acute: back pain Current issues/complaints: back pain When she was 9.... 20 years ago Getting worse she said she can barely walk History of Present Illness 29 year old patient presents today to establish care and to be evaluated for back pain. Reports she has had back pain since she was 9 years old. She states she was told at 9 that it was growing pains. And then when she was a teenager she was told her back hurt because of her breast development. She reports her back hurt when she was with her now 8-year-old. Today she reports the pain is a 7 out of 10 in her back. She reports she is unable to stand most days. She has been using ezwe-wfb-necoglp ibuprofen 200 mg 5 tablets every 4 hours. Review of Systems PHQ Score Initial Depression Screen Score: 0 SCORE Constitutional: no fever, no chills, no sweats, no weakness Skin: no Jaundice, no rash, no lesions, nopetechiae ENMT: no ear pain, no sore throat, no congestion, no hoarseness Respiratory: no shortness of breath, no cough, no orthopnea, no wheezing Cardiovascular: no chest pain, no palpitations, no edema Gastrointestinal: no nausea, no vomiting, no diarrhea, no GI bleeding Genitourinary: no dysuria, no hematuria, no discharge, no pain Musculoskeletal: severe back pain, no trauma Neurologic: no headache, no dizziness, no numbness, no weakness Psychiatric: no sleeping problems, no irritability, no mood swings/depression. Heme/Lymph: no bleeding tendency, no bruising tendency, no petechiae, no swollen nodes Allergy/Immunologic: no seasonal allergies, no food allergies, no recurrent infections, no impaired immunity Additional ROS info: Except as noted in the above Review of Systems and in the History of Present Illness all other systems have been reviewed and are negative or noncontributory. Physical Exam Vitals & Measurements T: 36.8 ???C(Temporal Artery) HR: 110(Peripheral) RR: 18 BP: 124/84 SpO2: 99% HT: 63 in HT: 160.0 cm WT: 91.1 kg WT: 200.841 lb BMI: 35.59 General: alert, no acute distress Skin: warm, dry Head: no trauma, normocephalic Neck: Trachea midline, no adenopathy, no tenderness Eye: normal conjunctiva, sclera clear ENMT: TM's clear, oral mucosa moist, no pharyngeal erythema or exudate Cardiovascular: regular rate and rhythm, normal peripheral perfusion Respiratory: Lungs CTA, respirations non labored Chest wall: no deformity. Gastrointestinal: soft, non distended, no tenderness, no guarding. Back: Severe tenderness, Abnormal ROM, Normal alignment. Extremities: no deformity, no trauma Neurological: oriented x 4, LOC appropriate for age, CN II-XII intact, motor strength equal & normal bilaterally, sensation equal & normal bilaterally, speech normal Psychiatric: cooperative, affect appropriate for age, normal judgement, normal psychiatric thoughts. Assessment/Plan 1. Back pain, chronic (M54.9: Dorsalgia, unspecified) Instructed to discontinue the OTC ibuprofen Awaiting Xray results to determine the next steps Ordered: methylPREDNISolone, = 1 packet(s), Oral, As Directed, as directed on package labeling, X 6 day(s), # 21 tab(s), Refills(s) 0, Pharmacy: [facility]/pharmacy #[id number], 160, cm, 04/05/24 10:48:00 EST, Height/Length Dosing, 91.1, kg, 04/05/24 10:48:00 EST, Weight Dosing XR Spine Lumbosacral Minimum 4 Views XR Spine Thoracic 3 Views 2. Encounter to establish care (Z76.89: Persons encountering health services in other specified circumstances) Ordered: CBC w/ Auto Diff Comprehensive Metabolic Panel Lipid Panel TSH With T4fr Reflex 3. Smoker (F17.200: Nicotine dependence, unspecified, uncomplicated) We strongly recommend to quit tobacco use. Cigarette smoking harms nearly every organ of the body, causes many diseases, and reduces the health of smokers in general. Quitting smoking lowers your risk for smoking-related diseases and can add years to your life. We encourage you to visit www.smokefree.gov access to helpful resources including free telephone support. If you decide on prescription treatment to help you quit, we would be happy to provide these. 4. BMI 35.0-35.9,adult (Z68.35: Body mass index [BMI] 35.0-35.9, adult) The standard range for ages 18 and older is >=18.5 and < 25 kg/m2. Your BMI today was above this range, this falls in the overweight to obese category and there are medical benefits to weight loss. We can offer counselling, referral, and/or medical support in addressing this problem. Your BMI and weight management will be followed at subsequent visits. 5. 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 Normal [facility] Comment on above: Result Comment: Elec tronically Signed By: DIGNA HIRSCH CNP\.br\Date and Time Signed: 04/05/24 11:19 EST HEMATOLOGYOrdered By: SYSTEM SYSTEM on 04-05-2024 Basophils/100 WBC (Bld) 1.5 % Normal 0.0 - 2.0 % Remisol Heme Basophils/Leukocytes Auto (Bld) [Pure # fraction] 0.2 E9/L Normal 0.0 - 0.2 E9/L Remisol Heme Eosinophils (Bld) [#/Vol] 0.3 E9/L Normal 0.0 - 0.5 E9/L Remisol Heme Eosinophils/100 WBC (Bld) 2.0 % Normal 0.0 - 8.0 % Remisol Heme Erythrocyte distribution width (RBC) [Ratio] 15.6 % High 10.9 - 14.2 % Remisol Heme Hematocrit (Bld) [Volume fraction] 40.4 % Normal 34.0 - 46.0 % Remisol Heme Hemoglobin (Bld) [Mass/Vol] 13.3 g/dL Normal 12.0 - 16.0 gm/dL Remisol Heme Lymphocytes (Bld) [#/Vol] 2.8 E9/L Normal 1.0 - 4.0 E9/L Remisol Heme Lymphocytes/100 WBC (Bld) 20.1 % Normal 14.0 - 50.0 % Remisol Heme MCH (RBC) [Entitic mass] 26.5 pg Low 27.0 - 34.0 pg Remisol Heme MCHC (RBC) [Mass/Vol] 33.0 g/dL Normal 31.4 - 36.0 gm/dL Remisol Heme MCV (RBC) [Entitic vol] 80.2 fL Normal 80.0 - 100.0 fL Remisol Heme Monocytes (Bld) [#/Vol] 0.8 E9/L Normal 0.2 - 1.0 E9/L Remisol Heme Monocytes/100 WBC (Bld) 5.7 % Normal 4.0 - 14.0 % Remisol Heme Neutrophils (Bld) [#/Vol] 9.9 E9/L High 2.0 - 7.5 E9/L Remisol Heme Neutrophils/100 WBC (Bld) 70.7 % Normal 36.0 - 75.0 % Remisol Heme Platelet 466.0 E9/L Normal 150.0 - 500.0 E9/L Remisol Heme Platelet mean volume (Bld) [Entitic vol] 9.2 fL Normal 6.4 - 10.8 fL Remisol Heme RBC (Bld) [#/Vol] 5.0 E12/L Normal 4.3 - 5.9 E12/L Remisol Heme WBC corrected for nucl RBC Auto (Bld) [#/Vol] 13.9 E9/L High 4.0 - 11.0 E9/L Remisol Heme Lipid Panelon 04-05-2024 Cholesterol [Mass/Vol] 145 mg/dL Normal 120-200 [facility] Comment on above: Performed By: #### 2 [id number] #### [facility] [address] [place] [address] Cholesterol in HDL [Mass/Vol] 38 mg/dL Invalid Interpretation Code [facility] Comment on above: Result Comment: '>= 60 LOW RISK' '<= 40 HIGH RISK' Performed By: #### 2 [id number] #### [facility] [address] [place] [address] Cholesterol in LDL [Mass/Vol] 98 mg/dL Normal <=129 [facility] Comment on above: Performed By: #### 2 [id number] #### [facility] [address] [place] [address] Cholesterol in VLDL [Mass/Vol] 17 mg/dL Normal 7-40 [facility] Comment on above: Performed By: #### 2 [id number] #### [facility] [address] [place] [address] Triglyceride [Mass/Vol] 83 mg/dL Normal <=149 [facility] Comment on above: Performed By: #### 2 [id number] #### [facility] [address] [place] [address] TSH With T4fr Reflexon 04-05 TSH Qn 1.64 m[IU]/L Normal 0.34-5.60 [facility] Comment on above: Performed By: #### 1 [id number] #### [facility] [address] [place] [address] XR Spine Lumbosacral Minimum 4 Viewson 04-05-2024 XR Spine Lumbosacral Minimum 4 Views Exam Date/Time: 04/05/2024 12:17 EST Reason for Exam: M54.9;Back pain Report IMPRESSION: Grade 1 L5 spondylolisthesis with L4 retrolisthesis as discussed. CLINICAL HISTORY: Back pain, M54.9 COMPARISON: NONE FINDINGS: 6 views of the lumbosacral spine. Lumbar vertebral bodies normal in height. 6 mm anterolisthesis, L5 on S1. 3 mm retrolisthesis L4 on L5. No bone lesions identified. Ordering Provider: DIGNA HIRSCH FINAL REPORT Dictated: 04/05/2024 2:52 pm Matias Friedman MD Signed (Electronic Signature): 04/05/2024 2:52 pm Signed by: Matias Friedman MD Transcribed by: MATTHEW Technologist: IRAM Technical Comments Radiation Dose: Ka,r in mGy = na DAP = na Normal [facility] XR Spine Thoracic 3 Viewson 04-05-2024 XR Spine Thoracic 3 Views Exam Date/Time: 04/05/2024 12:17 EST Reason for Exam: M54.9;Back pain Report IMPRESSION: NEGATIVE THORACIC SPINE CLINICAL INFORMATION: Back pain, M54.9 COMPARISON: NONE. FINDINGS: 3 views. Thoracic vertebral bodies normal in height and alignment. No fracture, dislocation, bone lesion. Ordering Provider: DIGNA HIRSCH FINAL REPORT Dictated: 04/05/2024 2:52 pm Matias Friedman MD Signed (Electronic Signature): 04/05/2024 2:52 pm Signed by: Matias Friedman MD Transcribed by: MATTHEW Technologist: IRAM Technical Comments Radiation Dose: Ka,r in mGy = na DAP = na Normal [facility] eGFRon 04-05-2024 eGFR 120 mL/min/1.73 m2 Normal >=59 [facility] Comment on above: Performed By: #### 1 [id number] #### [facility] [address] [place] [address] Family Medicine Office/Clini c Noteon 03-08-2024 Family Medicine Office/Clinic Note Family Medicine Office/Clinic Note Chief Complaint cough, sob, fatigue HPI Staff 29 year old female presents with cough, sob, fatigue, dizziness, nausea onset 5 days ago OTC- Mucinex, zyrthomycin History of Present Illness I have reviewed and verified the staff HPI to be accurate for this encounter. Portions of this record have been created with voice recognition software. Occasional wrong-word or ???ynkry-f-kguc??? substitutions may have occurred due to the inherent limitations of voice recognition software. 29-year-old female with history of asthma presents to convenient care today with chief complaint of cough shortness of breath fatigue and nausea. Patient states that she has 2 kids at home sick with bronchitis that have been treated. Patient states she had an old Z-Carlos at home and is unsure if it was or not has taken 3 days worth of that medication without improvement. She has noticed wheezing. Cough is occasionally productive of phlegm or mucus. States she only feels dizzy or lightheaded if she coughs or has a coughing fit and then has to catch her breath afterwards. She denies any known fever chills. States some bodyaches denies headache. States old bit of a runny stuffy nose but denies ear pain or sore throat. States cough is her main complaint states it wakes her at night. Has been taking eicp-aez-muiarrv Mucinex with some relief of the congestion and postnasal drip. Patient states she is supposed to Thanksgiving this weekend but states she plans to cancel so that she can get better. She denies any chest pain or difficulty breathing. Denies any known COVID-19 or influenza exposure. She has no other concerns at this time. Review of Systems PHQ Score Initial Depression Screen Score: 0 SCORE ROS negative unless otherwise stated in HPI. Physical Exam Vitals & Measurements T: 36.8 ???C(Oral) HR: 88(Peripheral) BP: 122/88 SpO2: 97% HT: 63 in HT: 160 cm WT: 90.4 kg WT: 199.298 lb BMI: 35.31 General: Pleasant obese female, no acute distress Eyes: Bilateral conjunctiva within normal limits no injection Ears: Bilateral TMs are within normal limits no erythema or bulging. Bilateral external auditory canals are within normal limits no erythema or edema Nose: mild nasal mucosa inflammation and edema no active drainage deformity or lesion. Mouth: Moist mucous membranes. Uvula is midline. No acute tonsillar erythema edema or exudate. No signs of peritonsillar abscess. No trismus or drooling. Neck: no adenopathy Lungs: Patient has expiratory wheezing throughout bilateral lung olivares otherwise without rhonchi or crackles on exam. Symmetrical expansion. No signs of respiratory distress. Cardio: S1, S2, regular rhythm. No murmurs gallops or rubs. Abdomen: not assessed Musculoskeletal: not assessed Extremity: not assessed Neurologic: not assessed Skin: not assessed Mental Status: Alert and oriented x3. Normal mood and affect Assessment/Plan Patient was offered rapid COVID-19 and influenza testing in office however declines. Given expiratory wheezing on physical exam I did offer to the patient nebulizer treatment in office however declines at this time. Request refill of her albuterol inhaler. States she does not have a nebulizer machine at home. Discussed in regards to patient treating patient for acute bronchitis with doxycycline twice daily x 7 days duration, prednisone 40 mg daily x 5 days, refill of albuterol inhaler in addition to Tessalon Perles, cough suppressant 1 tablet every 8 hours as needed for cough over the next 7 days which patient agrees and understands plan. She will follow closely with primary care provider return if needed. ER for reevaluation if develops any chest pain shortness of breath or difficulty breathing. Patient agrees and understands plan of care. 1. Acute bronchitis (J20.9: Acute bronchitis, unspecified) See above. BMI 35.0-35.9,adult (Z68.35: Body mass index [BMI] 35.0-35.9, adult) Ordered: Body Mass Index (BMI) documented 3008F Current tobacco non-user 1036F Depression Screening Negative 3352F Influenza immunization status assessed 1030F Orders: albuterol, 2 puff(s), Inhalation, q4hr for wheezing or SOB for 7 day(s), 1 EA, Refill(s) 0, [facility]/pharmacy #[id number], 160, cm, 03/07/24 18:13:00 EST, Height/Length Dosing, 90.4, kg, 03/07/24 18:13:00 EST, Weight Dosing benzonatate, 100 mg = 1 cap(s), Oral, TID, X 7 day(s), # 21 cap(s), Refills(s) 0, [id number], 160, cm, 03/07/24 18:13:00 EST, Height/Length Dosing, 90.4, kg, 03/07/24 18:13:00 EST, Weight Dosing doxycycline, 100 mg = 1 cap(s), Oral, BID, X 7 day(s), # 14 cap(s), Refills(s) 0, Pharmacy: [facility]/pharmacy #[id number], 160, cm, 03/07/24 18:13:00 EST, Height/Length Dosing, 90.4, kg, 03/07/24 18:13:00 EST, Weight Dosing predniSONE, 40 mg = 2 tab(s), Oral, Daily, X 5 day(s), # 10 tab(s), Refills(s) 0, Pharmacy: [facility]/pharmacy #[id number], 160, cm, 03/07/24 18:13:00 EST, Height/Length Dosing, 90.4, kg, 03/07/24 18:13:00 EST, Weight Dosin (more content not included)... Normal [facility] Comment on above: Result Comment: Elec tronically Signed By: Vishnu LUNDY, Hayden Romo\.br\Date and Time Signed: 03/08/24 12:21 EST Ambulatory Visit Summaryon 05-07-2023 Ambulatory Visit Summary Ambulatory Visit Summary ANGELA SMITH :1995 Visit Date:03/07/2024 Ambulatory Visit Instructions Your Diagnosis BMI 35.0-35.9,adult Your Care Team Attending Physician - Vishnu LUNDY, Hayden Romo Primary Care Physician - LAZ FERRARI DO This Is Your Medications List albuterol (Ventolin HFA 90 mcg/inh Aerosol) ethinyl estradiol-norethindro ne (Aurovela Fe /20 oral tablet) predniSONE (predniSONE 20 mg Tab) primidone (primidone 50 mg oral tablet) spironolactone (spironolactone 50 mg Tab) Procedures Performed excision of chronic abscess right breast ( 1.0 CM),right axilla ( 1.0 CM),upper chest wall ( 1,2 cm). 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 Discharge Vitals Temperature (Oral) 36.8 ???C Heart Rate (Peripheral) 88 Blood Pressure 122/88 Height 160 cm Height 63 in Weight 90.4 kg Weight 199.298 lb BMI 35.31 Medications What How Much When Instructions Unchanged albuterol (Ventolin HFA 90 mcg/ inh Aerosol) 2 Puffs Inhalation Once as needed for for wheezing Unchanged ethinyl estradiol-norethindro ne (Aurovela Fe 1/ 20 oral tablet) 1 Tablets Unchanged predniSONE (predniSONE 20 mg Tab) 1 Tablets By Mouth As Directed Take three tabs by mouth for three days, then two tabs for three days, then one tab for three days Unchanged primidone (primidone 50 mg oral tablet) Take 1 tablet daily to 3 times daily Unchanged spironolactone (spironolactone 50 mg Tab) 1 Tablets Medications and Immunizations Administered Not Given influenza virus vaccine, inactivated, Patient Refuses Allergies Morphine Sulfate (throat swelling) penicillins (swelling, blood in urination) Problems Ongoing - Any problem that you are currently receiving treatment for. Cyst - pilonidal denies History of self mutilation Smoker Historical - Any problem that you are no longer receiving treatment for. Group B streptococcus Patient Survey You may receive a survey via text or e-mail asking about your office visit. Please share your experience with us by completing your survey. We appreciate your feedback and thank you for choosing us for your care. Normal [facility] Insertion/Removal of Contrac eptive Capsuleon 2024 Eryn Okeefe DO 2024 9:52 AM Insertion/Removal of Contraceptive Capsule Date/Time: 2024 9:22 AM Performed by: Eryn Okeefe DO Authorized by: Eryn Okeefe DO Consent: Consent obtained: Verbal Consent given by: Patient Procedural risks discussed: Bleeding and infection Patient agrees, verbalizes understanding, and wants to proceed: yes Indication: Indication: Presence of non-biodegradable drug delivery implant Pre-procedure: Prepped with: povidone-iodine Local anesthetic: Lidocaine with epinephrine Procedure: Procedure: Removal Left/right: Left Site was closed with steri-strips and pressure bandage applied: yes [facility] HCG ( test) Ql (U)o n 02-15-2024 Interpretation and review of laboratory results Normal [facility] Preg Test, Ur Negative [facility] Insertion/Removal of Contrac eptive Capsuleon 02-15-2024 Eryn Okeefe DO 02/15/2024 1:35 PM Insertion/Removal of Contraceptive Capsule Date/Time: 02/15/2024 11:12 AM Performed by: Eryn Okeefe DO Authorized by: Eryn Okeefe DO Consent: Consent obtained: Written Consent given by: Patient Procedural risks discussed: Bleeding and infection Patient questions answered: yes Patient agrees, verbalizes understanding, and wants to proceed: yes Indication: Indication: Insertion of non-biodegradable drug delivery implant Pre-procedure: Prepped with: povidone-iodine Local anesthetic: Lidocaine with epinephrine The site was cleaned and prepped in a sterile fashion: yes Procedure: Procedure: Insertion Small stab incision was made in arm: yes Left/right: Left Preloaded contraceptive capsule trocar was placed subdermally: yes Visualization of implant was obtained: yes Contraceptive capsule was inserted and trocar removed: yes Visualization of notch in stylet and palpation of device: yes Palpation confirms placement by provider and patient: yes Site was closed with steri-strips and pressure bandage applied: yes Comments: LOT: [id number] EXP: 01/2026 [facility] HCG ( test) Ql (U)o n 01-12-2024 Interpretation and review of laboratory results Normal [facility] Preg Test, Ur Negative [facility] Automated basophil %Ordered By: Eryn Okeefe on 10-11-2023 Basophils/100 WBC (Bld) 0.4 % Normal . [facility] Comment on above: Order Comment: Comme nt Draw at 630 am Performed By: #### A DDONUAPLUS OBUDS #### [address] Automated basophil countOrde red By: Eryn Okeefe on 10-11-2023 Basophils (Bld) [#/Vol] 0.1 10*3/uL Normal 0.0-0.2 [facility] Comment on above: Order Comment: Comme nt Draw at 630 am Result Comment: PERF ORMED BY: [place] [address] PATHOLOGIST LETTUCE TRIMMER DARYA CANDELARIA M.D. Performed By: #### A DDONUAPLUS OBUDS #### [address] Automated blood monocyte cou ntOrdered By: Eryn Okeefe on 10-11-2023 Monocytes (Bld) [#/Vol] 1.7 10*3/uL High 0.0-0.8 [facility] Comment on above: Order Comment: Comme nt Draw at 630 am Performed By: #### A DDONUAPLUS OBUDS #### [address] Automated eosinophil %Ordere d By: Eryn Okeefe on 10-11-2023 Eosinophils/100 WBC (Bld) 0.7 % Normal . [facility] Comment on above: Order Comment: Comme nt Draw at 630 am Performed By: #### A DDONUAPLUS OBUDS #### [address] Automated eosinophil countOr dered By: Eryn Okeefe on 10-11-2023 Eosinophils (Bld) [#/Vol] 0.1 10*3/uL Normal 0.0-0.45 [facility] Comment on above: Order Comment: Comme nt Draw at 630 am Performed By: #### A EUGENE OBUDS #### [facility] [address] [place] [address] Automated monocyte %Ordered By: Eryn Okeefe on 10-11-2023 Monocytes/100 WBC (Bld) 9.6 % Normal . [facility] Comment on above: Order Comment: Comme nt Draw at 630 am Performed By: #### A EUGENE OBUDS #### [address] Automated neutrophil %Ordere d By: Eryn Okeefe on 10-11-2023 Neutrophils/100 WBC (Bld) 68.8 % Normal . [facility] Comment on above: Order Comment: Comme nt Draw at 630 am Performed By: #### A EUGENE OBUDS #### [address] Complete Blood Count Auto Di ffon 10-11-2023 Mean Corpuscular HGB Conc 33.2 g/dL Normal 32.0-35.0 [facility] Comment on above: Order Comment: Comme nt Draw at 630 am Performed By: #### A EUGENE OBUDS #### [address] NRBC% 0.1 /100{WBC} Normal 0-0.5 [facility] Comment on above: Order Comment: Comme nt Draw at 630 am Performed By: #### A EUGENE OBUDS #### [address] Erythrocyte distribution wid th [Ratio] by Automated countOrdered By: Eryn Okeefe on 10-11-2023 Erythrocyte distribution width (RBC) [Ratio] 14.1 % Normal 11.9-15.3 [facility] Comment on above: Order Comment: Comme nt Draw at 630 am Performed By: #### A DDONUACARI, OBUDS #### [facility] [address] [place] [address] Erythrocytes [#/volume] in B lood by Automated countOrdered By: Eryn Okeefe on 10-11-2023 RBC (Bld) [#/Vol] 3.74 10*6/uL Normal 3.60-5.00 [facility] Comment on above: Order Comment: Comme nt Draw at 630 am Performed By: #### A ANTONIETAONUACARI, OBUDS #### [facility] [address] [place] [address] Hematocrit [Volume Fraction] of Blood by Automated countOrdered By: Eryn Okeefe on 10-11-2023 Hematocrit (Bld) [Volume fraction] 30.6 % Low 34.0-46.4 [facility] Comment on above: Order Comment: Comme nt Draw at 630 am Performed By: #### A EUGENE, OBUDS #### [address] Hemoglobin [Mass/volume] in BloodOrdered By: Eryn Okeefe on 10-11-2023 Hemoglobin (Bld) [Mass/Vol] 10.2 g/dL Low 11.8-15.4 [facility] Comment on above: Order Comment: Comme nt Draw at 630 am Performed By: #### A ALEXIUACARI, OBUDS #### [facility] [address] [place] [address] Leukocytes [#/volume] correc shavon for nucleated erythrocytes in Blood by Automated counOrdered By: Eryn Okeefe on 10-11-2023 WBC corrected for nucl RBC Auto (Bld) [#/Vol] 17.8 10*3/uL 3.8-11.6 [facility] Leukocytes [#/volume] in Blo od by Automated countOrdered By: Eryn Okeefe on 10-11-2023 WBC (Bld) [#/Vol] 17.8 10*3/uL High 3.8-11.6 [facility] Comment on above: Order Comment: Comme nt Draw at 630 am Performed By: #### A EUGENE OBUDS #### [place] [address] [place] Lymphocytes [#/volume] in Bl ood by Automated countOrdered By: Eryn Okeefe on 10-11-2023 Lymphocytes (Bld) [#/Vol] 3.6 10*3/uL Normal 1.00-4.8 [facility] Comment on above: Order Comment: Comme nt Draw at 630 am Performed By: #### A EUGENE OBUDS #### [place] [address] [place] Lymphocytes/100 leukocytes i n Blood by Automated countOrdered By: Eryn Okeefe on 10-11-2023 Lymphocytes/100 WBC (Bld) 20.5 % Normal . [facility] Comment on above: Order Comment: Comme nt Draw at 630 am Performed By: #### A EUGENE OBUDS #### [place] [address] [place] MCH [Entitic mass] by Automa shavon countOrdered By: Eryn Okeefe on 10-11-2023 MCH (RBC) [Entitic mass] 27.2 pg Normal 24.7-34.3 [facility] Comment on above: Order Comment: Comme nt Draw at 630 am Performed By: #### A EUGENE OBUDS #### [address] MCHC Auto (RBC) [Mass/Vol]Or dered By: Eryn Okeefe on 10-11-2023 MCHC (RBC) [Mass/Vol] 33.2 g/dL 32.0-35.0 [facility] MCV [Entitic volume] by Auto mated countOrdered By: Eryn Okeefe on 10-11-2023 MCV (RBC) [Entitic vol] 81.8 fL Normal 80-100 [facility] Comment on above: Order Comment: Comme nt Draw at 630 am Performed By: #### A ANTONIETAONUACARI, OBUDS #### [place] [address] [place] Neutrophils [#/volume] in Bl ood by Automated countOrdered By: Eryn Okeefe on 10-11-2023 Neutrophils (Bld) [#/Vol] 12.2 10*3/uL High 1.8-7.7 [facility] Comment on above: Order Comment: Comme nt Draw at 630 am Performed By: #### A EUGENE OBUDS #### [facility] [address] [place] [address] [place] Nucleated erythrocytes [Pres ence] in Blood by Automated countOrdered By: Eryn Okeefe on 10-11-2023 Nucleated RBC Auto Ql (Bld) 0.1 /100{WBC} 0-0.5 [facility] Platelet mean volume [Entiti c volume] in Blood by Automated countOrdered By: Eryn Okeefe on 10-11-2023 Platelet mean volume (Bld) [Entitic vol] 9.1 fL Normal 6.3-10.7 [facility] Comment on above: Order Comment: Comme nt Draw at 630 am Performed By: #### A EUGENE OBUDS #### [facility] [address] [place] [address] [place] Platelets [#/volume] in Bloo d by Automated countOrdered By: Eryn Okeefe on 10-11-2023 Platelets (Bld) [#/Vol] 392 10*3/uL Normal 150-450 [facility] Comment on above: Order Comment: Comme nt Draw at 630 am Performed By: #### A EUGENE OBUDS #### [facility] [address] [place] [address] [place] ABO/RH Typeon 10-10-2023 ABO and Rh group Nom (Bld) Blood group O Rh(D) positive Normal [facility] Comment on above: Result Comment: PERF ORMED BY: [place] [address] PATHOLOGIST LETTUCE TRIMMER DARYA CANDELARIA M.D. Amphetamine Screen Ql (U)Ord ered By: Eryn Okeefe on 10-10-2023 Amphetamines Ql (U) Negative Negative [facility] Bacteria [Presence] in Urine by AutomatedOrdered By: Eryn Okeefe on 10-10-2023 Bacteria Auto Ql (U) None seen [HPF] None Seen [facility] Barbiturates [Presence] in U rine by Screen methodOrdered By: Eryn Okeefe on 10-10-2023 Barbiturates Screen Ql (U) Negative Negative [facility] Benzodiazepines Screen Ql (U )Ordered By: Eryn Okeefe on 10-10-2023 Benzodiazepines Ql (U) Negative Negative Fi [facility] Benzoylecgonine [Presence] i n Urine by Screen methodOrdered By: Eryn Okeefe on 10-10-2023 Benzoylecgonine Screen Ql (U) Negative Negative [facility] Bilirubin Test strip Ql (U)O rdered By: Eryn Okeefe on 10-10-2023 Bilirubin Ql (U) Negative Negative [facility] Color of Urine by AutoOrdere d By: Eryn Okeefe on 10-10-2023 Color (U) Yellow Normal Yellow [facility] Comment on above: Order Comment: Name Collection Type:: Voided Performed By: #### A DDONUAPLUS, OBUDS #### [address] Complete Blood Count Auto Di ffon 10-10-2023 Basophils (Bld) [#/Vol] 0.0 10*3/uL Normal 0.0-0.2 [facility] Comment on above: Result Comment: PERF ORMED BY: [place] [address] PATHOLOGIST LETTUCE TRIMMER DARYA CANDELARIA M.D. Performed By: #### C BC #### [facility] [address] [place] [address] #### RPR W RFX #### [facility] , Basophils/100 WBC (Bld) 0.2 % Normal . [facility] Comment on above: Performed By: #### C BC #### [facility] [address] [place] [address] [place] #### RPR W RFX #### [facility] , Eosinophils (Bld) [#/Vol] 0.2 10*3/uL Normal 0.0-0.45 [facility] Comment on above: Performed By: #### C BC #### [place] [address] [place] #### RPR W RFX #### [facility] , Eosinophils/100 WBC (Bld) 1.2 % Normal . [facility] Comment on above: Performed By: #### C BC #### [place] [address] [place] #### RPR W RFX #### [facility] , Erythrocyte distribution width (RBC) [Ratio] 14.2 % Normal 11.9-15.3 [facility] Comment on above: Performed By: #### C BC #### [address] #### RPR W RFX #### [facility] , Hematocrit (Bld) [Volume fraction] 33.4 % Low 34.0-46.4 [facility] Comment on above: Performed By: #### C BC #### [place] [address] [place] #### RPR W RFX #### [facility] , Hemoglobin (Bld) [Mass/Vol] 11.0 g/dL Low 11.8-15.4 [facility] Comment on above: Performed By: #### C BC #### [place] [address] [place] #### RPR W RFX #### [facility] , Lymphocytes (Bld) [#/Vol] 3.5 10*3/uL Normal 1.00-4.8 [facility] Comment on above: Performed By: #### C BC #### [place] [address] [place] #### RPR W RFX #### [facility] , Lymphocytes/100 WBC (Bld) 21.2 % Normal . [facility] Comment on above: Performed By: #### C BC #### [facility] [address] [place] [address] [place] #### RPR W RFX #### [facility] , MCH (RBC) [Entitic mass] 26.9 pg Normal 24.7-34.3 [facility] Comment on above: Performed By: #### C BC #### [facility] [address] [place] [address] [place] #### RPR W RFX #### [facility] , MCV (RBC) [Entitic vol] 81.8 fL Normal 80-100 [facility] Comment on above: Performed By: #### C BC #### [address] #### RPR W RFX #### [facility] , Mean Corpuscular HGB Conc 32.9 g/dL Normal 32.0-35.0 [facility] Comment on above: Performed By: #### C BC #### [address] #### RPR W RFX #### [facility] , Monocytes (Bld) [#/Vol] 1.1 10*3/uL High 0.0-0.8 [facility] Comment on above: Performed By: #### C BC #### [facility] [address] [place] [address] [place] #### RPR W RFX #### [facility] , Monocytes/100 WBC (Bld) 6.6 % Normal . [facility] Comment on above: Performed By: #### C BC #### [facility] [address] [place] [address] [place] #### RPR W RFX #### [facility] , Neutrophils (Bld) [#/Vol] 11.8 10*3/uL High 1.8-7.7 [facility] Comment on above: Performed By: #### C BC #### [facility] [address] [place] [address] [place] #### RPR W RFX #### [facility] , Neutrophils/100 WBC (Bld) 70.8 % Normal . [facility] Comment on above: Performed By: #### C BC #### [facility] [address] [place] [address] [place] #### RPR W RFX #### [facility] , NRBC% 0.1 /100{WBC} Normal 0-0.5 [facility] Comment on above: Performed By: #### C BC #### [address] #### RPR W RFX #### [facility] , Platelet mean volume (Bld) [Entitic vol] 9.4 fL Normal 6.3-10.7 [facility] Comment on above: Performed By: #### C BC #### [address] #### RPR W RFX #### [facility] , Platelets (Bld) [#/Vol] 426 10*3/uL Normal 150-450 [facility] Comment on above: Performed By: #### C BC #### [facility] [address] [place] [address] [place] #### RPR W RFX #### [facility] , RBC (Bld) [#/Vol] 4.08 10*6/uL Normal 3.60-5.00 [facility] Comment on above: Performed By: #### C BC #### [place] [address] [place] #### RPR W RFX #### [facility] , WBC (Bld) [#/Vol] 16.7 10*3/uL High 3.8-11.6 [facility] Comment on above: Performed By: #### C BC #### [address] #### RPR W RFX #### [facility] , Dipstick and Microscopicon 0 10-10-2023 Bacteria,Urine None Seen Normal None Seen [facility] Comment on above: Order Comment: Name Collection Type:: Voided Performed By: #### A DDONUAPLUS, OBUDS #### [address] Bilirubin,Urine Negative Normal Negative [facility] Comment on above: Order Comment: Name Collection Type:: Voided Performed By: #### A DDONUAPLUS, OBUDS #### [address] Glucose Ql (U) Normal Normal Normal [facility] Comment on above: Order Comment: Name Collection Type:: Voided Performed By: #### A DDONUAPLUS, OBUDS #### [address] Hyaline Casts,Urine None Normal 0-8 [facility] Comment on above: Order Comment: Name Collection Type:: Voided Performed By: #### A DDONUAPLUS, OBUDS #### [address] Mucus,Urine 1+ Critically abnormal [facility] Comment on above: Order Comment: Name Collection Type:: Voided Result Comment: PERF ORMED BY: [place] [address] PATHOLOGIST LETTUCE TRIMMER DARYA CANDELARIA M.D. Performed By: #### A DDONUAPLUS, OBUDS #### [address] Nitrite,Urine Negative Normal Negative [facility] Comment on above: Order Comment: Name Collection Type:: Voided Performed By: #### A DDONUAPLUS, OBUDS #### [address] Occult Blood,Urine Negative Normal Negative [facility] Comment on above: Order Comment: Name Collection Type:: Voided Result Comment: PERF ORMED BY: [place] [address] PATHOLOGIST LETTUCE TRIMMER DARYA CANDELARIA M.D. Performed By: #### A DDONUAPLUS, OBUDS #### [address] Protein,Urine Trace High Negative [facility] Comment on above: Order Comment: Name Collection Type:: Voided Performed By: #### A DDONUAPLUS, OBUDS #### [address] RBC,Urine 5-9 High 0-4 [facility] Comment on above: Order Comment: Name Collection Type:: Voided Performed By: #### A DDONUAPLUS, OBUDS #### [address] Specificy Morrison,Urine 1.024 Normal 1.001-1.030 [facility] Comment on above: Order Comment: Name Collection Type:: Voided Performed By: #### A DDONUAPLUS, OBUDS #### [address] Squamous Epithelial Cell,Urine 5-9 High 0-2 [facility] Comment on above: Order Comment: Name Collection Type:: Voided Performed By: #### A DDONUAPLUS, OBUDS #### [address] Urobilinogen,Urine Normal Normal Normal [facility] Comment on above: Order Comment: Name Collection Type:: Voided Performed By: #### A DDONUAPLUS, OBUDS #### [place] [address] [place] WBC,Urine 1-2 Normal 0-4 [facility] Comment on above: Order Comment: Name Collection Type:: Voided Performed By: #### A DDONUAPLUS, OBUDS #### [place] [id number] [place] Epithelial cells.squamous [# /area] in Urine sediment by Automated countOrdered By: Eryn Okeefe on 10-10-2023 Epithelial cells.squamous Auto (Urine sed) [#/Area] 5-9 [HPF] 0-2 [facility] Erythrocytes [#/area] in Uri ne sediment by Automated countOrdered By: Eryn Okeefe on 10-10-2023 RBC Auto (Urine sed) [#/Area] 5-9 [HPF] 0-4 [facility] Glucose [Mass/volume] in Uri ne by Test stripOrdered By: Eryn Okeefe on 10-10-2023 Glucose Test strip (U) [Mass/Vol] Normal mg/dL Normal [facility] Hemoglobin Test strip Ql (U) Ordered By: Eryn Okeefe on 10-10-2023 Hemoglobin Ql (U) Negative Negative [facility] Hyaline casts [#/area] in Ur ine sediment by Automated countOrdered By: Eryn Okeefe on 10-10-2023 Hyaline casts Auto (Urine sed) [#/Area] None [LPF] 0-8 [facility] Ketones [Presence] in Urine by Test stripOrdered By: Eryn Okeefe on 10-10-2023 Ketones Ql (U) Negative Normal Negative [facility] Comment on above: Order Comment: Name Collection Type:: Voided Performed By: #### A DDONUAPLUS OBUDS #### [facility] [address] [place] [address] [place] Leukocyte esterase [Presence ] in Urine by Test stripOrdered By: Eryn Okeefe on 10-10-2023 Leukocyte esterase Test strip Ql (U) Negative Normal Negative [facility] Comment on above: Order Comment: Name Collection Type:: Voided Performed By: #### A DDONUAPLUS OBUDS #### [facility] [address] [place] [address] [place] Leukocytes [#/area] in Urine sediment by Automated countOrdered By: Eryn Okeefe on 10-10-2023 WBC Auto (Urine sed) [#/Area] 1-2 [HPF] 0-4 [facility] Mucus [Presence] in Urine by AutomatedOrdered By: Eryn Okeefe on 10-10-2023 Mucus Auto Ql (U) 1+ [LPF] [facility] Nitrite Test strip Ql (U)Ord ered By: Eryn Okeefe on 10-10-2023 Nitrite Ql (U) Negative Negative [facility] OB Urine Drug Screen (NO THC )on 10-10-2023 Amphetamine Screen,Urine Negative Normal Negative [facility] Comment on above: Performed By: #### A DDONUAPLUS, OBUDS #### [address] Barbiturate Screen,Urine Negative Normal Negative [facility] Comment on above: Performed By: #### A DDONUAPLUS, OBUDS #### [address] Benzodiazepines Screen,Urine Negative Normal Negative [facility] Comment on above: Performed By: #### A DDONUAPLUS, OBUDS #### [place] [address] [place] Cocaine Screen,Urine Negative Normal Negative [facility] Comment on above: Performed By: #### A DDONUAPLUS, OBUDS #### [address] Opiate Screen,Urine Negative Normal Negative [facility] Comment on above: Performed By: #### A DDONUAPLUS, OBUDS #### [address] Phencyclidine Screen, Urine Negative Normal Negative [facility] Comment on above: Result Comment: Thes e are unconfirmed results and should not be used for legal purposes. Drug Cut-Off Concentration: AMPH 1000 ng/mL NELLIE 200 ng/mL SARAH BETH 200 ng/mL COCM 300 ng/mL OP 300 ng/mL PCP 25 ng/mL PERFORMED BY: [place] [address] PATHOLOGIST LETTUCE TRIMMER DARYA CANDELARIA M.D. Performed By: #### A DDONUAPLUS, OBUDS #### [address] Opiates [Presence] in Urine by Screen methodOrdered By: Eryn Okeefe on 10-10-2023 Opiates Screen Ql (U) Negative Negative [facility] Phencyclidine Screen Ql (U)O rdered By: Eryn Okeefe on 10-10-2023 Phencyclidine Ql (U) Negative Negative [facility] Comment on above: These are unconfirme d results and should not be used for legal purposes. Drug Cut-Off Concentration: AMPH 1000 ng/mL NELLIE 200 ng/mL SARAH BETH 200 ng/mL COCM 300 ng/mL OP 300 ng/mL PCP 25 ng/mL Protein Test strip (U) [Mass /Vol]Ordered By: Eryn Okeefe on 10-10-2023 Protein (U) [Mass/Vol] Trace mg/dL Negative [facility] RPR w/rfx to Quant TP Abson 10-10-2023 RPR, Rfx Quant RPR Non-Reactive Normal Non Reactive [facility] Comment on above: Result Comment: Perf ormed at: CB - [facility] [address] [id number] Supervisor Screen Printing: Americo Daley PhD, Phone: [phone] PERFORMED BY: [place] [address] PATHOLOGIST LETTUCE TRIMMER DARYA CANDELARIA M.D. Performed By: #### C BC #### [address] #### RPR W RFX #### [facility] , Reagin Ab [Presence] in Seru m by RPROrdered By: Eryn Okeefe on 10-10-2023 Reagin Ab RPR Ql (S) Non-Reactive Non Reactive [facility] Comment on above: Performed at: CB - [facility] [address] [id number] Director: Americo Daley PhD, Phone: [phone] Specific gravity Test strip (U) [Rel density]Ordered By: Eryn Okeefe on 10-10-2023 Specific gravity (U) [Rel density] 1.024 1.001-1.030 [facility] Urine appearanceOrdered By: Eryn Okeefe on 10-10-2023 Appearance (U) Clear Normal Clear [facility] Comment on above: Order Comment: Name Collection Type:: Voided Performed By: #### A EUGENE OBUDS #### [address] Urobilinogen Test strip (U) [Mass/Vol]Ordered By: Eryn Okeefe on 10-10-2023 Urobilinogen (U) [Mass/Vol] Normal mg/dL Normal [facility] pH of Urine by Test stripOrd ered By: Eryn Okeefe on 10-10-2023 pH (U) 6.5 [pH] Normal 5.0-9.0 [facility] Comment on above: Order Comment: Name Collection Type:: Voided Performed By: #### A EUGENE OBUDS #### [address] Group B Streptococcus cultur eOrdered By: Eryn Okeefe on 09-15-2023 S. agalactiae Org specific cx Ql (Unsp spec) [facility] Strep B Cultureon 09-15-2023 Strep B Culture Strep B Only Cult No Group B Beta Streptococcus Isolated 3 Days PERFORMED BY: [place] [address] PATHOLOGIST LETTUCE TRIMMER DARYA CANDELARIA M.D. Normal [facility] Comment on above: Performed By: #### C USTB #### [address] Amnisure(Pamg-1)on 4 Amnisure Negative Normal Negative [facility] Comment on above: Order Comment: Comme nt For suspected repture of membranes Result Comment: PERF ORMED BY: [place] [address] PATHOLOGIST LETTUCE TRIMMER DARYA CANDELARIA M.D. Performed By: #### A MNISURE-, OBUDS #### [address] Amphetamine Screen Ql (U)Ord ered By: CARYL Bull on 09-01-2023 Amphetamines Ql (U) Negative Negative [facility] Automated erythrocytes count in urine sediment (number/area)Ordered By: CARYL Bull on 09-01-2023 RBC Auto (Urine sed) [#/Area] 1-2 [HPF] 0-4 [facility] Automated leukocytes count i n urine sediment (number/area)Ordered By: CARYL Bull on 09-01-2023 WBC Auto (Urine sed) [#/Area] 3-4 [HPF] 0-4 [facility] Automated urine color determ inationOrdered By: CARYL Bull on 09-01-2023 Color (U) Yellow Normal Yellow [facility] Comment on above: Order Comment: Name Collection Type:: Clean-Voided Midstream Performed By: #### A DDONUAPLUS #### [facility] [address] [place] [address] [place] Barbiturates [Presence] in U rine by Screen methodOrdered By: CARYL Bull on 09-01-2023 Barbiturates Screen Ql (U) Negative Negative [facility] Benzodiazepines Screen Ql (U )Ordered By: CARYL Bull on 09-01-2023 Benzodiazepines Ql (U) Negative Negative [facility] Benzoylecgonine [Presence] i n Urine by Screen methodOrdered By: CARYL Bull on 09-01-2023 Benzoylecgonine Screen Ql (U) Negative Negative [facility] Bilirubin Test strip Ql (U)O rdered By: CARYL Bull on 09-01-2023 Bilirubin Ql (U) Negative Negative [facility] Dipstick and Microscopicon 0 09-01-2023 Appearance (U) Clear Normal Clear [facility] Comment on above: Order Comment: Name Collection Type:: Clean-Voided Midstream Performed By: #### A DDONUAPLUS #### [facility] [address] [place] [address] [place] Bacteria,Urine 1+ High None Seen [facility] Comment on above: Order Comment: Name Collection Type:: Clean-Voided Midstream Performed By: #### A DDONUAPLUS #### [place] [address] [place] Bilirubin,Urine Negative Normal Negative [facility] Comment on above: Order Comment: Name Collection Type:: Clean-Voided Midstream Performed By: #### A DDONUAPLUS #### [facility] [address] [place] [address] [place] Glucose Ql (U) Normal Normal Normal [facility] Comment on above: Order Comment: Name Collection Type:: Clean-Voided Midstream Performed By: #### A DDONUAPLUS #### [place] [address] [place] Hyaline Casts,Urine 9-19 High 0-8 [facility] Comment on above: Order Comment: Name Collection Type:: Clean-Voided Midstream Result Comment: PERF ORMED BY: [place] [address] PATHOLOGIST LETTUCE TRIMMER DARYA CANDELARIA M.D. Performed By: #### A DDONUAPLUS #### [facility] [address] [place] [address] [place] Ketones Ql (U) 2+ High Negative [facility] Comment on above: Order Comment: Name Collection Type:: Clean-Voided Midstream Performed By: #### A DDONUAPLUS #### [place] [address] [place] Leukocyte esterase Test strip Ql (U) 1+ High Negative [facility] Comment on above: Order Comment: Name Collection Type:: Clean-Voided Midstream Performed By: #### A DDONUAPLUS #### [place] [address] [place] Nitrite,Urine Negative Normal Negative [facility] Comment on above: Order Comment: Name Collection Type:: Clean-Voided Midstream Performed By: #### A DDONUAPLUS #### [place] [address] [place] Occult Blood,Urine Negative Normal Negative [facility] Comment on above: Order Comment: Name Collection Type:: Clean-Voided Midstream Result Comment: PERF ORMED BY: [place] [address] PATHOLOGIST LETTUCE TRIMMER DARYA CANDELARIA M.D. Performed By: #### A DDONUAPLUS #### [address] Protein,Urine Negative Normal Negative [facility] Comment on above: Order Comment: Name Collection Type:: Clean-Voided Midstream Performed By: #### A DDONUAPLUS #### [address] RBC,Urine 1-2 Normal 0-4 [facility] Comment on above: Order Comment: Name Collection Type:: Clean-Voided Midstream Performed By: #### A DDONUAPLUS #### [address] Specificy [place],Urine 1.017 Normal 1.001-1.030 [facility] Comment on above: Order Comment: Name Collection Type:: Clean-Voided Midstream Performed By: #### A DDONUAPLUS #### [address] Squamous Epithelial Cell,Urine 5-9 High 0-2 [facility] Comment on above: Order Comment: Name Collection Type:: Clean-Voided Midstream Performed By: #### A DDONUAPLUS #### [address] Urobilinogen,Urine Normal Normal Normal [facility] Comment on above: Order Comment: Name Collection Type:: Clean-Voided Midstream Performed By: #### A DDONUAPLUS #### [address] WBC,Urine 3-4 Normal 0-4 [facility] Comment on above: Order Comment: Name Collection Type:: Clean-Voided Midstream Performed By: #### A DDONUAPLUS #### [address] Ketones Auto test strip (U) [Mass/Vol]Ordered By: CARYL Bull on 09-01-2023 Ketones (U) [Mass/Vol] 2+ Negative Fi [facility] - UrinalysisOrder ed By: CARYL Bull on 09-01-2023 Hyaline casts LM Ql (Urine sed) 9-19 [LPF] 0-8 [facility] Nitrite Test strip Ql (U)Ord ered By: CARYL Bull on 09-01-2023 Nitrite Ql (U) Negative Negative [facility] No Panel InformationOrdered By: CARYL Bull on 09-01-2023 Membranes Rupture (PAMG-1) Negative Negative [facility] OB Urine Drug Screen (NO THC )on 09-01-2023 Amphetamine Screen,Urine Negative Normal Negative [facility] Comment on above: Performed By: #### A MNISURE-, OBUDS #### [place] [address] [place] Barbiturate Screen,Urine Negative Normal Negative [facility] Comment on above: Performed By: #### A MNISURE-, OBUDS #### [facility] [address] [place] [address] [place] Benzodiazepines Screen,Urine Negative Normal Negative [facility] Comment on above: Performed By: #### A MNISURE-, OBUDS #### [facility] [address] [place] [address] [place] Cocaine Screen,Urine Negative Normal Negative [facility] Comment on above: Performed By: #### A MNISURE-, OBUDS #### [facility] [address] [place] [address] [place] Opiate Screen,Urine Negative Normal Negative [facility] Comment on above: Performed By: #### A MNISURE-, OBUDS #### [facility] [address] [place] [address] [place] Phencyclidine Screen, Urine Negative Normal Negative [facility] Comment on above: Result Comment: Thes e are unconfirmed results and should not be used for legal purposes. Drug Cut-Off Concentration: AMPH 1000 ng/mL NELLIE 200 ng/mL SARAH BETH 200 ng/mL COCM 300 ng/mL OP 300 ng/mL PCP 25 ng/mL PERFORMED BY: [facility] [address] [place] [address] PATHOLOGIST LETTUCE TRIMMER DARYA CANDELARIA M.D. Performed By: #### A MNISURE-, OBUDS #### [address] Opiates [Presence] in Urine by Screen methodOrdered By: CARYL Bull on 09-01-2023 Opiates Screen Ql (U) Negative Negative [facility] Phencyclidine Screen Ql (U)O rdered By: CARYL Bull on 09-01-2023 Phencyclidine Ql (U) Negative Negative [facility] Comment on above: These are unconfirme d results and should not be used for legal purposes. Drug Cut-Off Concentration: AMPH 1000 ng/mL NELLIE 200 ng/mL SARAH BETH 200 ng/mL COCM 300 ng/mL OP 300 ng/mL PCP 25 ng/mL Protein Auto test strip (U) [Mass/Vol]Ordered By: CARYL Bull on 09-01-2023 Protein (U) [Mass/Vol] Negative Negative [facility] Specific gravity Auto test s trip (U) [Rel density]Ordered By: CARYL Bull on 09-01-2023 Specific gravity (U) [Rel density] 1.017 1.001-1.030 [facility] Squamous epithelial cells de tection in urine sediment by light microscopyOrdered By: CARYL Bull on 09-01-2023 Epithelial cells.squamous LM Ql (Urine sed) 5-9 [HPF] 0-2 [facility] Urine bacteria detection by automated methodOrdered By: CARYL Bull on 09-01-2023 Bacteria Auto Ql (U) 1+ [HPF] None Seen [facility] Urine clarity by refractomet ry automatedOrdered By: CARYL Bull on 09-01-2023 Clarity Refractometry automated (U) Clear Clear [facility] Urine glucose measurement by automated test strip (mass/volume)Ordered By: ESTEFANY Bull on 09-01-2023 Glucose Auto test strip (U) [Mass/Vol] Normal mg/dL Normal [facility] Urine hemoglobin detection b y automated test stripOrdered By: CARYL Bull on 09-01-2023 Hemoglobin Auto test strip Ql (U) Negative Negative [facility] Urine leukocyte esterase det ection by automated test stripOrdered By: CARYL Bull on 09-01-2023 Leukocyte esterase Auto test strip Ql (U) 1+ Negative [facility] Urine pH measurement by auto mated test stripOrdered By: CARYL Bull on 09-01-2023 pH (U) 6.0 [pH] Normal 5.0-9.0 [facility] Comment on above: Order Comment: Name Collection Type:: Clean-Voided Midstream Performed By: #### A DDONUAPLUS #### [facility] [address] [place] [address] Urobilinogen Auto test strip (U) [Mass/Vol]Ordered By: CARYL Bull on 09-01-2023 Urobilinogen (U) [Mass/Vol] Normal mg/dL Normal [facility] Glucose Tolerance 3 Houron 0 07-22-2023 Glucose Tolerance 3 Hour Normal [facility] Comment on above: Result Comment: FAST ING 90 Col: 07/22/23 0738 1HR GLU 161 Col: 07/22/23 1025 2HR GLU 155 Col: 07/22/23 0740 3HR GLU 124 Col: 07/22/23 1125 NON-GESTATIONAL GESTATIONAL FASTING 70-100 < 92 1 HOUR < 200 < 180 2 HOUR < 140 < 153 3 HOUR NOT ESTABLISHED < 140 PERFORMED BY: [place] [address] PATHOLOGIST LETTUCE TRIMMER DARYA CANDELARIA M.D. Performed By: #### G TT3 #### [facility] [address] [place] [address] Serum or plasma glucose tole abad 3 hours panelOrdered By: Eryn Okeefe on 07-22-2023 Glucose tolerance 3 hours panel See comment [facility] Comment on above: FASTING 90 Col: 03 0738 1HR GLU 161 Col: 07/22/23 1025 2HR GLU 155 Col: 07/22/23 0740 3HR GLU 124 Col: 07/22/23 1125 HCG ( test) IA.rapi d Ql (U)Ordered By: Robi Shields on 06-02-2022 HCG ( test) Ql (U) Negative [facility] Creatinine and Glomerular fi ltration rate.predicted panel (S/P/Bld)Ordered By: Tye Rubio on 05-30-2022 Creatinine [Mass/Vol] 0.75 mg/dL 0.44-1.03 [facility] Estimated glomerular filtrat ion rate (GFR) non- AmericanOrdered By: Tye Rubio on 05-30-2022 GFR/1.73 sq M.predicted among non-blacks MDRD (S/P/Bld) [Vol rate/Area] > 60 mL/Min [facility] No Panel InformationOrdered By: Tye Rubio on 05-30-2022 Estimated GFR () > 60 mL/Min [facility] Comment on above: GFR estimated refere nce range: According to KDOQI guidelines, <60 ml/min/1.73m2 is sufficient to diagnose a patient with chronic kidney disease. Pharmacy Creatinine Clearance (Chem N/A [facility] Serum or plasma anion gap de terminationOrdered By: Tye Rubio on 05-30-2022 Anion gap [Moles/Vol] 10.3 mmol/L 6.0-15.0 [facility] Serum or plasma calcium coleman urement (mass/volume)Ordered By: Tye Rubio on 05-30-2022 Calcium [Mass/Vol] 9.1 mg/dL 8.2-10.2 [facility] Serum or plasma chloride katya surement (moles/volume)Ordered By: Tye Rubio on 05-30-2022 Chloride [Moles/Vol] 106 mmol/L 95-114 [facility] Serum or plasma glucose coleman urement (mass/volume)Ordered By: Tye Rubio on 05-30-2022 Glucose [Mass/Vol] 101 mg/dL 70-100 [facility] Comment on above: ADA recommended refe rence rangeRandom Glucose Reference Range is dependent on time and content of last meal. Glucose of more than 200 mg/dL in a nonstressed, ambulatory subject supports the diagnosis of Diabetes Mellitus. Serum or plasma potassium me asurement (moles/volume)Ordered By: Tye Rubio on 05-30-2022 Potassium [Moles/Vol] 3.9 mmol/L 3.5-5.1 [facility] Serum or plasma sodium measu rement (moles/volume)Ordered By: Tye Rubio on 05-30-2022 Sodium [Moles/Vol] 135 mmol/L 136-146 [facility] Serum or plasma total carbon dioxide measurement (moles/volume)Ordered By: Tye Rubio on 05-30-2022 CO2 [Moles/Vol] 22.6 mmol/L 22.0-30.0 [facility] Serum or plasma urea nitroge n measurement (mass/volume)Ordered By: Tye Rubio on 05-30-2022 Urea nitrogen [Mass/Vol] 14 mg/dL 9-23 [facility] HCG ( test) IA.rapi d Ql (U)Ordered By: BRI DE LEON on 03-30-2022 HCG ( test) Ql (U) Negative [facility] COVID-19 SOFIAOrdered By: Lobo Rubio on 03-28-2022 SARS-CoV+SARS-CoV-2 (COVID-19) Ag IA.rapid Ql (Resp) Negative Negative [facility] Comment on above: This is a duplicate Maryellen SARS Antigen (BRANDON) result to be used for statistical tracking purpose only. No Panel InformationOrdered By: Tye Rubio on 03-28-2022 SARS Antigen (LFIA) [facility] SARS Antigen (LFIA) [facility] Coding Summary.on 02-10-2022 Coding Summary. CD:[id number] G h0bWw+PGhlYWQ+YS1ACKD mS22dcEMybV2GJ4oVOM0P RJRFCYZALF7XSG4roXD8S EumK5KwaqAh XwypkHSeFL59RZg8EUV8y PcmWEcxtY6riYLrI9v4Bl OlJL17xO32YMurMIJpAjN 3LjZpbjsgbWFy C2jrToCasNQcLic+PHRhY mxlIHdpZHRoPScxMDAlJy OioLftAT5yHd6wSQZvJLD vbGxhcHNlOiBj j2uvELFnNZcbBR3hiBouS 3ImuQU2AJAdj6p8Jc59nO I+OZBjQQH6zMynBUzlm58 5YgIoh5rkAAC5 uUXtWCzvBBU3U18sd0I8S LMaFTRlBCN7vWR3lE5esR fcwwouC7HlrESwGfX6QZJ 8oSDawN7ogUwo wtdztQ2rNgf+W69UYL4WD UPJPZ3AVbq9Z8XiQhamvE I+TN18SMVwNN89hIUjqSL yr0bavRp0ZxLb BTMkHAM4fDqeBAdts1UvN GSeV29puOGtr4L3HJIjkY qxzJTaEgNtmTA7mS3hQFg zaldwa9yztpes Xdlnm4hcpb64lM17M12sX CrsAZFjVEZ5JWEhQKQmfT lfrf4goL6fZf0+XDevv4q tq2nmaHt9EgIw SCVullYjkRhpAVM2e5VbW l53J2ZjmFfad5XqYoa7vy 81eIZit5S9fXV2LPvrYQG rrA1zNEgaIvV5 UOAiAhYiaO89zDAbTYbyV k2wjSjdtDnrPI9jJLMzbs rjCGYurA4qIGKrnZWpgJz mTH0bLGNvdehf n736AuIsQGT6SRRntGLdP 9SclV4tRxPkRMZgLMGjC1 UdeXQjRIefZ031ZRhaBhA 0DHAgujVgI5Oo PQRvyXazLkD6v4Z3Uv8Xq 7YezbrkIAL8JQrqIMXuZs UrBpXnEsO1K7XyMri4OIZ bfZhcDV3yB4Zq MMTtjoggpxfdyTB4OITpS RIjfD60rQGbHOvrZx2ih5 I6a946RFPtODHqeX63Fx9 udDogMTBwdCBU nJ1yosstw2fxpzfoTwOjS CVpMJk3NBh9CBMynDniDv KlCUL1PoO4TSH0vPIeyO8 smIglewfxvU6x Oyc+E35byI7mOHD6NTI3c mdnFIGaojGpHP55NH86U3 RyPjwvdGFibGU+PGRpdiB cwWxyEF6zPgAb b2gxf3BnBTmuH5MoLQFtH FigLdn2HXCfPHK2rKK4zZ 6mGLRjESwce9L9gBF3I4E gitUvna9mi8rm YYWrJSdmD31mtSYoa2A4C VYimYL1CRBtkVtuOrLhoI 93Oyc+UMTvnPbii2KuIfe wl9fjj0chmDd7 JqRoSUOdykYoxCgbAHO9j 8QwCr49B43zACotCGNoLL IqIUYoPVIlgOdtsy0euP1 wIi8+PGNvbCB3 pIO9pL3pBUAjPpO8XOvrO 565EeNhnFZkNbfed4eoq2 aooAf9XdClHIYajnDsmAh eWNA8h8AuJt59 X31cBIdtVLBzTQBdUVQeV WCajMngxo2rkA9pTg4+PC 0ia8bnah94vS87tEL+PHR uYPM2hIigXCsi TUBfqC0cVNudZeN7IXUwG pZtjQ61oUWkYOicUj8syJ pchJpmEY3kKLGwytsdl91 3WqGfm4qqUBXo pIJrMSpmKZO1P84dw9R3C LClGJSoURP5mGA8cR4xcY lnbjogbGVmdDsgdmVydGl lECofZLwkH592 IHRvcDsnPlBhdGllbnQgT xNbBNe1R3ZqHjm1BVPwaX gdVO8pcQEqQZioHj0wtTz iwGyvLU1cPNYg epnfe074HlMmh4lmFDGkf TKsFPidCIV3E66os6N1TD WjQPHiCGL0wMA5uR8jcWl nbjogbGVmdDsg ouMdnJenPZnnHEwlA401M HRvcDsnPkJpcnRoIERhdG X3SK49CW52dXIjl0J5tFK 3K3LzZGFdkpea vbawlLC9FZGxBNRrfR60H m1ygOorJk9vBKLrOUJ8OG MxvSTrZ8QvjP6sRmTjZZO mGGAgB9GgvVPx ARzqD258JHyrCoC2NEKvv eIqA9LeMFHrgPikZqC7o4 L6Us0IJ0A1AG69BJ54pKG hg7H1dHT1F2Zq GORxemzhqolwbNR3XLAdS WJgdQ66Gp8yqUihBz3gSQ McRKY3UFSxgSJhZ6QxgC9 yOiAjMDAwMDAw A3ZtiTAmYUrzU433LQunO sB3XXNirjPeW7IyPJKkgE dcXkU7n0M4Ts0CQJa6ET9 2QW10vAAjd0T3 rBZ9C5RjZHAupmufdhnyv EN1ANFxAVQqzU26Nd4lvR wePi8wMGNtVCL1AHUoeSA sE4VnnI4xYbTn GCTiUJEgB3KlyOLrBMcuE 814ECvwMhF0LAYdapYhK7 IuJXJctQtwQuO6j7E6Iw8 XOGZxTH85TEF3 pXP6RX22DH26S6BnWmyuq GFibGU+PHRhYmxlIHdpZH RoPScxMDAlJyBzdHlsZT0 fIg2fXJEpTVIn zWbuaYSlGfPvy8egVPXiJ BisIN4vhKhmV6NzdXB3FI Fwv0f4Bw91V42cN6GyjYD +YZAdsXI9sNL1 hH4lHpMkAdS1MEmiF012S zEgvNRxDhrus9gyg3uumP g8SaP1RMQhskDnkNbpMCD 5a3KuPs74Q24s IHdpZHRoPSIxNSUiIHZhb Knzeh1ocL2sLt5+PGNvbC J7kCW7gK7xLbXgDjA6WFe rW373LiPbjPJu Fdzxo6wig7sayBl4TuGdU GWzrtWjwUyoSVW4c0AwKw 45G2LspEyte6PzEle4is8 5wPRsk4I1gOD9 P5WpFVEyymiloQRawGpjR E1zODIgeoalQLRrkP9lFQ DlP2u7KlMxYdD2XJpiW7C rqsY9YHRaoJOr RAefUNN9Z34iq4C6OVBkH UAsYJZ8oFR7iB8rxVbszq ogbGVmdDsgdmVydGljYWw xTYnbZ130PAUp mJupPSOyjA3hBTSzkLXcy IsyXZ2gNGZaeqfmNf6MN8 pYTCHfFQdTXSkBHFm3A3M nQat4PDPpiIya MC4dvCMaGBndQq6fpCues PfcFK5jLWAzfwrfJVAxbX 8vOYNdsCJlcWkrPK2tGUF gawspy242ArMy MWQ0XSQgxZQcY6QmvV3wQ qBzTBBmJYNrX2JrkMCpJA fxS454ZPzkXlP9LTUhutA sJ2KgBNYlbOxu IwV7g3R9Zj3qIT9sVY2lV Qz3XW19VK60pKDvj9L0lU B0Q9XcDCPwajxjntgbrIQ 6DILlGDXenI15 lMLdYGcxIv3dp0D0o341F GVzXTJvoS25Ls5qiEcmKJ JhtPTDoS1iolmbp7zzotj gIzAwMDAwMDt0 GPa5FHQqvBkyEjWiKON0Z rA1YCL1gIZcpH0fgEsdwh cykN6oQrz+MjYgWWVhcnM 5L9OhRxj8GNBt jKfpSU0cnKGhHPbyOc6gr NdumYhaLT7qZHFdblkaKI GazH6pEFYdkPYlzCehLQ4 aDETgxylvr624 CoSyZIF8HTRjhVLiF4Sjv P8lJnEcMWJfCVJcR1CbzG TgLSwjG578PEaqVxY9DUN clbJcM3KpNVIl nMnaCsJ0n8Z7Jt0MFU6ja AP2Y5OnKmk5UMKvyHlfKX 7ojFIrSJciAx2hqJxekTd tOR9lTDGixyim KNQfwR7yKSDtsDYkaTfsU E4sMPFtdtvdv230KbCeCA N7VCOumXMkK0LczL1nRwQ sQKAtIFLmO1Po bNYtNCxzU445KYyuQpJ7W DUegnFqC7TuIMZcxGucRd P4i1Y2Ss4IiPXsVSRiIX1 8QF07FM44Z6Ng PjwvdGFibGU+PHRhYmxlI HdpZHRoPScxMDAlJyBzdH yzMD1lOn8fESOlXMBjaGp sqADfBrSae1fz SKDmBVneRX5efEvxJ2Gor XH6TNVkg9s5Hr07F78lA6 JvdXA+OEOvjLD7lII7rH5 pMeOlUkR3NHqs C152OaIbuGThSqmja3lch 7lxlSk9OwIuUDFoodTmzI piBIS4t1UrTp69C17nNSi pZHRoPSIyMCUi ZTHsdGdcxk5wsI8xGa5+P RUrnPZ3aWN5pK3bBfEtNv L9IRsfV726RyLwySEzKyp jW86dF2AxiYO+ EBXhKft2CRAfbJsaNU2ry ZCnIXklWg7zEQL1KkXiUh EmCDrcW3PeASWofekrvdc ddLO0BCFfQLLn mL26St0ipRtlVz8pMDRfS TR0PGZvzGJeP0PcjY8rTr TzDLWxPIIjV0PqsEToHLn zV720PSmkVcR4 NWOyemRjX2TnXQJozFqaK vD4f1N2Rk2SyOmlwIIlPL 9kSnIeURr6R9IePxd3VUM xzSwtSV0twWCx RVjfKr5ioTobzErtYI0sV PDxtmprv946VsCdl0jzNU MhyYTtOZztDMS0V64mv2W 9LGWsKOCdTFR9 uCO9oC5dqSwodthqnPYka DsgdmVydGljYWwtYWxpZ2 60WNEfgBseTfQQMpw8I2B iTqa3DZSraXsg YU0ykRFfHWyjTi1buXkzc TtgHH8uHERtdktrn969Vp Bvl4teCZEckEJaDYcdGXS 4B20nc5R5AXUi OTYpQUL8fFI6fD2wmQrqa jogbGVmdDsgdmVydGljYW ueKBdaW120DUVqsMojYd7 OMqi1Q2QlTkb5 KYQboVvaHZ8jzFOfLSwhZ k0ssMzfiEwnEY9sRLWzzk dhr116GmEoq6zgUCGamWB yJZqzKRD8C67h p5G7WGVcCCSrCIU1fRZ2s G7icRjmknvosMFtjDhbml CgsBmvIZjjFMirZ080ZZB vcDsnPlBheWVy OjwvdGQ+DE80mq85V4GyJ nwqBpi2KDEaWXA5bTW6yK 2bKMOsKRthr6Q6eDQ6J0L cutCntc4zw8px YXBz (more content not included)... Normal [facility] SARS IgGon 02-05-2022 SARS-CoV-2 (COVID-19) Ab [Interp] Positive Invalid Interpretation Code [facility] Comment on above: Result Comment: Anti bodies against the SARS-CoV-2 spike protein, including the receptor binding domain (RBD) were detected. It is not yet known what level of antibody to SARS-CoV-2 spike protein correlates to immunity against developing symptomatic SARS-CoV-2 disease. This assay was performed using [employer](R) SARS-CoV-2 Trimeric S IgG assay. This test has not been FDA cleared or approved. This test has been authorized by FDA under an Emergency Use Authorization (EUA). This test is only authorized for the duration of the declaration that circumstances exist justifying the authorization of emergency use of in vitro diagnostics for detection and/or diagnosis of COVID-19 under Section 564(b)(1) of the Act, 21 U.S.C. 360bbb-3(b)(1), unless the authorization is terminated or revoked sooner. This test has been authorized only for detecting the presence of antibodies against SARS-CoV-2, not for any other viruses or pathogens. Performed at: [facility] [id number] PhD Thuy Driscoll Performed By: #### S ARS-CoV-2 Antibody, lgG #### [facility] [address] [place] [id number] SARS-CoV-2 (COVID-19) IgG IA Qn 16.5 A unit/mL Invalid Interpretation Code Neg <13.0 [facility] Comment on above: Result Comment: This test has not been FDA cleared or approved. This test has been authorized by FDA under an Emergency Use Authorization (EUA). This test is only authorized for the duration of the declaration that circumstances exist justifying the authorization of emergency use of in vitro diagnostics for detection and/or diagnosis of COVID-19 under Section 564(b)(1) of the Act, 21 U.S.C. 360bbb-3(b)(1), unless the authorization is terminated or revoked sooner. This test has been authorized only for detecting the presence of antibodies against SARS-CoV-2, not for any other viruses or pathogens. Performed By: #### S ARS-CoV-2 Antibody, lgG #### [facility] [address] [place] [address] Consent for Treatmenton 01-22 Consent for Treatment [id number]:127 Normal [facility] Physician Orderon 02-04-2022 Physician Order [id number] .[id number]:127 Normal [facility] HCG ( test) IA.rapi d Ql (U)Ordered By: Ronni Scruggs on 12-16-2021 HCG ( test) Ql (U) Negative [facility] COVID-19 Positive/NegativeOr dered By: Tye Rubio on 12-14-2021 SARS-CoV-2 (COVID-19) N gene ELLEN+probe Ql (Resp) Negative Negative [facility] Comment on above: Testing for SARS-CoV -2 by RT-PCR This test was developed and its performance characteristics determined by [employer] [facility] [facility] and validated at the [facility]. This test has not been FDA cleared or approved. This test has been authorized by FDA under an Emergency Use Authorization (EUA). This test has been validated in accordance with the FDA's Guidance Document (Policy for Diagnostics Testing in Laboratories Certified to Perform High Complexity Testing under CLIA prior to Emergency Use Authorization for Coronavirus Disease-2019 during the Public Health Emergency) issued on July 25, 2019. This test is only authorized for the duration of time the declaration that circumstances exist justifying the authorization of the emergency use of in vitro diagnostic tests for detection of SARS-CoV-2 virus and/or diagnosis of COVID-19 infection under section 564(b)(1) of the Act, 21 U.S.C. 360bbb-3(b)(1), unless the authorization is terminated or revoked sooner. Creatinine and Glomerular fi ltration rate.predicted panel (S/P/Bld)Ordered By: Tye Rubio on 12-07-2021 Creatinine [Mass/Vol] 0.82 mg/dL 0.44-1.03 [facility] Estimated glomerular filtrat ion rate (GFR) non- AmericanOrdered By: Tye Rubio on 12-07-2021 GFR/1.73 sq M.predicted among non-blacks MDRD (S/P/Bld) [Vol rate/Area] > 60 mL/Min [facility] No Panel InformationOrdered By: Tye Rubio on 12-07-2021 Estimated GFR () > 60 mL/Min [facility] Comment on above: GFR estimated refere nce range: According to KDOQI guidelines, <60 ml/min/1.73m2 is sufficient to diagnose a patient with chronic kidney disease. Pharmacy Creatinine Clearance (Chem N/A [facility] Serum or plasma calcium coleman urement (mass/volume)Ordered By: Tye Rubio on 12-07-2021 Calcium [Mass/Vol] 9.5 mg/dL 8.2-10.2 [facility] Serum or plasma chloride katya surement (moles/volume)Ordered By: Tye Rubio on 12-07-2021 Chloride [Moles/Vol] 105 mmol/L 95-114 [facility] Serum or plasma glucose coleman urement (mass/volume)Ordered By: Tye Rubio on 12-07-2021 Glucose [Mass/Vol] 87 mg/dL 70-100 [facility] Comment on above: ADA recommended refe rence range Random Glucose Reference Range is dependent on time and content of last meal. Glucose of more than 200 mg/dL in a nonstressed, ambulatory subject supports the diagnosis of Diabetes Mellitus. Serum or plasma potassium me asurement (moles/volume)Ordered By: Tye Rubio on 12-07-2021 Potassium [Moles/Vol] 4.0 mmol/L 3.5-5.1 [facility] Serum or plasma sodium measu rement (moles/volume)Ordered By: Tye Rubio on 12-07-2021 Sodium [Moles/Vol] 137 mmol/L 136-146 [facility] Serum or plasma total carbon dioxide measurement (moles/volume)Ordered By: Tye Rubio on 12-07-2021 CO2 [Moles/Vol] 23.9 mmol/L 22.0-30.0 [facility] Serum or plasma urea nitroge n measurement (mass/volume)Ordered By: Tye Rubio on 12-07-2021 Urea nitrogen [Mass/Vol] 5 mg/dL 01-[address] [facility] [address] Sinus w/o Contrast*on CT Sinus w/o Contrast* HISTORY: Congesti on. Postnasal drip. Maxillary sinus pressure. Acute recurrent maxillary sinusitis. Disturbance of smell and taste. COMPARISON: None available TECHNIQUE: Multiple contiguous axial images of the paranasal sinuses were obtained without contrast enhancement. Multiplanar reformatted images were acquired at the CT console. All CT scans at this facility use dose modulation, iterative reconstruction, and/or weight based dosing when appropriate to reduce radiation dose to as low as reasonably achievable. FINDINGS: Maxillary Sinuses: Clear. Sphenoid Sinuses: Clear. Frontal Sinuses: Clear. Ethmoid Air Cells: Clear. Ostiomeatal units, frontal recesses, and sphenoethmoidal recesses are patent. There is pneumatization of the sphenoid sinus that extends posteriorly to the anterior margin of the sella consistent with presellar type sphenoid pneumatization. No Taylor or Onodi cells. Keros type II olfactory fossa. Middle ears: Clear. Nasal Septum: Minimal rightward deviation. Bones: No evidence of osseous destruction. Miscellaneous: No acute intracranial process identified. Orbital contents are within normal limits. IMPRESSION: Paranasal sinuses are clear. Report reported and signed by Ronni Keys on 09/08/2021 1200 Normal [facility] [employer] Vital Signs Date Time Vital Sign Value Performing Clinician Facility 04-29-2024 01:00-0500 Diastolic blood pressure 69 mm[Hg] [facility] AFTER[facility]MOUSE [facility] 04-29-2024 01:00-0500 Heart rate 88 /min [facility] 04-29-2024 01:00-0500 Mean blood pressure 83 mm[Hg] [facility] 04-29-2024 01:00-0500 Respiratory rate 12 /min [facility] 04-29-2024 01:00-0500 SaO2% (BldA) [Mass fraction] 97 % [facility] 04-29-2024 01:00-0500 Systolic blood pressure 111 mm[Hg] Elieser Shiloh [facility] 04-29-2024 00:00-0500 Diastolic blood pressure 76 mm[Hg] Elieser Shiloh [facility] 04-29-2024 00:00-0500 Heart rate 93 /min Elieser Shiloh [facility] 04-29-2024 00:00-0500 Mean blood pressure 91 mm[Hg] Elieser Shiloh [facility] 04-29-2024 00:00-0500 Respiratory rate 8 /min Elieser Shil[facility] 04-29-2024 00:00-0500 SaO2% (BldA) [Mass fraction] 98 % Elieser Shiloh [facility] 04-29-2024 00:00-0500 Systolic blood pressure 121 mm[Hg] Elieser Shiloh [facility] 04-28-2024 23:00-0500 Diastolic blood pressure 60 mm[Hg] Elieser Shiloh [facility] 04-28-2024 23:00-0500 Heart rate 105 /min Elieser Shiloh [facility] 04-28-2024 23:00-0500 Mean blood pressure 71 mm[Hg] Elieser Shiloh [facility] 04-28-2024 23:00-0500 Respiratory rate 10 /min Elieser Shiloh [facility] 04-28-2024 23:00-0500 SaO2% (BldA) [Mass fraction] 100 % Elieser Shiloh [facility] 04-28-2024 23:00-0500 Systolic blood pressure 93 mm[Hg] Elieser Shiloh [facility] 04-28-2024 21:54-0500 Body temperature 97.88 [degF] Elieser Shiloh [facility] 04-28-2024 21:54-0500 Heart rate 101 /min Elieser Shiloh [facility] 04-28-2024 21:54-0500 Respiratory rate 20 /min Elieser Shiloh [facility] 04-18-2024 13:45-0500 Body mass index (BMI) [Ratio] 36.58 kg/m2 Idris Omer [employer] Work Phone: [facility] 04-18-2024 13:45-0500 Body temperature 98.01 [degF] Idris Negra [employer] Work Phone: [facility] 04-18-2024 13:45-0500 Body weight 90.72 kg Idris Omer [employer] Work Phone: [facility] 04-18-2024 13:45-0500 Diastolic blood pressure 64 mm[Hg] Idris Omer [employer] Work Phone: [facility] 04-18-2024 13:45-0500 Heart rate 78 /min Idris Omer [employer] Work Phone: [facility] 04-18-2024 13:45-0500 SaO2% (BldA) [Mass fraction] 99 % Idris Omer [employer] Work Phone: [facility] 04-18-2024 13:45-0500 Systolic blood pressure 90 mm[Hg] Idris Omer [employer] Work Phone: [facility] 03-07-2024 18:10-0500 Blood Pressure Location Hayden Mares [facility] 03-07-2024 18:10-0500 Body temperature 98.24 [degF] Hayden Mares [facility] 03-07-2024 18:10-0500 Diastolic blood pressure 88 mm[Hg] Hayden Mares [facility] 03-07-2024 18:10-0500 Heart rate 88 /min Hayden Mares [facility] 03-07-2024 18:10-0500 SaO2% (BldA) [Mass fraction] 97 % Hayden Mares [facility] 03-07-2024 18:10-0500 Systolic blood pressure 122 mm[Hg] Hayden Mares [facility] 2024 08:56-0500 Body mass index (BMI) [Ratio] 36.76 kg/m2 Eryn Visci DO Work Phone: [facility] 2024 08:56-0500 Body weight 91.17 kg Eryn Visci DO Work Phone: [facility] 2024 08:56-0500 Diastolic blood pressure 70 mm[Hg] Eryn Visci DO Work Phone: [facility] 2024 08:56-0500 Systolic blood pressure 112 mm[Hg] Eryn Visci DO Work Phone: [facility] 02-15-2024 10:55-0400 Body mass index (BMI) [Ratio] 36.21 kg/m2 Eryn Visci DO Work Phone: [facility] 02-15-2024 10:55-0400 Body weight 89.81 kg Eryn Visci DO Work Phone: [facility] 02-15-2024 10:55-0400 Diastolic blood pressure 72 mm[Hg] Eryn Visci DO Work Phone: [facility] 02-15-2024 10:55-0400 Systolic blood pressure 122 mm[Hg] Eryn Visci DO Work Phone: [facility] 01-12-2024 11:36-0400 Body mass index (BMI) [Ratio] 34.93 kg/m2 Eryn Visci DO Work Phone: [facility] 01-12-2024 11:36-0400 Body weight 86.64 kg Eryn Visci DO Work Phone: [facility] 01-12-2024 11:36-0400 Diastolic blood pressure 78 mm[Hg] Eryn Visci DO Work Phone: [facility] 01-12-2024 11:36-0400 Systolic blood pressure 122 mm[Hg] Eryn Visci DO Work Phone: [facility] 10-12-2023 10:00-0400 Body temperature 98 [degF] DO Laz Ferrari Work Phone: [facility] 10-12-2023 10:00-0400 Diastolic blood pressure 86 mm[Hg] DO Laz Tesmond Work Phone: [facility] 10-12-2023 10:00-0400 Heart rate 84 /min DO Laz Mamiemond Work Phone: [facility] 10-12-2023 10:00-0400 Respiratory rate 16 /min DO Laz Mamiemond Work Phone: [facility] 10-12-2023 10:00-0400 SaO2% (BldA) [Mass fraction] 97 % DO Laz Mamiemond Work Phone: [facility] 10-12-2023 10:00-0400 Systolic blood pressure 124 mm[Hg] DO Laz Tesmond Work Phone: [facility] 10-10-2023 14:12-0400 Body height 160.02 cm DO Laz Tesmond Work Phone: [facility] 10-10-2023 14:12-0400 Body weight 97.52 kg DO Laz Mamiemond Work Phone: [facility] 09-01-2023 14:15-0400 Body height 160.02 cm DO Laz Ferrari Work Phone: [facility] 09-01-2023 14:15-0400 Body weight 97.52 kg DO Laz Hatchmond Work Phone: [facility] 09-01-2023 14:00-0400 Respiratory rate 18 /min DO Laz Hatchmond Work Phone: [facility] 09-01-2023 13:40-0400 Body temperature 96.3 [degF] DO Laz Ferrari Work Phone: [facility] 09-01-2023 13:40-0400 Diastolic blood pressure 73 mm[Hg] DO Laz Hatchmond Work Phone: [facility] 09-01-2023 13:40-0400 Heart rate 116 /min DO Laz Hatchmond Work Phone: [facility] 09-01-2023 13:40-0400 SaO2% (BldA) [Mass fraction] 98 % DO Laz Ferrari Work Phone: [facility] 09-01-2023 13:40-0400 Systolic blood pressure 124 mm[Hg] DO Laz Hatchmond Work Phone: [facility] 06-02-2022 13:45-0500 Diastolic blood pressure 74 mm[Hg] DO Laz Hatchmond Work Phone: [facility] 06-02-2022 13:45-0500 Heart rate 113 /min DO Laz Tesmond Work Phone: [facility] 06-02-2022 13:45-0500 Respiratory rate 16 /min DO Laz Tesmond Work Phone: [facility] 06-02-2022 13:45-0500 SaO2% (BldA) [Mass fraction] 98 % DO Laz Tesmond Work Phone: [facility] 06-02-2022 13:45-0500 Systolic blood pressure 132 mm[Hg] DO Laz Ferrari Work Phone: [facility] 06-02-2022 12:49-0500 Body temperature 98.4 [degF] DO Lazzahra Ferrari Work Phone: [facility] 06-02-2022 11:58-0500 Body height 160.02 cm DO Laz Ferrari Work Phone: [facility] 06-02-2022 11:58-0500 Body mass index (BMI) [Ratio] 39 kg/m2 DO Laz Ferrari Work Phone: [facility] 06-02-2022 11:58-0500 Body weight 100 kg DO Laz Ferrari Work Phone: [facility] 03-30-2022 10:02-0500 Diastolic blood pressure 65 mm[Hg] DO Laz Ferrari Work Phone: [facility] 03-30-2022 10:02-0500 Heart rate 85 /min DO Laz Ferrari Work Phone: [facility] 03-30-2022 10:02-0500 Respiratory rate 16 /min DO Laz Ferrari Work Phone: [facility] 03-30-2022 10:02-0500 SaO2% (BldA) [Mass fraction] 97 % DO Laz Ferrari Work Phone: [facility] 03-30-2022 10:02-0500 Systolic blood pressure 105 mm[Hg] DO Laz Ferrari Work Phone: [facility] 03-30-2022 09:31-0500 Body temperature 98.4 [degF] DO Laz Ferrari Work Phone: [facility] 03-30-2022 09:01-0500 Inhaled oxygen flow rate 8 L/min DO Laz Ferrari Work Phone: [facility] 03-30-2022 08:24-0500 Body height 160.02 cm DO Laz Ferrari Work Phone: [facility] 03-30-2022 08:24-0500 Body mass index (BMI) [Ratio] 38.2 kg/m2 DO aLz Ferrari Work Phone: [facility] 03-30-2022 08:24-0500 Body weight 97.97 kg DO Laz Ferrari Work Phone: [facility] 12-16-2021 11:00-0400 Diastolic blood pressure 68 mm[Hg] DO Laz Ferrari Work Phone: [facility] 12-16-2021 11:00-0400 Heart rate 82 /min DO Laz Ferrari Work Phone: [facility] 12-16-2021 11:00-0400 Respiratory rate 16 /min DO Laz Ferrari Work Phone: [facility] 12-16-2021 11:00-0400 SaO2% (BldA) [Mass fraction] 96 % DO Laz Ferrari Work Phone: [facility] 12-16-2021 11:00-0400 Systolic blood pressure 104 mm[Hg] DO Laz Ferrari Work Phone: [facility] 12-16-2021 09:44-0400 Body temperature 98 [degF] DO Laz Ferrari Work Phone: [facility] 12-16-2021 09:14-0400 Inhaled oxygen flow rate 2 L/min DO Laz Ferrari Work Phone: [facility] 12-16-2021 08:15-0400 Body height 160.02 cm DO Laz Ferrari Work Phone: [facility] 12-16-2021 08:15-0400 Body mass index (BMI) [Ratio] 38 kg/m2 DO Laz Hatchmarlon Work Phone: [facility] 12-16-2021 08:15-0400 Body weight 97.4 kg DO Laz Ferrari Work Phone: [facility] Encounters Encounter Date Encounter Type Care Provider Facility Start: 06-10-2024 ambulatory DIGNA HIRSCH Facili ty:[facility] [place] Start: 06-06-2024 ambulatory Elieser Matamoros Facility: [facility] [place] Start: 05-20-2024 ambulatory Elieser Matamoros Facility: [facility] Start: 04-28-2024 End: 04-29-2024 Emergency department patient visit Elieser Matamoros [facility] Start: 04-18-2024 End: 04-18-2024 Office outpatient visit 25 minutes Idris Omer RIVETER HAND Work Phone: [facility] Comment on above: Fall, initial encoun ter (Primary Dx); Right hand pain; Right wrist pain; Sprain and strain of right hand Start: 04-18-2024 End: 04-18-2024 ambulatory IDRIS OMER Not Available Start: 04-12-2024 End: 04-12-2024 ambulatory DIGNA A JOYCELYN Facility:[facility] [place] Start: 04-10-2024 End: 04-10-2024 ambulatory DIGNA A JOYCELYN Facility:[facility] [place] Start: 04-09-2024 End: 04-09-2024 ambulatory TICKET WRITER DIGNA A JOYCELYN Facility:[facility] [place] Start: 04-05-2024 End: 04-05-2024 ambulatory TICKET WRITER DIGNA A JOYCELYN [place] Start: 04-05-2024 End: 04-05-2024 Patient encounter procedure DIGNA HIRSCH [facility] Start: 04-05-2024 End: 04-05-2024 Lab Drop off DIGNA A JOYCELYN [facility] Start: 04-05-2024 End: 04-05-2024 ambulatory TICKET WRITER DIGNA A JOYCELYN Facility:[facility] [place] Start: 03-07-2024 End: 03-07-2024 ambulatory Hayden Mares Facility: [place] Start: 03-07-2024 End: 03-07-2024 Patient encounter procedure Hayden Mares [facility] Start: 2024 End: 2024 Office outpatient visit 15 minutes Eryn A Visci DO Work Phone: [facility] Comment on above: General counseling a nd advice on contraceptive management (Primary Dx); Nexplanon in place; Hidradenitis suppurativa; Nexplanon removal; Pain and numbness of left upper extremity; Encounter for Nexplanon removal Start: 2024 End: 2024 ambulatory ERYN A VISCI Not Available Start: 02-19-2024 End: 02-22-2024 Telephone encounter Eryn A Visci DO Work Phone: [facility] Start: 02-15-2024 End: 02-15-2024 Patient encounter procedure Eryn A Visci DO Work Phone: [facility] Comment on above: Nexplanon insertion (Primary Dx) Start: 02-15-2024 End: 02-15-2024 ambulatory ERYN A VISCI Not Available Start: 01-12-2024 End: 01-12-2024 Bamboo flowsheet Eryn A Visci DO Work Phone: [facility] Start: 01-12-2024 End: 01-12-2024 Bamboo flowsheet Eryn A Visci DO Work Phone: [facility] Start: 01-12-2024 End: 01-12-2024 Manual pelvic examination Eryn A Visci DO Work Phone: [facility] Work Phone: Start: 01-12-2024 End: 01-12-2024 Periodic preventive med est patient 18-39 yrs Eryn A Visci DO Work Phone: [facility] Comment on above: Abnormal female pelv ic exam (Primary Dx); Screening for malignant neoplasm of cervix; History of loop electrical excision procedure (LEEP); History of abnormal cervical Pap smear; examination or test, positive result; Hidradenitis suppurativa; General counseling and advice on contraceptive management Start: 01-12-2024 End: 01-12-2024 ambulatory ERYN A VISCI Not Available Start: 12-16-2023 End: 12-16-2023 Refill Eryn A Visci DO Work Phone: [facility] Comment on above: Vulvar irritation Start: 11-13-2023 End: 11-13-2023 ambulatory ERYN A VISCI Not Available Start: 10-10-2023 End: 10-12-2023 Evaluation and management of inpatient DO Laz Ferrari Work Phone: [facility] Work Phone: Start: 10-06-2023 End: 10-06-2023 ambulatory ERYN A VISCI Not Available Start: 09-29-2023 End: 09-29-2023 ambulatory ERYN A VISCI Not Available Start: 09-22-2023 End: 09-22-2023 ambulatory ERYN A VISCI Not Available Start: 09-15-2023 End: 09-15-2023 Departed Referred DO Laz Ferrari Work Phone: [facility] [place] Work Phone: Start: 09-15-2023 End: 09-15-2023 ambulatory DO Laz Ferrari Work Phone: [facility] Work Phone: Start: 09-08-2023 End: 09-08-2023 ambulatory ERYN A VISCI Not Available Start: 09-01-2023 End: 09-01-2023 Patient encounter procedure DO Laz Ferrari Work Phone: [facility] Start: 09-01-2023 End: 09-01-2023 ambulatory DO Laz Ferrari Work Phone: [facility] Work Phone: Start: 08-18-2023 End: 08-18-2023 ambulatory ERYN A VISCI Not Available Start: 08-04-2023 End: 08-04-2023 ambulatory ERYN A VISCI Not Available Start: 07-22-2023 End: 07-22-2023 Patient encounter procedure DO Laz Mamiemarlon Work Phone: [facility] [place] Work Phone: Start: 07-22-2023 End: 07-22-2023 ambulatory DO Laz Ferrari Work Phone: [facility] Work Phone: Start: 07-13-2023 End: 07-13-2023 ambulatory ERYN A VISCI Not Available Start: 07-06-2023 End: 07-06-2023 ambulatory IDRIS OMER Not Available Start: 07-05-2023 End: 07-05-2023 ambulatory ERYN A VISCI Not Available Start: 06-09-2023 End: 06-09-2023 ambulatory ERYN A VISCI Not Available Start: 05-19-2023 End: 05-19-2023 ambulatory ERYN A VISCI Not Available Start: 05-17-2023 End: 05-17-2023 ambulatory JENNIFER SOLORIO Not Available Start: 06-02-2022 End: 06-02-2022 Admission to same day surgery center DO Laz Ferrari Work Phone: [facility] [place] Start: 06-02-2022 End: 06-02-2022 ambulatory DO Laz Ferrari Work Phone: [facility] Work Phone: Start: 05-30-2022 End: 05-30-2022 ambulatory DO Laz Ferrari Work Phone: [facility] Work Phone: Start: 05-30-2022 End: 05-30-2022 Patient encounter procedure DO Laz Ferrari Work Phone: [facility] Work Phone: Start: 03-30-2022 End: 03-30-2022 Admission to same day surgery center DO Laz Ferrari Work Phone: [facility] [place] Start: 03-30-2022 End: 03-30-2022 ambulatory DO Laz Ferrari Work Phone: [facility] Work Phone: Start: 03-28-2022 End: 03-28-2022 Patient encounter procedure DO Laz Ferrari Work Phone: [facility]Surgical [facility] Start: 02-04-2022 End: 02-05-2022 ambulatory Angie Garcia [place] Start: 02-04-2022 End: 02-04-2022 Patient encounter procedure Angie Garcia [facility] Start: 12-16-2021 End: 12-16-2021 Admission to same day surgery center DO Laz Ferrari Work Phone: [facility] [place] Start: 12-14-2021 End: 12-14-2021 Patient encounter procedure DO Laz Ferrari Work Phone: [facility] Start: 12-07-2021 End: 12-07-2021 Patient encounter procedure DO Laz Ferrari Work Phone: [facility] Procedures Date Procedure Procedure Detail Performing Clinician Start: 04-18-2024 ED SPLINTING / CASTI NG / STRAPPING Tammie Landin 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 Start: 2024 PIE FILLING MIXER INSERTION/REMOVA L OF CONTRACEPTIVE CAPSULE Eryn A Visci DO Work Phone: Start: 02-15-2024 PIE FILLING MIXER INSERTION/REMOVA L OF CONTRACEPTIVE CAPSULE Eryn A Visci DO Work Phone: Start: 02-15-2024 Urine test visual color cmprsn meths Eryn A Visci DO Work Phone: Start: 01-12-2024 Urine test visual color cmprsn meths Eryn Quintanilla Viscnatasha DO Work Phone: Start: 09-15-2023 Streptococcus agalac tiae culture DO Laz Ferrari Work Phone: Start: 06-02-2022 Debridement DO Laz Ferrari Work Phone: Start: 03-30-2022 Debridement DO Laz Ferrari Work Phone: Start: 03-28-2022 SARS Antigen (LFIA) DO Laz Ferrari Work Phone: Start: 12-16-2021 OR Wound Debridement/I&D/Hydradeni tis (Not Applicable) DO Laz Ferrari Work Phone: Start: 07-25-2016 excision of chronic abscess right breast ( 1.0 CM),right axilla ( 1.0 CM),upper chest wall ( 1,2 cm). 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 Hayden Mares Start: 07-13-2015 Excision of abscess upper anterior chest wall Hayden Vishnu Start: 07-05-2013 excision of pilonida l cyst Hayden Prestonpsey denies Hayden Vishnu H/O: surgery History of loop electrical excision procedure (LEEP) Eryn Quintanilla Visci DO Work Phone: INSERTION NORPLANT 1, 2 Radha Blackmaney Comment on above: LEFT ARM FOR C ONTROL removed norplant removed Hayden Hiral baird Plan of Treatment Date Care Activity Detail Author Start: 01-03-2025 End: 01-03-2025 Patient encounter procedure 01/03/2025 11:00 AM EDT Office Visit [facility] [address] [place] [address] Eryn Okeefe, DO [address] [place] [address] [facility] Start: 03-26-2024 End: 03-26-2024 Patient encounter procedure 03/26/2024 11:25 AM EST Office Visit [facility] [address] [place] [id number] Sylvia Treviño, TRANSPLANT WORKER-TICKET WRITER [address] [place] [address] [facility] Start: 2024 End: 2024 Patient encounter procedure 2024 8:45 AM EST Procedure Visit [facility] [address] [place] [address] Eryn Okeefe, DO [address] [place] [address] [facility] Start: 02-22-2024 End: 02-22-2024 Patient encounter procedure 02/22/2024 11:35 AM EDT Office Visit [facility] [address] [place] [id number] Sylvia Treviño, TRANSPLANT WORKER-TICKET WRITER [address] [place] [address] [facility] Start: 01-12-2024 End: 01-12-2024 Patient encounter procedure 01/12/2024 11:15 AM EDT Office Visit [facility] [address] [facility] [place] [address] Eryn Okeefe, DO [address] [place] [address] Encounter for gynecological examination (general) (routine) without abnormal findings; Screening for malignant neoplasm of cervix; History of loop electrical excision procedure (LEEP); History of abnormal cervical Pap smear [facility] Comment on above: Encounter for gyneco logical examination (general) (routine) without abnormal findings; Screening for malignant neoplasm of cervix; History of loop electrical excision procedure (LEEP); History of abnormal cervical Pap smear Start: 12-29-2023 End: 12-29-2023 Patient encounter procedure 12/29/2023 11:15 AM EDT Office [facility] [address] [facility] [place] [address] Eryn Okeefe, DO [address] [facility] [address] [place] [address] [facility] Start: 12-24-2023 Influenza vaccination Influenza Vacc ine (#1) [facility] Start: 10-12-2023 [facility] Start: 10-10-2023 Hospital admission [facility] Start: 10-10-2023 Hospital admission [facility] Start: 09-15-2023 Group B Streptococcu s Culture Group B Streptococcus Culture [facility] Start: 09-01-2023 [facility] Start: 09-01-2023 Hospital admission [facility] Start: 06-02-2022 End: 06-02-2022 [facility] Start: 03-30-2022 End: 03-30-2022 [facility] Start: 12-16-2021 End: 12-16-2021 [facility] Work Phone: Start: 12-16-2021 OR Wound Debridement/I&D/Hydraden itis (Not Applicable) OR Wound Debridement/I&D/Hydrade nitis (Not Applicable) [facility] Start: 12-16-2021 End: 12-16-2021 Admission to same day surgery center Departed Surgical Day Care [facility] [place] Start: 12-14-2021 End: 12-14-2021 Patient encounter procedure Departed Clinical [facility] Patient Education [facility] Work Phone: Patient referral [facility] Work Phone: SENDOUT TEST MISCELLANEOUS [facility] SENDOUT TEST MISCELLANEOUS [facility] Lab Routine Screening for malignant neoplasm of cervix History of loop electrical excision procedure (LEEP) History of abnormal cervical Pap smear Ordered: 01/12/2024 [facility] Work Phone: Comment on above: Ordered: 01/12/2024 Streptococcus agalac tiae [Presence] in Unspecified specimen by Organism specific culture [facility] Immunizations Immunization Date Immunization Notes Care Provider Fa katie 08-12-2020 tetanus toxoid, reduced diphtheria toxoid, and acellular pertussis vaccine, adsorbed DO Laz Ferrari Work Phone: [facility] 01-01-2016 tetanus toxoid, reduced diphtheria toxoid, and acellular pertussis vaccine, adsorbed Hayden Mares [facility] Comment on above: Reason for Medicatio n: Other (see comment) NEGATED: Highlighted row has not occurred!03-07-2024 influenza virus vaccine, unspecified formulation Hayden Mares [facility] Payers Date Payer Category Payer Self-pay [id number] 2022 Medicaid [id number] 2022 Private Health Insurance [facility] MEDICAID [id number] 2022 Medicaid [id number] 2022 Medicaid [id number] 1995 Unknown [id number] 2.16.840.1.235611.3.579.2. 72 1995 Unknown [id number] 2.16.840.1.513853.3.579.2. 72 1995 Unknown [id number] 2.16.840.1.589548.3.579.2. 72 1995 Unknown [id number] 2.16.840.1.931142.3.579.2. 72 1995 Unknown [id number] 2.16.840.1.672360.3.579.2. 72 1995 Unknown [id number] 2.16.840.1.342392.3.579.2. 1995 Unknown [id number] 2.16.840.1.319484.3.579.2. 1258 1995 Unknown [id number] 2.16.840.1.466333.3.579.2. 1258 1995 Unknown [id number] 2.16.840.1.265062.3.579.2. 1258 1995 Unknown [id number] 2.16.840.1.847319.3.579.2. 1258 1995 Unknown [id number] 2.16.840.1.717215.3.579.2. 1258 1995 Unknown [id number] 2.16.840.1.675498.3.579.2. 1258 1995 Unknown [id number] 2.16.840.1.595730.3.579.2. 1258 1995 Unknown [id number] 2.16.840.1.801812.3.579.2. 1258 1995 Unknown [id number] 2.16.840.1.464211.3.579.2. 1258 1995 Unknown [id number] 2.16.840.1.267792.3.579.2. 1258 1995 Unknown [id number] 2.16.840.1.629600.3.579.2. 1258 1995 Unknown [id number] 2.16.840.1.229527.3.579.2. 1258 1995 Unknown [id number] 2.16.840.1.228418.3.579.2. 1258 1995 Unknown [id number] 2.16.840.1.944500.3.579.2. 1258 1995 Unknown [id number] 2.16.840.1.045985.3.579.2. 1258 1995 Unknown [id number] 2.16.840.1.287673.3.579.2. 1258 1995 Unknown [id number] 2.16.840.1.955354.3.579.2. 1258 1995 Unknown [id number] 2.16.840.1.058124.3.579.2. 1258 1995 Unknown [id number] 2.16.840.1.567455.3.579.2. 1258 1995 Unknown [id number] 2.16.840.1.200435.3.579.2. 1258 1995 Unknown [id number] 2.16.840.1.556078.3.579.2. 1995 Unknown [id number] 2.16.840.1.931723.3.579.2. 1995 Unknown [id number] 2.16.840.1.640627.3.579.2. 1995 Unknown [id number] 2.16.840.1.328360.3.579.2. 1995 Unknown [id number] 2.16.840.1.345105.3.579.2. 7 Unknown [id number] 2.16.840.1.093623.3.579.2. 531 Unknown [id number] 2.16.840.1.116180.3.579.2. 531 Unknown [id number] 2.16.840.1.297856.3.579.2. 531 Unknown [id number] 2.16840.1.147423.3.579.2. 531 Social History Date Type Detail Facility Start: 12-16-2021 End: 03-07-2024 Tobacco smoking status NHIS Ex-smoker (finding) [facility] Start: 1995 Sex Assigned At Female F [facility] Tobacco smoking status No Smokin g Status Entered [facility] Start: 12-20-2022 End: 01-12-2024 Sex Assigned At Female [facility] Start: 02-24-2023 Tobacco smoking stat [facility] Never smoked tobacco [facility] Start: 02-24-2023 Tobacco use and exposure Smokeless tobacco non-user [facility] Start: 02-15-2024 End: 04-18-2024 Alcoholic beverage intake Ex-drinker (finding) [facility] Start: 12-20-2022 End: 01-12-2024 History of Social function [facility] How often to you hav e a drink containing alcohol? Never [facility] Start: 04-05-2024 How many standard drinks containing alcohol do you have on a typical day? Patient does not drink [facility] Start: 12-22-2022 Education 13 [facility] Start: 02-24-2023 Tobacco Comment Quit 2 years a go per patient [facility] Start: 12-22-2022 Alcohol Comment caffeine intak e: 1-2 cups per day [facility] Start: 1995 Sex assigned at Not on file [facility] Start: 07-06-2022 Gender identity Identifies as female gender (finding) [facility] Tobacco smoking status Heavy tob acco smoker (finding) [facility] Start: 04-12-2024 Tobacco smoking status Light t obacco smoker (finding) [facility] [place] Goals Date Patient Goal Desired Activity /State Functional Status Date Assessment Result Facility 04-28-2024 Functional Status N/A [facility] 03-07-2024 Functional Status N/A [facility] 10-12-2023 Functional status Patient at [facility] Work Phone: Mental Status Date Assessment Result Facility 10-12-2023 Cognitive function Cognitive Sta tus Patient at Baseline [facility] Work Phone: Clinical Notes 02-04-2022 to 04-29-2024 Note Date & Type Note Facility 04-29-2024 Hospital Discharg e instructions Patient Education 04/29/2024 02:51:57 Palpitations Palpitations Palpitations are feelings that your heartbeat is irregular or is faster than normal. It may feel like your heart is fluttering or skipping a beat. Palpitations may be caused by many things, including smoking, caffeine, alcohol, stress, and certain medicines or drugs. Most causes of palpitations are not serious. However, some palpitations can be a sign of a serious problem. Further tests and a thorough medical history will be done to find the cause of your palpitations. Your provider may order tests such as an ECG, labs, an echocardiogram, or an ambulatory continuous ECG monitor. Follow these instructions at home: Pay attention to any changes in your symptoms. Let your health care provider know about them. Take these actions to help manage your symptoms: Eating and drinking Follow instructions from your health care provider about eating or drinking restrictions. You may need to avoid foods and drinks that may cause palpitations. These may include: Caffeinated coffee, tea, soft drinks, and energy drinks. Chocolate. Alcohol. Diet pills. Lifestyle Take steps to reduce your stress and anxiety. Things that can help you relax include: ?Yoga. ?Mind-body activities, such as deep breathing, meditation, or using words and images to create positive thoughts (guided imagery). ?Physical activity, such as swimming, jogging, or walking. Tell your health care provider if your palpitations increase with activity. If you have chest pain or shortness of breath with activity, do not continue the activity until you are seen by your health care provider. ?Biofeedback. This is a method that helps you learn to use your mind to control things in your body, such as your heartbeat. Get plenty of rest and sleep. Keep a regular bed time. Do not use drugs, including cocaine or ecstasy. Do not use marijuana. Do not use any products that contain nicotine or tobacco. These products include cigarettes, chewing tobacco, and vaping devices, such as e-cigarettes. If you need help quitting, ask your health care provider. General instructions Take ijpt-hcz-dbkrmbx and prescription medicines only as told by your health care provider. Keep all follow-up visits. This is important. These may include visits for further testing if palpitations do not go away or get worse. Contact a health care provider if: You continue to have a fast or irregular heartbeat for a long period of time. You notice that your palpitations occur more often. Get help right away if: You have chest pain or shortness of breath. You have a severe headache. You feel dizzy or you faint. These symptoms may represent a serious problem that is an emergency. Do not wait to see if the symptoms will go away. Get medical help right away. Call your local emergency services (911 in the [place] Do not drive yourself to the hospital. Summary Palpitations are feelings that your heartbeat is irregular or is faster than normal. It may feel like your heart is fluttering or skipping a beat. Palpitations may be caused by many things, including smoking, caffeine, alcohol, stress, certain medicines, and drugs. Further tests and a thorough medical history may be done to find the cause of your palpitations. Get help right away if you faint or have chest pain, shortness of breath, severe headache, or dizziness. This information is not intended to replace advice given to you by your health care provider. Make sure you discuss any questions you have with your health care provider. Document Revised: 09/01/2021 Document Reviewed: 09/01/2021 [employer] Patient Education 2023 [employer]. 04/29/2024 02:51:57 Nonspecific Chest Pain, Adult Nonspecific Chest Pain, Adult Chest pain is an uncomfortable, tight, or painful feeling in the chest. The pain can feel like a crushing, aching, or squeezing pressure. A person can feel a burning or tingling sensation. Chest pain can also be felt in your back, neck, jaw, shoulder, or arm. This pain can be worse when you move, sneeze, or take a deep breath. Chest pain can be caused by a condition that is life-threatening. This must be treated right away. It can also be caused by something that is not life-threatening. If you have chest pain, it can be hard to know the difference, so it is important to get help right away to make sure that you do not have a serious condition. Some life-threatening causes of chest pain include: Heart attack. A tear in the body's main blood vessel (aortic dissection). Inflammation around your heart (pericarditis). A problem in the lungs, such as a blood clot (pulmonary embolism) or a collapsed lung (pneumothorax). Some non life-threatening causes of chest pain include: Heartburn. Anxiety or stress. Damage to the bones, muscles, and cartilage that make up your chest wall. Pneumonia or bronchitis. Shingles infection (varicella-zoster virus). Your chest pain may come and go. It may also be constant. Your health care provider will do tests and other studies to find the cause of your pain. Treatment will depend on the cause of your chest pain. Follow these instructions at home: Medicines Take bgac-zxw-jeoosyu and prescription medicines only as told by your health care provider. If you were prescribed an antibiotic medicine, take it as told by your health care provider. Do not stop taking the antibiotic even if you start to feel better. Activity Avoid any activities that cause chest pain. Do not lift anything that is heavier than 10 lb (4.5 kg), or the limit that you are told, until your health care provider says that it is safe. Rest as directed by your health care provider. Return to your normal activities only as told by your health care provider. Ask your health care provider what activities are safe for you. Lifestyle Do not use any products that contain nicotine or tobacco, such as cigarettes, e-cigarettes, and chewing tobacco. If you need help quitting, ask your health care provider. Do not drink alcohol. Make healthy lifestyle changes as recommended. These may include: ?Getting regular exercise. Ask your health care provider to suggest some exercises that are safe for you. ?Eating a heart-healthy diet. This includes plenty of fresh fruits and vegetables, whole grains, low-fat (lean) protein, and low-fat dairy products. A dietitian can help you find healthy eating options. ?Maintaining a healthy weight. ?Managing any other health conditions you may have, such as high blood pressure (hypertension) or diabetes. ?Reducing stress, such as with yoga or relaxation techniques. General instructions Pay attention to any changes in your symptoms. It is up to you to get the results of any tests that were done. Ask your health care provider, or the department that is doing the tests, when your results will be ready. Keep all follow-up visits as told by your health care provider. This is important. You may be asked to go for further testing if your chest pain does not go away. Contact a health care provider if: Your chest pain does not go away. You feel depressed. You have a fever. You notice changes in your symptoms or develop new symptoms. Get help right away if: Your chest pain gets worse. You have a cough that gets worse, or you cough up blood. You have severe pain in your abdomen. You faint. You have sudden, unexplained chest discomfort. You have sudden, unexplained discomfort in your arms, back, neck, or jaw. You have shortness of breath at any time. You suddenly start to sweat, or your skin gets clammy. You feel nausea or you vomit. You suddenly feel lightheaded or dizzy. You have severe weakness, or unexplained weakness or fatigue. Your heart begins to beat quickly, or it feels like it is skipping beats. These symptoms may represent a serious problem that is an emergency. Do not wait to see if the symptoms will go away. Get medical help right away. Call your local emergency services (911 in the [place] Do not drive yourself to the hospital. Summary Chest pain can be caused by a condition that is serious and requires urgent treatment. It may also be caused by something that is not life-threatening. Your health care provider may do lab tests and other studies to find the cause of your pain. Follow your health care provider's instructions on taking medicines, making lifestyle changes, and getting emergency treatment if symptoms become worse. Keep all follow-up visits as told by your health care provider. This includes visits for any further testing if your chest pain does not go away. This information is not intended to replace advice given to you by your health care provider. Make sure you discuss any questions you have with your health care provider. Document Revised: 02/23/2023 Document Reviewed: 02/23/2023 [employer] Patient Education 2023 [employer]. Follow Up Care 04/28/2024 21:52:39 With:DIGNA JOYCELYN Address: [address] [place] [phone] Business (1) When:Within 3 Day(s) [facility] 04-29-2024 Note ED Patient Education Note Emergency Medicine Palpitations Palpitations are feelings that your heartbeat is irregular or is faster than normal. It may feel like your heart is fluttering or skipping a beat. Palpitations may be caused by many things, including smoking, caffeine, alcohol, stress, and certain medicines or drugs. Most causes of palpitations are not serious. However, some palpitations can be a sign of a serious problem. Further tests and a thorough medical history will be done to find the cause of your palpitations. Your provider may order tests such as an ECG, labs, an echocardiogram, or an ambulatory continuous ECG monitor. Follow these instructions at home: Pay attention to any changes in your symptoms. Let your health care provider know about them. Take these actions to help manage your symptoms: Eating and drinking Follow instructions from your health care provider about eating or drinking restrictions. You may need to avoid foods and drinks that may cause palpitations. These may include: ??? Caffeinated coffee, tea, soft drinks, and energy drinks. ??? Chocolate. ??? Alcohol. ??? Diet pills. Lifestyle ??? Take steps to reduce your stress and anxiety. Things that can help you relax include: ? Yoga. ? Mind-body activities, such as deep breathing, meditation, or using words and images to create positive thoughts (guided imagery). ? Physical activity, such as swimming, jogging, or walking. Tell your health care provider if your palpitations increase with activity. If you have chest pain or shortness of breath with activity, do not continue the activity until you are seen by your health care provider. ? Biofeedback. This is a method that helps you learn to use your mind to control things in your body, such as your heartbeat. ??? Get plenty of rest and sleep. Keep a regular bed time. ??? Do not use drugs, including cocaine or ecstasy. Do not use marijuana. ??? Do not use any products that contain nicotine or tobacco. These products include cigarettes, chewing tobacco, and vaping devices, such as e-cigarettes. If you need help quitting, ask your health care provider. General instructions ??? Take fgza-amm-mhxtnha and prescription medicines only as told by your health care provider. ??? Keep all follow-up visits. This is important. These may include visits for further testing if palpitations do not go away or get worse. Contact a health care provider if: ??? You continue to have a fast or irregular heartbeat for a long period of time. ??? You notice that your palpitations occur more often. Get help right away if: ??? You have chest pain or shortness of breath. ??? You have a severe headache. ??? You feel dizzy or you faint. These symptoms may represent a serious problem that is an emergency. Do not wait to see if the symptoms will go away. Get medical help right away. Call your local emergency services (911 in the [place] Do not drive yourself to the hospital. Summary ??? Palpitations are feelings that your heartbeat is irregular or is faster than normal. It may feel like your heart is fluttering or skipping a beat. ??? Palpitations may be caused by many things, including smoking, caffeine, alcohol, stress, certain medicines, and drugs. ??? Further tests and a thorough medical history may be done to find the cause of your palpitations. ??? Get help right away if you faint or have chest pain, shortness of breath, severe headache, or dizziness. This information is not intended to replace advice given to you by your health care provider. Make sure you discuss any questions you have with your health care provider. Document Revised: 09/01/2021 Document Reviewed: 09/01/2021 [employer] Patient Education ? 2023 [employer] Pulmonary Medicine Nonspecific Chest Pain, Adult Chest pain is an uncomfortable, tight, or painful feeling in the chest. The pain can feel like a crushing, aching, or squeezing pressure. A person can feel a burning or tingling sensation. Chest pain can also be felt in your back, neck, jaw, shoulder, or arm. This pain can be worse when you move, sneeze, or take a deep breath. Chest pain can be caused by a condition that is life-threatening. This must be treated right away. It can also be caused by something that is not life-threatening. If you have chest pain, it can be hard to know the difference, so it is important to get help right away to make sure that you do not have a serious condition. Some life-threatening causes of chest pain include: ??? Heart attack. ??? A tear in the body's main blood vessel (aortic dissection). ??? Inflammation around your heart (pericarditis). ??? A problem in the lungs, such as a blood clot (pulmonary embolism) or a collapsed lung (pneumothorax). Some non life-threatening causes of chest pain include: ??? Heartburn. ??? Anxiety or stress. ??? Damage to the bones, muscles, and cartil (more content not included)... [facility] 04-28-2024 Evaluation + Plan note Extrac shavon from: Title:ED Note Author:Elieser Matamoros DO. Date :04/28/24 Chest pain (R07.9: Chest jones n, unspecified) Palpitations (R00.2: Palpitations) Orders: Basic Metabolic Panel CBC w/ Auto Diff CTA Chest D-Dimer ECG 12 Lead Adult ED Cardiac Monitoring eGFR Extra SST Tube Magnesium Level Oxygen Saturation Oxygen Therapy PT & PTT Saline Lock Insert Troponin 0 Hr. Troponin 1 Hr. [facility] 12-26-2024 History of Present illness Narrative* Idris Omer NP - 04/18/2024 1:25 PM EST HPI: Historian of HPI: patient Angela Smith is a 29 y.o. female who presents today to the Urgent Care with the following complaints and denials due which has been present for 4 hours . C/O Denies Symptom Comments [x] [] swelling [] [x] ecchymosis [x] [x] erythema [] [x] tingling [] [x] numbness [] [x] Pain radiation [] [x] Weakness [x] [] Decreased ROM [x] [] Trauma Additional Comments: Pt reports she fell while using a hover board this morning and injured her right hand by slamming into door frame . ROS: A complete system ROS was performed and negative aside from the pertinent positives noted in the HPI and PE. Visit Vitals BP 90/64 Pulse 78 Temp 98 F Wt 200 lb SpO2 99% BMI 36.58 kg/m OB Status Unknown Smoking Status Never BSA 1.99 m Physical Exam Vitals reviewed. Constitutional: General: She is not in acute distress. Appearance: Normal appearance. HENT: Head: Normocephalic and atraumatic. Nose: Nose normal. Mouth/Throat: Mouth: Mucous membranes are moist. Pharynx: Oropharynx is clear. Eyes: Extraocular Movements: Extraocular movements intact. Conjunctiva/sclera: Conjunctivae normal. Pupils: Pupils are equal, round, and reactive to light. Cardiovascular: Rate and Rhythm: Normal rate and regular rhythm. Pulses: Normal pulses. Heart sounds: Normal heart sounds. Pulmonary: Effort: Pulmonary effort is normal. No respiratory distress. Breath sounds: Normal breath sounds. No wheezing, rhonchi or rales. Musculoskeletal: Right forearm: Normal. Right wrist: Swelling, tenderness and bony tenderness present. No crepitus. Decreased range of motion. Normal pulse. Right hand: Swelling, tenderness and bony tenderness present. Decreased range of motion. Decreased strength. Normal sensation. Normal capillary refill. Normal pulse. Cervical back: Normal range of motion and neck supple. Skin: General: Skin is warm and dry. Capillary Refill: Capillary refill takes less than 2 seconds. Findings: No rash. Neurological: General: No focal deficit present. Mental Status: She is alert and oriented to person, place, and time. Psychiatric: Mood and Affect: Mood normal. 1. Fall, initial encounter (Primary) Presents today for evaluation of injury to right hand/wrist that occurred earlier today when patient fell of a moving hover board and slammed my right hand and wrist into the doorframe . X ray obtained and pre-liminary read is questionable for possible fracture. Discussed with patient that rather a break/strain/or sprain that a splint is the treatment of choice. Volar mold applied to right arm in urgent care with directions for use. Signs/symptoms and red flags of when to seek emergent medicalattention were discussed. She expressed an understanding. - XR hand 3+ views right; Future - XR wrist 3+ views right; Future - Splint Application 2. Right hand pain See below. - XR hand 3+ views right; Future - XR wrist 3+ views right; Future - Splint Application 3. Right wrist pain See below. - XR hand 3+ views right; Future - XR wrist 3+ views right; Future - Splint Application 4. Sprain and strain of right hand Dx and tx discussed. Patient expressed an understanding. RICE protocol. XR right hand FINDINGS: Carpal bone alignment is anatomic; no intercarpal diastases. The metacarpals and phalanges are unremarkable. Minor swelling. No foreign body. No periarticular osseous erosion. IMPRESSION: Minor swelling in the absence of acute underlying osseous/articular pathology. XR right wrist FINDINGS: Minor swelling. Carpal bone alignment is anatomic; no intercarpal diastases. No fracture. No osteonecrosis. No periarticular osseous erosion. No foreign body. IMPRESSION: Minor swelling in the absence of acute underlying osseous/articular pathology. See telephone encounter. * Tammie Landin LPN - 04/18/2024 1:25 PM ESTAssociated Order(s): Splint Application Post-Procedure Diagnose(s): Right hand pain; Right wrist pain; Fall, initial encounter Images from the original note were not included. Patient ID: Angela Smith is a 29 y.o. female. Splint Application Date/Time: 04/18/2024 2:43 PM Performed by: Tammie Landin LPN Authorized by: Idris Omer NP Consent: Consent obtained: Verbal Consent given by: Patient Procedure details: Supplies: Cotton padding, plaster and elastic bandage Attestation: Splint applied and adjusted personally by ct documented in this encounterCapital Region Medical [id number] NotePatient Education Orthopedics Spondylolisthesis Rehab Ask your health care provider which exercises are safe for you. Do exercises exactly as told by your health care provider and adjust them as directed. It is normal to feel mild stretching, pulling, tightness, or discomfort as you do these exercises. Stop right away if you feel sudden pain or your pain gets worse. Do not begin these exercises until told by your health care provider. Stretching and iyoze-mi-nzxowm exercises These exercises warm up your muscles and joints and improve the movement and flexibility of your hips and back. These exercises may also help to relieve pain, numbness, and tingling. Single knee to chest 1. Lie on your back on a firm surface with both legs straight. 2. Bend one of your knees. Use your hands to move your knee up toward your chest until you feel a gentle stretch in your lower back and buttock. ??? Hold your leg in this position by holding on to the front of your knee. ??? Keep your other leg as straight as possible. 3. Hold for seconds. 4. Slowly return to the starting position. 5. Repeat this exercise with your other leg. Repeat times. Complete this exercise times a day. Double knee to chest 1. Lie on your back on a firm surface with both legs straight. 2. Bend one of your knees and move it toward your chest until you feel a gentle stretch in your lower back and buttock. 3. Tense your abdominal muscles and repeat the previous step with your other leg. 4. Hold both of your legs in this position by holding on to the backs of your thighs or the fronts of your knees. 5. Hold for seconds. 6. Tense your abdominal muscles and slowly move your legs back to the floor, one leg at a time. Repeat times. Complete this exercise times a day. Strengthening exercises These exercises build strength and endurance in your back. Endurance is the ability to use your muscles for a long time, even after they get tired. Pelvic tilt This exercise strengthens the muscles that lie deep in the abdomen (deep abdominals). 1. Lie on your back on a firm surface. Bend your knees and keep your feet flat. 2. Tense your abdominal muscles. Tip your pelvis up toward the ceiling and flatten your lower back into the floor. ??? To help with this exercise, you may place a small towel under your lower back and try to push your back into the towel. 3. Hold for seconds. 4. Let your muscles relax completely before you repeat this exercise. Repeat times. Complete this exercise times a day. Abdominal crunch 1. Lie on your back on a firm surface. Bend your knees and keep your feet flat. Cross your arms over your chest. 2. Tuck your chin down toward your chest, without bending your neck. 3. Use your abdominal muscles to lift your upper body off the ground, straight up into the air. ??? Try to lift yourself until your shoulder blades are off the ground. You may need to work up to this. ??? Keep your lower back on the ground while you crunch upward. ??? Do not hold your breath. 4. Slowly lower yourself down. Keep your abdominal muscles tense until you are back to the startingposition. Repeat times. Complete this exercise times a day. Alternating arm and leg raises 1. Get on your hands and knees on a firm surface. If you are on a hard floor, you may want to use padding, such as an exercise mat, to cushion your knees. 2. Line up your arms and legs. Your hands should be directly below your shoulders, and your knees should be directly below your hips. 3. Lift your left leg behind you. At the same time, raise your right arm and straighten it in frontof you. ??? Do not lift your leg higher than your hip. ??? Do not lift your arm higher than your shoulder. ??? Keep your abdominal and back muscles tight. ??? Keep your hips facing the ground. ??? Do not arch your back. ??? Keep your balance carefully, and do not hold your breath. 4. Hold for seconds. 5. Slowly return to the starting position. 6. Repeat with your right leg and your left arm. Repeat times. Complete this exercise times a day. Posture and body mechanics Good posture and healthy body mechanics can help to relieve stress in your body's tissues and joints. Body mechanics refers to the movements and positions of your body while you do your daily activities. Posture is part of body mechanics. Good posture means: ??? Your spine is in its natural S-curve position (neutral). ??? Your shoulders are pulled back slightly. ??? Your head is not tipped forward. Follow these guidelines to improve your posture and body mechanics in your everyday activities. Standing (Inse (more content not included)...[facility]12-13-2024 Note Patient Education Orthopedics Chronic Back Pain Chronic back pain is back pain that lasts longer than 3 months. The pain may get worse at certain times (flare-ups). There are things you can do at home to manage your pain. Follow these instructions at home: Watch for any changes in your symptoms. Take these actions to help with your pain: Managing pain and stiffness ??? If told, put ice on the painful area. You may be told to use ice for 24?48 hours after a flare-up starts. ? Put ice in a plastic bag. ? Place a towel between your skin and the bag. ? Leave the ice on for 20 minutes, 2?3 times a day. ??? If told, put heat on the painful area. Do this as often as told by your doctor. Use the heat source that your doctor recommends, such as a moist heat pack or a heating pad. ? Place a towel between your skin and the heat source. ? Leave the heat on for 20?30 minutes. ??? If your skin turns bright red, take off the ice or heat right away to prevent skin damage. The risk of damage is higher if you cannot feel pain, heat, or cold. ??? Soak in a warm bath. This can help with pain. Activity ??? Avoid bending and other activities that make the pain worse. ??? When you stand: ? Keep your upper back and neck straight. ? Keep your shoulders pulled back. ? Avoid slouching. ??? When you sit: ? Keep your back straight. ? Relax your shoulders. Do not round your shoulders or pull them backward. ??? Do not sit or fitting room attendant one place for too long. ??? Take short rest breaks during the day. Lying down or standing is often better than sitting. Resting can help relieve pain. ??? When sitting or lying down for a long time, do some mild activity or stretching. This will helpto prevent stiffness and pain. ??? Get regular exercise. Ask your doctor what activities are safe for you. ??? You may have to avoid lifting. Ask your provider how much you can safely lift. ??? If you lift things: ? Bend your knees. ? Keep the weight close to your body. ? Avoid twisting. Medicines ??? Take irgm-jcs-wzhjoat and prescription medicines only as told by your doctor. ? You may need to take medicines for pain and swelling. These may be taken by mouth or put on the skin. You may also be given muscle relaxants. ??? Ask your doctor if the medicine prescribed to you: ? Requires you to avoid driving or using machinery. ? Can cause trouble pooping (constipation). You may need to take these actions to prevent or treat trouble pooping: ? Drink enough fluid to keep your pee (urine) pale yellow. ? Take dyqn-nfb-wrushgq or prescription medicines. ? Eat foods that are high in fiber. These include beans, whole grains, and fresh fruits and vegetables. ? Limit foods that are high in fat and sugars. These include fried or sweet foods. General instructions ??? Sleep on a firm mattress. Try lying on your side with your knees slightly bent. If you lie on your back, put a pillow under your knees. ??? Do not smoke or use any products that contain nicotine or tobacco. If you need help quitting, ask your doctor. Contact a doctor if: ??? Your pain does not get better with rest or medicine. ??? You have new pain. ??? You have a fever. ??? You lose weight quickly. ??? You have trouble doing your normal activities. ??? One or both of your legs or feet feel weak. ??? One or both of your legs or feet lose feeling (have numbness). Get help right away if: ??? You are not able to control when you pee or poop. ??? You have bad back pain and: ? You feel like you may vomit (nauseous). ? You vomit. ? You have pain in your chest or your belly (abdomen). ? You have shortness of breath. ? You faint. These symptoms may be an emergency. Get help right away. Call 911. ??? Do not wait to see if the symptoms will go away. ??? Do not drive yourself to the hospital. This information is not intended to replace advice given to you by your health care provider. Make sure you discuss any questions you have with your health care provider. Document Revised: 11/28/2022 Document Reviewed: 11/28/2022 [employer] Patient Education ? 2023 [employer] 03-08-2024 NotePatient Education Pulmonary Medicine Acute Bronchitis, Adult Acute bronchitis is sudden inflammation of the main airways (bronchi) that come off the windpipe (trachea) in the lungs. The swelling causes the airways to get smaller and make more mucus than normal. This can make it hard to breathe and can cause coughing or noisy breathing (wheezing). Acute bronchitis may last several weeks. The cough may last longer. Allergies, asthma, and exposureto smoke may make the condition worse. What are the causes? This condition can be caused by germs and by substances that irritate the lungs, including: ??? Cold and flu viruses. The most common cause of this condition is the virus that causes the common cold. ??? Bacteria. This is less common. ??? Breathing in substances that irritate the lungs, including: ? Smoke from cigarettes and other forms of tobacco. ? Dust and pollen. ? Fumes from household cleaning products, gases, or burned fuel. ? Indoor or outdoor air pollution. What increases the risk? The following factors may make you more likely to develop this condition: ??? A weak body's defense system, also called the immune system. ??? A condition that affects your lungs and breathing, such as asthma. What are the signs or symptoms? Common symptoms of this condition include: ??? Coughing. This may bring up clear, yellow, or green mucus from your lungs (sputum). ??? Wheezing. ??? Runny or stuffy nose. ??? Having too much mucus in your lungs (chest congestion). ??? Shortness of breath. ??? Aches and pains, including sore throat or chest. How is this diagnosed? This condition is usually diagnosed based on: ??? Your symptoms and medical history. ??? A physical exam. You may also have other tests, including tests to rule out other conditions, such as pneumonia. These tests include: ??? A test of lung function. ??? Test of a mucus sample to look for the presence of bacteria. ??? Tests to check the oxygen level in your blood. ??? Blood tests. ??? Chest X-ray. How is this treated? Most cases of acute bronchitis clear up over time without treatment. Your health care provider may recommend: ??? Drinking more fluids to help thin your mucus so it is easier to cough up. ??? Taking inhaled medicine (inhaler) to improve air flow in and out of your lungs. ??? Using a vaporizer or a humidifier. These are machines that add water to the air to help you breathe better. ??? Taking a medicine that thins mucus and clears congestion (expectorant). ??? Taking a medicine that prevents or stops coughing (cough suppressant). It is not common to take an antibiotic medicine for this condition. Follow these instructions at home: ??? Take mtxh-lap-pszvsfr and prescription medicines only as told by your health care provider. ??? Use an inhaler, vaporizer, or humidifier as told by your health care provider. ??? Take two teaspoons (10 mL) of honey at bedtime to lessen coughing at night. ??? Drink enough fluid to keep your urine pale yellow. ??? Do not use any products that contain nicotine or tobacco. These products include cigarettes, chewing tobacco, and vaping devices, such as e-cigarettes. If you need help quitting, ask your health care provider. ??? Get plenty of rest. ??? Return to your normal activities as told by your health care provider. Ask your health care provider what activities are safe for you. ??? Keep all follow-up visits. This is important. How is this prevented? To lower your risk of getting this condition again: ??? Wash your hands often with soap and water for at least 20 seconds. If soap and water are not available, use hand electric installer. ??? Avoid contact with people who have cold symptoms. ??? Try not to touch your mouth, nose, or eyes with your hands. ??? Avoid breathing in smoke or chemical fumes. Breathing smoke or chemical fumes will make your condition worse. ??? Get the flu shot every year. Contact a health care provider if: ??? Your symptoms do not improve after 2 weeks. ??? You have trouble coughing up the mucus. ??? Your cough keeps you awake at night. ??? You have a fever. Get help right away if you: ??? Cough up blood. ??? Feel pain in your chest. ??? Have severe shortness of breath. ??? Faint or keep feeling like you are going to faint. ??? Have a severe headache. ??? Have a fever or chills that get worse. These symptoms may represent a serious problem that is an emergency. Do not wait to see if the symptoms will go away. Get medical help right away. Call your local emergency services (911 in the [place] Do not drive yourself to the hospital. Summary ??? Acute bronchitis is inflammation of the main airways (bronchi) that come off the windpipe (trachea) in the lungs. The swelling causes the airways to get smaller and make more mucus than normal. ??? Drinking (more content not included)...[facility]11-04-2024 History of Present illness Narrative* Eryn Okeefe, DO - 2024 8:45 AM ESTAssociated Order(s): Insertion/Removal of Contraceptive Capsule Post-Procedure Diagnose(s): Nexplanon in place; Nexplanon removal Images from the original note were not included. Subjective Angela Smith is a 28 y.o. female Chief Complaint Patient presents with Contraception History of Present Illness Current Outpatient Medications: triamcinolone (Kenalog) 0.1 % ointment, APPLY THIN FILM TWICE A DAY UNTIL SYMTOMS RESOLVE, THEN WEEN TO ONCE A DAY FOR SEVERAL DAYS, THEN EVERY OTHER DAY, THEN STOP, Disp: 30 g, Rfl: 0 albuterol HFA 90 mcg/act inhaler, Inhale 2 puffs every 6 (six) hours if needed., Disp: , Rfl: ibuprofen 600 MG tablet, Take 600 mg by mouth every 6 (six) hours if needed for mild pain or moderate pain, Disp: , Rfl: spironolactone (Aldactone) 50 MG tablet, Take 150 mg by mouth Daily, Disp: , Rfl: Past Medical History: Diagnosis Date Anxiety Asthma, extrinsic with status asthmaticus, unspecified asthma severity ([facility]) Bronchitis Depression ([facility]) Hospitalized Hidradenitis suppurativa History of abnormal cervical Pap smear 05/06/21 neg; 11/23/20 neg, HPV neg; 07/2019 lgsil ,12/24/19 ascus / hpv negative. History of UTI HPV in female Morbid obesity ([facility]) MRSA (methicillin resistant Staphylococcus aureus) Nexplanon insertion 05/2016 Dr. Anton Nexplanon insertion 11/16/2020 Nexplanon removal 09/28/2017 Perianal abscess multiple perianal abscesses Suicide attempt ([facility]) Vaginal infection Past Surgical History: Procedure Laterality Date ACNE SURGERY Cystic Acne X4 BREAST CYST EXCISION Left 05/21/2020 CERVICAL BIOPSY W/ LOOP ELECTRODE EXCISION 11/06/2020 CYST REMOVAL 04/2019 groin and abdominal fold EXCISION Right 08/03/2017 right axillary hidradenitis, [place]aff[place] EXCISION 02/12/2018 Excision bilateral groin & right axillary hydradenitis EXCISION Left 10/19/2018 groin hidradenitis w/ PCLaff EXCISION Left 11/27/2020 Lt. axillary and breast hidradenitis INCISION AND DRAINAGE hidradenitis INSERTION OF CONTRACEPTIVE CAPSULE 02/15/2024 Nexplanon inserion LABIAPLASTY Right 07/2020 LUBA SKIN LESION EXCISION 06/02/2022 Hidradenitis surgery in right armpit and right groin Family History Problem Relation Name Age of Onset Dementia Mother Other (low blood pressure) Mother Fibromyalgia Mother No Known Problems Sister No Known Problems Daughter Endometriosis Mother's Sister Schizophrenia Mother's Sister Bipolar disorder Mother's Sister Diabetes Paternal Grandmother OB History Para Term AB Living 4 3 3 0 1 3 SAB IAB Ectopic Multiple Live Births 1 0 0 0 3 # Outcome Date GA Lbr Andres/2nd Weight Sex Type Anes PTL Lv 4 Term 10/10/23 39w3d 6 lb 9 oz M Vag-Spont EPI N TYRON 3 Term 08/11/20 39w4d 6 lb 2 oz F Vag-Spont TYRON Comments: IUGR, GDM 2 Term 12/31/15 38w4d 5 lb 15 oz F Vag-Spont TYRON 1 SAB 02/2015 Obstetric Comments Pap 12/22/22- Neg ; 05/19/22- Neg ; H/O LEEP Review of Systems All negative unless documented in treatment Objective Visit Vitals BP 112/70 (BP Location: Right arm, Patient Position: Sitting) Wt 201 lb BMI 36.76 kg/m OB Status Unknown Smoking Status Never BSA 2 m Allergies Allergen Reactions Morphine Anaphylaxis Penicillin G Sodium Severe swelling, brown urine No trouble breathing per pt Wound Dressing Adhesive Other Reaction(s): Rash OBGyn Exam Insertion/Removal of Contraceptive Capsule Date/Time: 2024 9:22 AM Performed by: Eryn Okeefe DO Authorized by: Eryn Okeefe DO Consent: Consent obtained: Verbal Consent given by: Patient Procedural risks discussed: Bleeding and infection Patient agrees, verbalizes understanding, and wants to proceed: yes Indication: Indication: Presence of non-biodegradable drug delivery implant Pre-procedure: Prepped with: povidone-iodine Local anesthetic: Lidocaine with epinephrine Procedure: Procedure: Removal Left/right: Left Site was closed with steri-strips and pressure bandage applied: yes ICD-10-CM 1. Nexplanon in place Z97.5 2. Hidradenitis suppurativa L73.2 Patient here to discuss Nexplanon. Nexplanon was placed 02/15/24. She states her hand/arm went numband she has been having trouble grabbing items. Nexplanon in correct location, discussed possible relation to hidradenitis suppurativa. She is not currently on an ATB, she has gotten a cortisone injection from the specialists that deals with her hidradenitis and it has not improved the symptoms that started when she had the Nexplanon inserted. The implant is very superficial. There is no erythemaor red streaking. There is no evidence of infection at all. Her arm is very tender when I touch thearea and she complains that she has shooting pains into her hand that prevent her from holding or gr ipping anything. She would like Nexplanon removed, states her spouse is planning on getting a vasectomy. Discussed keeping Nexplanon in until spouse completes vasectomy. She is insistent on removing Nexplanon. Nexplanon removed, she tolerated this well, will rx OCP Loestrin 120. Entered by Nikki Taylor LPN acting as scribe for Dr. Eryn Okeefe. Signature: Nikki Taylor LPN The documentation recorded by the scribe accurately reflects the service(s) I personally performed and the decisions I made. Signature: Eryn Okeefe DO Assessment & Plan documented in this encounterCapital Region Medical [id number] Telephone encounter Note* Telephone Encounter - Melanie Elliott MA - 02/20/2024 11:01 AM EDT Nexplanon removal EFFECTIVE DATE: 11-03-2022- Covered: 100% No Deductible NO PRIOR AUTH REQUIRED Scheduled 02/21 for possible removal [facility] [id number] Miscellaneous Notes* Telephone Encounter - Melanie Elliott MA - 02/20/2024 11:01 AM EDT Nexplanon removal EFFECTIVE DATE: 11-03-2022- Covered: 100% No Deductible NO PRIOR AUTH REQUIRED Scheduled 02/21 for possible removal * Telephone Encounter - Melanie Elliott MA - 02/19/2024 12:39 PM EDT Nexplanon inserted 02/14. C/o numbness LT hand since Monday. 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 Denies fever, chills, redness, drainage around incision. Admits arm is very painful. Blurry vision, seeing black spots. States this is her 4th device, first problem. Advised will send precert again, will call by tomorrow. Also forwarding as FYI. STAT referral sent. Will call patient tomorrow, if it is back. * Telephone Encounter - Jennifer Barr - 02/19/2024 9:13 AM EDT Patient called to get nexplanon removed only. The patient does still have caresource. documented in this encounterCapital Region Medical [id number] Telephone encounter Note* Telephone Encounter - Melanie Elliott MA - 02/19/2024 12:39 PM EDT Nexplanon inserted 02/14. C/o numbness LT hand since Monday. 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 Denies fever, chills, redness, drainage around incision. Admits arm is very painful. Blurry vision, seeing black spots. States this is her 4th device, first problem. Advised will send precert again, will call by tomorrow. Also forwarding as FYI. STAT referral sent. Will call patient tomorrow, if it is back. [facility] [id number] Telephone encounter Note* Telephone Encounter - Jennifer Barr - 02/19/2024 9:13 AM EDT Patient called to get nexplanon removed only. The patient does still have caresource. [facility] [id number] History of Present illness Narrative* Eryn Okeefe DO - 02/15/2024 10:45 AM EDTAssociated Order(s): Insertion/Removal of Contraceptive Capsule Post-Procedure Diagnose(s): Nexplanon insertion Images from the original note were not included. Subjective Angela Smith is a 28 y.o. female Chief Complaint Patient presents with Gynecologic Exam Patient present for insertion of Nexplanon. test was negative History of Present Illness Current Outpatient Medications: triamcinolone (Kenalog) 0.1 % ointment, APPLY THIN FILM TWICE A DAY UNTIL SYMTOMS RESOLVE, THEN WEEN TO ONCE A DAY FOR SEVERAL DAYS, THEN EVERY OTHER DAY, THEN STOP, Disp: 30 g, Rfl: 0 albuterol HFA 90 mcg/act inhaler, Inhale 2 puffs every 6 (six) hours if needed., Disp: , Rfl: ibuprofen 600 MG tablet, Take 600 mg by mouth every 6 (six) hours if needed for mild pain or moderate pain, Disp: , Rfl: Vit-Fe Fumarate-FA ( Vitamins) 28-0.8 MG tablet, Take 1 tablet by mouth in the morning., Disp: 30 tablet, Rfl: 11 spironolactone (Aldactone) 50 MG tablet, Take 150 mg by mouth Daily, Disp: , Rfl: Past Medical History: Diagnosis Date Anxiety Asthma, extrinsic with status asthmaticus, unspecified asthma severity ([facility]) Bronchitis Depression ([facility]) Hospitalized Hidradenitis suppurativa History of abnormal cervical Pap smear 05/06/21 neg; 11/23/20 neg, HPV neg; 07/2019 lgsil ,12/24/19 ascus / hpv negative. History of UTI HPV in female Morbid obesity ([facility]) MRSA (methicillin resistant Staphylococcus aureus) Nexplanon insertion 05/2016 Dr. Anton Nexplanon insertion 11/16/2020 Nexplanon removal 09/28/2017 Perianal abscess multiple perianal abscesses Suicide attempt ([facility]) Vaginal infection Past Surgical History: Procedure Laterality Date ACNE SURGERY Cystic Acne X4 BREAST CYST EXCISION Left 05/21/2020 CERVICAL BIOPSY W/ LOOP ELECTRODE EXCISION 11/06/2020 CYST REMOVAL 04/2019 groin and abdominal fold EXCISION Right 08/03/2017 right axillary hidradenitis, [place] EXCISION 02/12/2018 Excision bilateral groin & right axillary hydradenitis EXCISION Left 10/19/2018 groin hidradenitis w/ PCLaff EXCISION Left 11/27/2020 Lt. axillary and breast hidradenitis INCISION AND DRAINAGE hidradenitis INSERTION OF CONTRACEPTIVE CAPSULE 02/15/2024 Nexplanon inserion LABIAPLASTY Right 07/2020 LUBA SKIN LESION EXCISION 06/02/2022 Hidradenitis surgery in right armpit and right groin Family History Problem Relation Name Age of Onset Dementia Mother Other (low blood pressure) Mother Fibromyalgia Mother No Known Problems Sister No Known Problems Daughter Endometriosis Mother's Sister Schizophrenia Mother's Sister Bipolar disorder Mother's Sister Diabetes Paternal Grandmother OB History Para Term AB Living 4 3 3 0 1 3 SAB IAB Ectopic Multiple Live Births 1 0 0 0 3 # Outcome Date GA Lbr Andres/2nd Weight Sex Type Anes PTL Lv 4 Term 10/10/23 39w3d 6 lb 9 oz M Vag-Spont EPI N TYRON 3 Term 08/11/20 39w4d 6 lb 2 oz F Vag-Spont TYRON Comments: IUGR, GDM 2 Term 12/31/15 38w4d 5 lb 15 oz F Vag-Spont TYRON 1 SAB 02/2015 Obstetric Comments Pap 12/22/22- Neg ; 05/19/22- Neg ; H/O LEEP Review of Systems All negative unless documented in treatment Objective Visit Vitals BP 122/72 (BP Location: Right arm) Wt 198 lb No BMI 36.21 kg/m OB Status Unknown Smoking Status Never BSA 1.98 m Allergies Allergen Reactions Morphine Anaphylaxis Penicillin G Sodium Severe swelling, brown urine No trouble breathing per pt Wound Dressing Adhesive Other Reaction(s): Rash OBGyn Exam Insertion/Removal of Contraceptive Capsule Date/Time: 02/15/2024 11:12 AM Performed by: Eryn Okeefe DO Authorized by: Eryn Okeefe DO Consent: Consent obtained: Written Consent given by: Patient Procedural risks discussed: Bleeding and infection Patient questions answered: yes Patient agrees, verbalizes understanding, and wants to proceed: yes Indication: Indication: Insertion of non-biodegradable drug delivery implant Pre-procedure: Prepped with: povidone-iodine Local anesthetic: Lidocaine with epinephrine The site was cleaned and prepped in a sterile fashion: yes Procedure: Procedure: Insertion Small stab incision was made in arm: yes Left/right: Left Preloaded contraceptive capsule trocar was placed subdermally: yes Visualization of implant was obtained: yes Contraceptive capsule was inserted and trocar removed: yes Visualization of notch in stylet and palpation of device: yes Palpation confirms placement by provider and patient: yes Site was closed with steri-strips and pressure bandage applied: yes Comments: LOT: [id number] EXP: 01/2026 ICD-10-CM 1. Nexplanon insertion Z30.017 POCT , urine manually resulted CANCELED: , urine CANCELED: , urine She presents for Nexplanon insertion. Advised abnormal bleeding normal for first 3 months and possible for duration of nexplanon use. She will call office with any problems/concerns or s/s of infection- fevers, chills, redness or drainage at incision site. Entered by Nikki Taylor LPN acting as scribe for Dr. Eryn Okeefe. Signature: Nikki Taylor LPN The documentation recorded by the scribe accurately reflects the service(s) I personally performed and the decisions I made. Signature: Eryn Okeefe DO Assessment & Plan documented in this encounterCapital Region Medical [id number] History of Present illness Narrative* Eryn Okeefe DO - 01/12/2024 11:15 AM EDT Images from the original note were not included. Eryn Okeefe, Obstetrics and Gynecology Angela Neumann [facility] 1995 01/12/24 [id number] Yearly Wellness Exam No chief complaint on file. Visit Vitals BP 122/78 Wt 191 lb LMP 01/09/2024 (Exact Date) BMI 34.93 kg/m OB Status Recent Smoking Status Never BSA 1.95 m History of Present Illness The patient presents for a yearly checkup. She had a positive test on Monday but is not planning to have another child. She is not currently using any form of control, and her partner is considering a vasectomy. She experienced bleeding on Monday following the positive test. She has stopped and is now using formula. She reports difficulty in controlling her bladder and is attempting to manage this with Kegel exercises. Additionally, she mentions that her entire vaginal opening becomes very sore when she experiences back pain. She has a history of hidradenitis and is under the care of Dr. Bunch from Dermatology. She was advised to start Cosentyx but is hesitant due to financial concerns. She notes that her symptoms were mild during and after her but worsened when her menstrual cycle resumed. She has noticed changes in her lesions during her periods, although all her lab results have been normal. She has previously used an implant for control, which has been removed twice. Current Outpatient Medications Medication Sig Dispense Refill spironolactone (Aldactone) 50 MG tablet Take 150 mg by mouth Daily triamcinolone (Kenalog) 0.1 % ointment APPLY THIN FILM TWICE A DAY UNTIL SYMTOMS RESOLVE, THEN WEENTO ONCE A DAY FOR SEVERAL DAYS, THEN EVERY OTHER DAY, THEN STOP 30 g 0 albuterol HFA 90 mcg/act inhaler Inhale 2 puffs every 6 (six) hours if needed. ibuprofen 600 MG tablet Take 600 mg by mouth every 6 (six) hours if needed for mild pain or moderate pain Vit-Fe Fumarate-FA ( Vitamins) 28-0.8 MG tablet Take 1 tablet by mouth in the morning. 30 tablet 11 No current facility-administered medications for this visit. Allergies Allergen Reactions Morphine Anaphylaxis Penicillin G Sodium Severe swelling, brown urine No trouble breathing per pt Wound Dressing Adhesive Other Reaction(s): Rash Past Medical History: Diagnosis Date Anxiety Asthma, extrinsic with status asthmaticus, unspecified asthma severity ([facility]) Bronchitis Depression ([facility]) Hospitalized Hidradenitis suppurativa History of abnormal cervical Pap smear 05/06/21 neg; 11/23/20 neg, HPV neg; 07/2019 lgsil ,12/24/19 ascus / hpv negative. History of UTI HPV in female Morbid obesity ([facility]) MRSA (methicillin resistant Staphylococcus aureus) Nexplanon insertion 05/2016 Dr. Anton Nexplanon insertion 11/16/2020 Nexplanon removal 09/28/2017 Perianal abscess multiple perianal abscesses Suicide attempt ([facility]) Vaginal infection Past Surgical History: Procedure Laterality Date ACNE SURGERY Cystic Acne X4 BREAST CYST EXCISION Left 05/21/2020 CERVICAL BIOPSY W/ LOOP ELECTRODE EXCISION 11/06/2020 CYST REMOVAL 04/2019 groin and abdominal fold EXCISION Right 08/03/2017 right axillary hidradenitis, [place] EXCISION 02/12/2018 Excision bilateral groin & right axillary hydradenitis EXCISION Left 10/19/2018 groin hidradenitis w/ PCLaff EXCISION Left 11/27/2020 Lt. axillary and breast hidradenitis INCISION AND DRAINAGE hidradenitis LABIAPLASTY Right 07/2020 LUBA SKIN LESION EXCISION 06/02/2022 Hidradenitis surgery in right armpit and right groin OB History Para Term AB Living 4 3 3 0 1 3 SAB IAB Ectopic Multiple Live Births 1 0 0 0 3 # Outcome Date GA Lbr Andres/2nd Weight Sex Type Anes PTL Lv 4 Term 10/10/23 39w3d 6 lb 9 oz M Vag-Spont EPI N TYRON 3 Term 08/11/20 39w4d 6 lb 2 oz F Vag-Spont TYRON Comments: IUGR, GDM 2 Term 12/31/15 38w4d 5 lb 15 oz F Vag-Spont TYRON 1 SAB 02/2015 Obstetric Comments Pap 12/22/22- Neg ; 05/19/22- Neg ; H/O LEEP ROS General: Denies fevers/chills Eyes: Denies vision changes ENT: Denies neck stiffness, neck mass Endocrine: Denies polydipsia and polyuria Respiratory: Denies shortness of breath Cardiovascular: Denies chest pain and palpitations Gastrointestinal: Denies changes in bowel habits, blood in stool, constipation and diarrhea. Hematology: Denies easy bruising. Women Only: Denies breast masses, skin changes, nipple discharge, abnormal bleeding, pelvic pain and dyspareunia Genitourinary: Denies dysuria, pelvic pain and nocturia Skin: Denies rashes/lesions Neurologic: Denies headaches, dizziness, syncope Psychiatric: Denies hallucinations, suicidal ideas EXAM GENERAL EXAMINATION: Alert, oriented, well developed, well nourished. HEAD: Normocephalic, atraumatic. EYES: COREEN, sclera anicteric. EARS: No obvious hearing deficit. NECK/THYROID: Neck supple no cervical lymphadenopathy no thyromegaly. LYMPH NODES: No axillary, supraclavicular or inguinal adenopathy. SKIN: Warm and dry. No rashes HEART: Regular rate and rhythm. No murmur LUNGS: Clear to auscultation bilaterally. CHEST: Axillary nodes grossly normal. BREASTS: No dominant masses palpable bilaterally, no skin changes, nipple discharge, supra-clavicular or axillary adenopathy ABDOMEN: Soft, nontender, nondistended, no hernia or masses palpable. BACK: No obvious scoliosis/kyphosis. FEMALE GENITOURINARY: EFG with multiple sores/lesions c/w severe hidradenitis suppurativa, normal vaginal mucosa-no discharge, cervix without lesions, uterus AV, NSSC, no adnexal masses, cul-de-sac negative. EXTREMITIES No edema. NEUROLOGIC: Alert and oriented. PSYCH: Cooperative with exam. ICD-10-CM 1. Abnormal female pelvic exam Z01.411 2. Screening for malignant neoplasm of cervix Z12.4 SENDOUT TEST MISCELLANEOUS [facility] 3. History of loop electrical excision procedure (LEEP) Z98.890 SENDOUT TEST MISCELLANEOUS [facility] 4. History of abnormal cervical Pap smear Z87.42 SENDOUT TEST MISCELLANEOUS [facility] 5. examination or test, positive result Z32.01 POCT , urine manually resulted 6. Hidradenitis suppurativa L73.2 7. General counseling and advice on contraceptive management Z30.09 Assessment & Plan 1. Annual check-up. Her test returned negative results. A Pap smear was performed today. She was advised to conduct self-breast examinations and to ensure adequate intake of calcium and vitamin D. 2. control. She does not want another and is considering a vasectomy for her partner. She prefers theNexplanon implant over other control methods. A Nexplanon device will be reserved for her consideration. She was informed that even after a vasectomy, there is a 3-month period during which is still possible. 3. Hidradenitis suppurativa. She reports an increase in lesions, particularly during her menstrual periods. She is currently under the care of Dr. Aquino in dermatology, who has recommended Cosentyx, but she is unsure about starting it due to financial concerns. She will continue with her current management plan and consider Cosentyx when financially stable. 4. Urinary incontinence. She is experiencing difficulty holding her bladder and is performing Kegel exercises to improve muscle tone post-delivery. She was advised that it will take some time to regain muscle tone. documented in [facility] [id number] Progress note Author -[facility] Soto Bull [facility] October 12, 2023 10:49am Note Date/Time October 12, 2023 10:4 3am [facility] [address] [place] [address] [employer] Progress Note Signed Patient: Angela Smith MR#: [id number] : 1995 Acct:[id number] Age/Sex: 28 / F Adm Date: 4 Loc: 3S Room: 7Y8809-3 Type: ADM IN Attending Dr: Eryn Okeefe DO Copies to: ~ Date of Service: 10/12/2023 OB - PN: Subj Subjective Post Delivery Day #: Day 2 Interval history: Who is G 4 P 3 s/p vaginal delivery who is evaluated on the second day. Patient is concerned that she has not been bleeding as much. Patient also states that she has had some transient shortness of breath lasting a few seconds when she lays back or when she is moving. She states that there is associated back pain.Patient has had an improvement in her lower abdominal pain. Denies fever. Patient has been able to eat and drink normally. Is passing flatus but no bowelmovements. Denies urinary symptoms. Denies chest pain or shortness of breath. Patient states that the baby has been doing okay, though there are concerns thatthe baby is having episodes of tachypnea. She is currently bottlefeeding Patient comments: pain well controlled, tolerating diet and flatus present [employer] baby status: doing well and nursing well feeding status: exclusively breast feeding OB - PN: Obj Exam Physical Exam Vital signs: Vital Signs - 8 hr 10/11/23 23:30 10/11/23 23:30 Blood Pressure [Right Arm] 129/88 Oxygen Delivery Method Room Air Constitutional Constitutional: no acute distress and cooperative HEENT Exam Head: Present normocephalic and atraumatic Eye: Absent conjunctival injection or scleral icterus Respiratory Exam Respiratory: Present CTA bilaterally; Absent accessory muscle use, rales, respiratory distress, rhonchi, stridor, wheezes or crackles Cardiovascular Exam Cardiovascular: Present RRR, S1 and S2; Absent murmur, gallop or rubs Abdominal Exam Abdominal: Present soft and normoactive bowel sounds; Absent tenderness, distended, rebound, guarding or firm Fundus: Present firm (palpated below the umbilicus) Extremities Exam Extremities: Absent cyanosis, clubbing, edema, calf tenderness or Stephanie's sign Back/Spine/Pelvis Exam Back/Spine: Present paraspinal tenderness Back image: 2 1. Skin Exam Skin: Present intact and dry; Absent cyanosis or erythema Neurological Exam Neurological: Present alert and oriented X3 Psychiatric Exam Psychiatric: Present normal affect Urinary Catheter Management Straight: Cath placed during this visit: no Urethral indwelling: No OB - PN: Obj Data Labs 10/11/23 06:06 Assessment/Plan Assessment (1) Status post vaginal delivery: Plan Ms Smith is 28yo G 4 P 3 female 2 days status post uncomplicated vaginal delivery at 39 3/7 weeks. Blues: Patient repots appropriate mood Breast: No breast complaints. Is not Belly: Abdominal pain is controlled. Bottom: Pain is controlled. Continue ibuprofen and tylenol. Bladder: Urinating appropriately. Baby: Baby is doing well vital feeding Bowels: Has had BM. Encourage ambulation and hydration. Continue Colace Bleeding: Lochia appropriate. Predelivery Hgb 11. EBL 100 cc. Postdelivery Hgb 10.2. Asymptomatic. Documented By: CARYL Salgado 10/12/23 06 50 Signed By: <Electronically signed by CARYL Bull> 10/12/23 3809 [facility] Work Phone: 1(406) 513-308906-19-2024 Progress note Author CAITLYN PURVIS [facility] October 11, 2023 9:25am Note Date/Time October 11, 2023 8:37 am [facility] [address] [place] [address] [employer] Progress Note Signed Patient: Angela Smith MR#: [id number] : 1995 Acct:[id number] Age/Sex: 28 / F Adm Date: 4 Loc: Room: [address] [place] [address] Type: ADM IN Attending Dr: Eryn Okeefe DO Copies to: ~ Date of Service: 10/11/2023 OB - PN: Subj Subjective Post Delivery Day #: Day 1 Interval history: Who is G 4 P 3 s/p vaginal delivery who is evaluated on the first day. Patient has complaints of positional pain today. Patient has lower abdominal pain when she is laying back or laying on her stomach. Denies fever. Patient has been able to eat and drink normally. Is passing flatus but no bowel movements. Denies urinary symptoms. Denies chest pain or shortness of breath. Patient states that the baby has been doing okay, though there are concerns thatthe baby is having episodes of tachypnea. She is currently bottlefeeding Patient comments: tolerating diet and flatus present; no pain well controlled (Patient states that the ibuprofen is not helping as much with her lower abdominal pain) feeding status: breast and bottle feeding OB - PN: Obj Exam Physical Exam Vital signs: Vital Signs - 8 hr 10/11/23 00:31 10/11/23 01:30 10/11/23 02:30 Temperature 96.2 F L 98.2 F 97.9 F Pulse Rate 85 80 73 Respiratory Rate 18 18 18 Blood Pressure 105/57 L 101/62 111/55 L 02 Sat by Pulse Oximetry 98 98 99 Oxygen Delivery Method 10/11/23 02:30 10/11/23 06:15 Temperature 98.0 F Pulse Rate 89 Respiratory Rate 18 Blood Pressure 120/82 02 Sat by Pulse Oximetry 98 Oxygen Delivery Method Room Air Constitutional Constitutional: no acute distress and cooperative HEENT Exam Head: Present normocephalic and atraumatic Eye: Absent conjunctival injection or scleral icterus Respiratory Exam Respiratory: Present CTA bilaterally; Absent accessory muscle use, rales, respiratory distress, rhonchi, stridor, wheezes or crackles Cardiovascular Exam Cardiovascular: Present RRR, S1 and S2; Absent murmur, gallop or rubs Abdominal Exam Abdominal: Present soft and normoactive bowel sounds; Absent tenderness, distended, rebound, guarding or firm Fundus: Present firm (Fell below the umbilicus) Extremities Exam Extremities: Absent cyanosis, clubbing, edema, calf tenderness or Stephanie's sign Skin Exam Skin: Present intact and dry; Absent cyanosis or erythema Neurological Exam Neurological: Present alert and oriented X3 Psychiatric Exam Psychiatric: Present normal affect; Absent depressed or anxious Urinary Catheter Management Straight: Cath placed during this visit: no OB - PN: Obj Data Labs 10/11/23 06:06 Labs: 10/11/23 06:06: Uncorrected WBC Count 17.8 H, MCV 81.8, MCH 27.2, MCHC 33.2, RDW14.1, Plt Count 392, MPV 9.1, Neut % (Auto) 68.8, Lymph % (Auto) 20.5, [place] % (Auto) 9.6, Eos % (Auto) 0.7, Baso % (Auto) 0.4, Nucleat RBC Rel Count 0.1, Neut# (Auto) 12.2 H, Lymph # (Auto) 3.6, [place] # (Auto) 1.7 H, Eos # (Auto) 0.1, Baso# (Auto) 0.1 10/10/23 07:25: RPR w/Rflx to Titer Non reactive, Blood Type O Positive Assessment/Plan Assessment (1) Status post vaginal delivery: Plan Ms Newyear is 28yo G 4 P 3 female 1 day status post uncomplicated vaginal delivery at 39 3/7 weeks. Blues: Patient repots appropriate mood Breast: No breast complaints. Is not Belly: Abdominal pain is controlled. Bottom: Pain is controlled. Continue ibuprofen and tylenol. Bladder: Urinating appropriately. Baby: Baby is doing well vital feeding Bowels: No BM. Encourage ambulation and hydration. Continue Colace Bleeding: Lochia appropriate. Predelivery Hgb 11. EBL 100 cc. Postdelivery Hgb 10.2. Asymptomatic. Plan Vaginal delivery plan (if applicable): routine care Documented By: CAITLYN PURVIS MD 10/11/23 0830 Signed By: <Electronically signed by MD CAITLYN PURVIS> 10/11/23 0925 [facility] Work Phone: 1(532) 794-962106-18-2024 [facility] Evaluation + Plan note Diagnostic Tests Pending * SARS-CoV-2 Antibody, IgG [facility]ments Appointment Date:04/09/2024 10:20:00 AM Scheduled Provider:DIGNA HIRSCH CNP Location:[facility] Appointment Type:[facility] Evaluation noteNo assessment information available [facility] Work Phone: Evaluation note* Diagnosis Onset Date Resolution Status Status post vaginal delivery acute [facility] Work Phone: Evaluation note* Diagnosis Nexplanon insertion- Primary documented in this encounter [facility]* Diagnosis General counseling and advice on contraceptive management- Primary Other general counseling and advice for contraceptive management Nexplanon in place Hidradenitis suppurativa Hidradenitis Nexplanon removal Pain and numbness of left upper extremity Encounter for Nexplanon removal [facility]* Diagnosis Vulvar irritation documented in this encounter [facility]* Diagnosis Abnormal female pelvic exam- Primary Screening for malignant neoplasm of cervix Screening for malignant neoplasm of the cervix History of loop electrical excision procedure (LEEP) History of abnormal cervical Pap smear examination or test, positive result Hidradenitis suppurativa Hidradenitis General counseling and advice on contraceptive management Other general counseling and advice for contraceptive management documented in this encounter [facility]* Diagnosis Fall, initial encounter- Primary Right hand pain Pain in soft tissues of limb Right wrist pain Pain in joint, forearm Sprain and strain of right hand Fall, initial encounter Right hand pain Pain in soft tissues of limb Right wrist pain Pain in joint, forearm [facility] Narrative No data available for this section [facility] No data available for this section [facility] Discharge instructions Additional Instructions DISCHARGE INSTRUCTIONS FOR PLASTIC/RECONSTRUCTIVE SURGERY YOUR ACTIVITY MAY INCLUDE -Going up and down stairs slowly. -Walking around the house or outside if the weather is satisfactory. -No driving until you are seen in our office and cleared for driving. -No lifting more than 10 pounds for 2 weeks from the date of surgery. WOUND CARE -NO smoking as it may compromise your wound healing. -Remove your dressing as instructed. -Sutures will be removed at your post-operative visit. Apply Bacitracin to area 3 times a day. -Keep your incision dry for 48 hours then, you may shower (no tub baths) and allow water to flow over your incision. -It is common to feel pulling or sharp sticking sensations in the area of the incision. PLEASE NOTIFY OUR OFFICE at [phone] if you: -Develop a fever of 101 degrees Fahrenheit, or higher. -Have increasing pain. -See redness or swelling around the incision. MEDICATION -Medications per Medication Reconciliation List. -Over the counter medications such as Acetaminophen and others may be used as directed for pain unless prescription was provided. Do NOT exceed 4 grams of Acetaminophen in a 24 hour period. -DO NOT use ibuprofen or NSAIDs unless directed by physician, as they may increase risk of bleeding. OTHER INSTRUCTIONS -No smoking as this increases post-operative complication rate. FOLLOW UP -Call the office at [phone] for a follow up appointment 1 week. * AFTER HOURS PHONE NUMBER [phone] *[facility] Work Phone: Hospital Discharge instructions Additional Instructions DISCHARGE INSTRUCTIONS FOR PLASTIC/RECONSTRUCTIVE SURGERY YOUR ACTIVITY MAY INCLUDE -Going up and down stairs slowly. -Walking around the house or outside if the weather is satisfactory. -No driving until you are seen in our office and cleared for driving. -No lifting more than 10 pounds for 4 weeks from the date of surgery. WOUND CARE -NO smoking as it may compromise your wound healing. - - -Remove your dressing as instructed. -Apply Bacitracin to area 3 times a day. -Keep your incision dry for 48 hours then, you may shower (no tub baths) and allow water to flow over your incision. - -It is common to feel pulling or sharp sticking sensations in the area of the incision. PLEASE NOTIFY OUR OFFICE at [phone] if you: -Develop a fever of 101 degrees Fahrenheit, or higher. -Have increasing pain. -See redness or swelling around the incision. MEDICATION -Medications per Medication Reconciliation List. -Over the counter medications such as Acetaminophen and others may be used as directed for pain unless prescription was provided. Do NOT exceed 4 grams of Acetaminophen in a 24 hour period. -DO NOT use ibuprofen or NSAIDs unless directed by physician, as they may increase risk of bleeding. OTHER INSTRUCTIONS -No smoking as this increases post-operative complication rate. FOLLOW UP -Call the office at [phone] for a follow up appointment as needed. * AFTER HOURS PHONE NUMBER [phone] *[facility] Work Phone: Progress note No data available for this section [facility] Summary Purpose Family History No Family History Records Found Relationship Condition Age at Onset Recorded Date/T corby Not Specified Malignant neoplasm of cervix Unknown Hypotension Unknown father Alcohol dependence Unknown Hypertension Unknown Advance Directives No Advanced Directives Records Found Advance Directive Response Recorded Date/ Time Advance Directives No December 9:07am Advance Directive Response Recorded Date/ Time Advance Directives No December 8:07am Chief Complaint and Reason for Visit Chief Complaint Hydradenitis Hydradenitis Hydradenitis Chief Complaint Hydradenitis Hydradenitis Chief Complaint Hydradenitis Hydradenitis Hydratenitis Chief Complaint Hydradenitis Hydradenitis Hydratenitis Hydratenitis Chief Complaint o99.810 Chief Complaint o99.810 34 WKS PREG WATER BROKE Chief Complaint o99.810 34 WKS PREG WATER BROKE Z36.85 39 wks Iup Reason for Visit Status post vaginal delivery Additional Source Comments INFORMATION SOURCE (unrecogn ized section and content) DATE CREATED AUTHOR 09/11/2021 [facility] dical Specialist DATE CREATED AUTHOR AUTHOR'S ORGANIZ ATION 02/14/2022 Beck[facility] ical Center DATE CREATED AUTHOR AUTHOR'S ORGANIZ ATION 10/21/2023 [facility] DATE CREATED AUTHOR AUTHOR'S ORGANIZ ATION 04/08/2024 [facility] DATE CREATED AUTHOR AUTHOR'S ORGANIZ ATION 04/10/2024 Beckett King [facility] ical Center DATE CREATED AUTHOR AUTHOR'S ORGANIZ ATION 04/22/2024 [facility] dical Specialists [facility] DATE CREATED AUTHOR AUTHOR'S ORGANIZ ATION 05/05/2024 [facility] DATE CREATED AUTHOR AUTHOR'S ORGANIZ ATION 06/08/2024 Beckett King [facility] ical Center Care Teams (unrecognized sec tion and content) Team Status: Inactive Member Role Status Dates Laz Ferrari DO Primary Care Provider Active Tye Rubio MD Attending Provider Active Team Status: Active Member Role Status Dates Laz Ferrari DO Primary Care Provider Active Team Status: Inactive Member Role Status Dates Laz Ferrari DO Primary Care Provider Active Start: July 22, 2023 End: July 22, 2023 Eryn Okeefe DO Attending Provider Active Sta rt: July 22, 2023 End: July 22, 2023 Team Status: Inactive Member Role Status Dates Laz Ferrari DO Primary Care Provider Active Start: September 01, 2023 End: September 01, 2023 Soto Bull MD Attending Provider Active St art: September 01, 2023 End: September 01, 2023 Team Status: Inactive Member Role Status Dates Eryn Okeefe DO Attending Provider Active Sta rt: September 15, 2023 End: September 15, 2023 Team Status: Active Member Role Status Dates PHYSICIAN NO FAMILY Primary Care Provider Active Team Status: Inactive Member Role Status Dates Eryn Okeefe DO Attending Provider Active Sta rt: September 15, 2023 End: September 15, 2023 PHYSICIAN NO FAMILY Primary Care Provider Active Start: September 15, 2023 End: September 15, 2023 Team Status: Inactive Member Role Status Dates PHYSICIAN NO FAMILY Primary Care Provider Active Start: October 10, 2023 End: October 12, 2023 Eryn Okeefe DO Admit Provider, Attjillian buenoing Provider Active Start: October 10, 2023 End: October 12, 2023 Blood Bank Technologist Relationship Specialty Start Date End Date Unallocated, Hussain Judd [facility] [place] [address] PCP - General Family Medicine 10/13/23 Blood Bank Technologist Relationship Specialty Start Date End Date Unallocated, Hussain Judd MD [facility] [place] [address] PCP - General Family Medicine 10/13/23 Blood Bank Technologist Relationship Specialty Start Date End Date Unallocated, Hussain Judd MD [facility] [place] [address] PCP - General Family Medicine 10/13/23 Blood Bank Technologist Relationship Specialty Start Date End Date Unallocated, Hussain Judd MD [facility] [place] [address] PCP - General Family Medicine 10/13/23 Blood Bank Technologist Relationship Specialty Start Date End Date Unallocated, Hussain Judd MD [facility] [place] [address] PCP - General Family Medicine 10/13/23 Blood Bank Technologist Relationship Specialty Start Date End Date Unallocated, Hussain Judd MD [facility] [place] [address] PCP - General Family Medicine 10/13/23 Goals (unrecognized section and content) Goals may be documented in a n alternate section Reason for Visit (unrecogniz ed section and content) Reason Comments Gynecologic Exam Patient present for insertion of Nexplanon. test was negative Specialty Diagnoses / Procedures Referred By Torrie keller Referred To Contact Obstetrics and Gynecology Diagnoses Encounter for contraceptive management, unspecified Procedures ID INSERTION DRUG DELIVERY IMPLANT ID ETONOGESTREL IMPLANT SYSTEM Eryn Okeefe, [address] [place] [address] Phone: tel: fax: Eryn Okeefe, DO [address] [place] [address] Phone: tel: fax: Referral ID Status Reason Start Date Expiration Date Visits Re quested Visits Authorized [id number] Closed 01/15/2024 07/13/2024 1 1 Reason Comments Contraception Specialty Diagnoses / Procedures Referred By Contac t Referred To Contact Obstetrics and Gynecology Diagnoses Encounter for contraceptive management, unspecified Procedures ID REMOVAL NON-BIODEGRADABLE DRUG DELIVERY IMPLANT Eryn Okeefe, DO [address] [place] [address] Phone: tel: fax: Eryn Okeefe, DO [address] [place] [address] Phone: tel: fax: Referral ID Status Reason Start Date Expiration Date V isits Requested Visits Authorized [id number] Closed Perform Procedure 02/19/2024 08/17/2024 1 1 Reason Comments Med Refill FOR RECORDS PERTAINING TO PATIENTS WHO ARE OR HAVE BEEN ENROLLED IN A CHEMICAL DEPENDENCY/SUBSTANCEABUSE PROGRAM, SOME INFORMATION MAY BE OMITTED. This clinical summary was aggregated from multiple sources. Caution should be exercised in using it in the provision of clinical care. This summary normalizes information from multiple sources, and as a consequence, information in this document may materially change the coding, format and clinical context of patient data. In addition, data may be omitted in some cases. CLINICAL DECISIONS SHOULD BE BASED ON THE PRIMARY CLINICAL RECORDS. [facility]. provides no warranty or guarantee of the accuracy or completeness of information in this document.
--- NOTE | 2024-06-09 06:54 | CT_ITS ---
The [address] [address] Patient Name: ANGELA SMITH MRN: [id number] date: 1995 Sex: F Assigned Patient Location: ER Current Patient Location: ER Accession/Order Number: [id number] Exam Date: 06/09/2024 08:07 Report Date: 06/09/2024 08:28 At the request of: WELLINGTON BURNETT Procedure: CT head/brain wo con EXAM: CT head/brain wo con CLINICAL INDICATION: dizzy, disoriented COMPARISON: CT head 06/05/2024. TECHNIQUE: Axial CT images of the brain were obtained without contrast. Coronal and sagittal reformats were obtained. Dose reduction techniques were achieved by using automated exposure control and/or adjustment of mA and/or kV according to patient size and/or use of iterative reconstruction technique. 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 No intracranial hemorrhage, extra-axial fluid collection, hydrocephalus, midline shift, or other mass effect. Patent basal cisterns. No calvarial fracture. Normal soft tissues. Trace left maxillary sinus mucosal thickening. Remainder of the paranasal sinuses are well-aerated. 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 These are new since 06/05/2024. Critical results were NOTIFIED by TELEPHONE BY Dr. Elizabeth Lopez DO to Dr. Aponte At 06/09/2024 8:27 AM EST. Electronically authenticated by: ELIZABETH LOPEZ Date: 06/09/2024 08:28
--- NOTE | 2024-06-09 06:55 | ED.GENADUL1 ---
HPI HPI - General Adult General Chief complaint: Dizziness Stated complaint: vomiting Time Seen by Provider: 06/09/24 06:48 Source: patient Mode of arrival: ambulance Limitations: no limitations History of Present Illness HPI narrative: 29-year-old female to the emergency department with chief complaint of dizziness, cough, nausea, vomiting. She reports symptoms began a week ago. She was told she had a bad sinus infection. She has been taking medications but not improving. She reports the dizziness continues. She reports that she feels disoriented at times. She believes that she might of had some blood in her vomit today. She called 911 and met EMS at the street. Related Data Home Medications ?Medication ?Instructions ?Recorded ?Confirmed norethindrone 1 mg-ethinyl 1 tab PO DAILY 06/05/24 06/09/24 estradiol 20 mcg (21)-iron 75 mg (7) tablet (Aurovela Fe 1-20 (28)) Previous Rx's ?Medication ?Instructions ?Recorded ytprxozmyqueggw-sorkuwxuenpuvau-OT 10 ml PO Q6H PRN cold symptoms 06/05/24 2 mg-30 mg-10 mg/5 mL oral syrup #200 mL (Bromfed DM) levofloxacin 750 mg tablet 750 mg PO DAILY 10 days #10 tabs 06/05/24 meclizine 25 mg chewable tablet 25 mg PO QID PRN dizziness #12 tabs 06/05/24 (Antivert) ondansetron 4 mg disintegrating 4 mg PO Q6H PRN nausea and 06/05/24 tablet vomiting #12 tabs prednisone 20 mg tablet 20 mg PO TID #15 tabs 06/06/24 ypwbysftgj-lthmsdjqxzenx-lycwkyxt 1 cap PO Q6H PRN headache #20 caps 06/07/24 50 mg-300 mg-40 mg capsule (Fioricet) meclizine 25 mg tablet 12.5 mg (1/2 x 25 mg) PO TID PRN 06/07/24 dizziness #20 tabs metoclopramide HCl 5 mg tablet 5 mg PO Q6H PRN nausea and 06/07/24 (Reglan) vomiting #14 tabs Allergies Allergy/AdvReac Type Severity Reaction Status Date / Time morphine Allergy Severe Anaphylaxis Verified 06/09/24 06:49 Penicillins Allergy Severe Anaphylaxis Verified 06/09/24 06:49 Opioid HPI Opioid Management Most Recent Opioid Data: Last Pain Scale 2 06/07/24 21:24 06/07/24 Last Pain Assessment 06/06/24 17:05 Last ED Pain Assessment 06/07/24 21:24 Last ORT Total Score 1 06/06/24 06:46 06/06/24 Last ORT Risk Category Low Risk 06/06/24 06:46 06/06/24 Ur Phencyclidine Scrn Negative (NEGATIVE) 06/05/24 20:30 06/05/24 Review of Systems ROS Status of ROS 10 or more systems reviewed and unremarkable except as noted in history and below [facility] Family History Grandfather Family history of stroke Social History Within the past year, how often did you have a drink containing alcohol: 2-4 times a month Within the past year, how many standard drinks containing alcohol did you have on a typical day: 3 or 4 Within the past year, how often did you have six or more drinks on one occasion: never Total score: 2 Score interpretation: A score of 3 or more indicates drinking is likely to affect patient's safety. Smoking status: Never smoker Non-prescribed substance use: denies use Highest level of school completed/degree received: high school graduate Are you now , , , , never or living with a partner: living with partner Little interest or pleasure in doing things: not at all Feeling down, depressed, or hopeless: not at all Feel stressed/tense/nervous/anxious/difficulty sleeping: not at all Do you think of yourself as: straight/heterosexual Gender Identity: female Exam Narrative Exam Narrative: VITALS: I have reviewed the triage vital signs. GENERAL: Well developed, well appearing adult female in no acute distress. NEURO: Alert and oriented. Moves all extremities. Face is symmetric and expressive. EYES: PERRL. No scleral icterus or conjunctival injection. No discharge. HENT: Normocephalic, atraumatic. Hearing is grossly intact. Nares grossly patent and without discharge. Mucous membranes moist. NECK: No JVD. Patient moves neck without restriction. CARDIO: Rhythm regular. Normal rate. No murmur, rub, or gallop. Pulses equal bilaterally in the upper and lower extremity. No lower extremity edema. PULM: Lungs clear to auscultation in all olivares. No wheezes, rales, or rhonchi. No conversational dyspnea. No splinting, stridor, or accessory muscle use. GI/: Abdomen is soft and non-tender. Normoactive bowel sounds. EXTREMITIES: Symmetric muscle bulk. No joint swelling. No clubbing, cyanosis, or deformity. SKIN: Warm and dry. Normal turgor. No rash or lesions appreciated. PSYCH: Anxious Constitutional Vital Signs, click to edit/add: Last Vital Signs Temp 97.9 F 06/09/24 06:45 Pulse 112 H 06/09/24 06:45 Resp 16 06/09/24 06:45 BP 147/96 H 06/09/24 06:45 Pulse Ox 97 06/09/24 06:45 O2 Del Method Room Air 06/09/24 06:45 Course Vital Signs Vital signs: Vital Signs Temperature 97.9 F 06/09/24 06:45 Pulse Rate 112 H 06/09/24 06:45 Respiratory Rate 16 06/09/24 06:45 Blood Pressure 147/96 H 06/09/24 06:45 Pulse Oximetry 97 06/09/24 06:45 Oxygen Delivery Method Room Air 06/09/24 06:45 Temperature 97.9 F 06/09/24 06:45 Pulse Rate 112 H 06/09/24 06:45 Respiratory Rate 16 06/09/24 06:45 Blood Pressure 147/96 H 06/09/24 06:45 Pulse Oximetry 97 06/09/24 06:45 Oxygen Delivery Method Room Air 06/09/24 06:45 Medical Decision Making [facility] Narrative Medical decision making narrative: 29-year-old female to the emergency department with chief complaint of flulike illness. Vital stable, the patient is afebrile. She is neurologically intact and appropriate. There is no meningismus. She is very anxious on exam. Basic labs, imaging of her head due to her reported disorientation is ordered. Symptomatic medications. Care was signed out to Dr. Aponte. Discharge Plan Discharge Chief Complaint: Dizziness Patient Disposition: Still a Patient Prescriptions / Home Meds: No Action norethindrone-e.estradiol-iron [Aurovela Fe 1-20 (28)] 1 mg-20 mcg (21)/75 mg (7) tablet 1 tab PO DAILY levofloxacin 750 mg tablet 750 mg PO DAILY 10 Days Qty: 10 0RF jnapsebbfinmowi-vrucebwfr-MN [Bromfed DM] 2-30-10 mg/5 mL syrup 10 ml PO Q6H PRN (Reason: cold symptoms) Qty: 200 0RF ondansetron 4 mg tablet,disintegrating 4 mg PO Q6H PRN (Reason: nausea and vomiting) Qty: 12 0RF meclizine [Antivert] 25 mg tablet,chewable 25 mg PO QID PRN (Reason: dizziness) Qty: 12 0RF prednisone 20 mg tablet 20 mg PO TID Qty: 15 0RF metoclopramide HCl [Reglan] 5 mg tablet 5 mg PO Q6H PRN (Reason: nausea and vomiting) Qty: 14 0RF faerjedoat-bhiwtlzragwtq-pspc [Fioricet] 50-300-40 mg capsule 1 cap PO Q6H PRN (Reason: headache) Qty: 20 0RF meclizine 25 mg tablet 12.5 mg PO TID PRN (Reason: dizziness) Qty: 20 0RF Print Language: Kinyarwanda Referrals: Annette Boothe [employer] [Primary Care Provider] - 1 week
[2024-06-09 07:06] LABS: Basophils Percent Auto 0.3 % (0.2-2.0); Eosinophils Absolute Auto 0.1 10^3/uL (0.0-0.7); Hematocrit 41.5 % (36.0-48.0); Hemoglobin 13.3 g/dL (12.0-16.0); Immature Granulocytes Abs Auto 0.05 10^3/uL (0.00-0.03); Immature Granulocytes Pct Auto 0.4 % (0.0-0.5); Lymphocytes Absolute Auto 1.8 10^3/uL (1.2-3.8); Lymphocytes Percent Auto 14.7 % (20.5-60.0); Mean Corpuscular Hemoglobin 26.7 pg (26.7-34.0); Mean Corpuscular Volume 83.3 fL (81.0-99.0); Mean Platelet Volume 10.5 fL (9.5-13.5); Monocytes Absolute Auto 1.4 10^3/uL (0.3-0.8); Monocytes Percent Auto 11.2 % (1.7-12.0); Neutrophils Percent Auto 72.4 % (43.0-75.0); Platelet Count 337 10^3/uL (150-450); Red Blood Count 4.98 10^6/uL (4.20-5.40); White Blood Count 12.5 10^3/uL (4.0-11.0)
[2024-06-09] MEDS: 0.9 % SODIUM CHLORIDE 1,000 ML 999 ML IV (07:46)
[2024-06-09] MEDS: ONDANSETRON PF 4 MG/2 ML VIAL IV (07:47)
[2024-06-09] MEDS: FAMOTIDINE/PF 20 MG/2 ML VIAL IV (07:47)
[2024-06-09 07:50] LABS: Alanine Aminotransferase 42 U/L (14-59); Albumin Globulin Ratio 0.8; Albumin Level 3.3 g/dL (3.4-5.0); Alkaline Phosphatase 102 U/L (46-116); Anion Gap 19.3; Aspartate Amino Transferase 41 U/L (15-37); BUN Creatinine Ratio 8.4; Bilirubin Total 0.4 mg/dL (0.2-1.0); Calcium 8.7 mg/dL (8.5-10.1); Carbon Dioxide 14.1 mmol/L (21.0-32.0); Chloride 107 mmol/L (98-107); Estimated GFR (African America >60 (>=60 mL/min/1.73m^2); Estimated GFR (Non-African Ame >60 (>=60 mL/min/1.73m^2); Globulin 4.1 g/dL; Glucose 93 mg/dL (74-106); Potassium 3.4 mmol/L (3.5-5.1); Sodium 137 mmol/L (136-145); Total Protein 7.4 g/dL (6.4-8.2); Troponin I High Sensitivity <4.0 pg/mL (4.0-51.3)
[2024-06-09 07:53] LABS: HCG Quantitative 2 mIU/mL
[2024-06-09] MEDS: KETOROLAC TROMETHAMINE 30 MG/ML VIAL IVP (08:18)
--- NOTE | 2024-06-09 08:27 | CT_ITS ---
The [address] [address] Patient Name: ANGELA SMITH MRN: [id number] date: 1995 Sex: F Assigned Patient Location: ER Current Patient Location: ER Accession/Order Number: [id number] Exam Date: 06/09/2024 08:49 Report Date: 06/09/2024 09:30 At the request of: THONG CHEN Procedure: CT angio neck EXAM: CT angio head, CT angio neck HISTORY: abn CT COMPARISON: CT head performed the same day and reported separately. TECHNIQUE: Postcontrast CTA imaging of the head and neck was performed with coronal and sagittal reformats. Maximum intensity projection and 3-D reformats were performed on a separate workstation. NASCET criteria was utilized. This CT exam was performed using one or more of the following dose reduction techniques: Automated exposure control, adjustment of the MA and/or kV according to patient size, or use of iterative reconstruction technique. FINDINGS: Motion artifact mildly degrades evaluation of the superior neck arterial vasculature. Aortic arch: Imaged portion shows no evidence of aneurysm. No significant stenosis of the major origins of the major arch vessels. Right carotid system: No evidence of significant (50% or greater) stenosis or occlusion. Left carotid system: No evidence of significant (50% or greater) stenosis or occlusion. Vertebral arteries: Codominant. No evidence of significant (50% or greater) stenosis or occlusion. Anterior circulation: No evidence of aneurysm, significant stenosis, or occlusion. Hypoplastic left A1 anterior cerebral artery segment. Vertebrobasilar system: No evidence of aneurysm, significant stenosis, or occlusion. Grossly normal enhancement involving the visualized portions of the posterior inferior cerebellar arteries and anterior inferior cerebellar arteries. Venous sinuses: Grossly patent. Additional findings: Visualized portion of the lungs are clear. CT/CT angio neck IMPRESSION: No visible large vessel occlusion, aneurysm or hemodynamically significant stenosis involving the neck or intracranial arteries. Specifically no evidence for overt occlusion involving the posterior inferior anterior inferior cerebellar arteries. No specific findings to explain bilateral cerebellar infarcts. Electronically authenticated by: NIVIA NAJERA Date: 06/09/2024 09:30
--- NOTE | 2024-06-09 08:27 | CT_ITS ---
The [address] [address] Patient Name: ANGELA SMITH MRN: [id number] date: 1995 Sex: F Assigned Patient Location: ER Current Patient Location: ER Accession/Order Number: [id number] Exam Date: 06/09/2024 08:49 Report Date: 06/09/2024 09:30 At the request of: THONG CHEN Procedure: CT angio head EXAM: CT angio head, CT angio neck HISTORY: abn CT COMPARISON: CT head performed the same day and reported separately. TECHNIQUE: Postcontrast CTA imaging of the head and neck was performed with coronal and sagittal reformats. Maximum intensity projection and 3-D reformats were performed on a separate workstation. NASCET criteria was utilized. This CT exam was performed using one or more of the following dose reduction techniques: Automated exposure control, adjustment of the MA and/or kV according to patient size, or use of iterative reconstruction technique. FINDINGS: Motion artifact mildly degrades evaluation of the superior neck arterial vasculature. Aortic arch: Imaged portion shows no evidence of aneurysm. No significant stenosis of the major origins of the major arch vessels. Right carotid system: No evidence of significant (50% or greater) stenosis or occlusion. Left carotid system: No evidence of significant (50% or greater) stenosis or occlusion. Vertebral arteries: Codominant. No evidence of significant (50% or greater) stenosis or occlusion. Anterior circulation: No evidence of aneurysm, significant stenosis, or occlusion. Hypoplastic left A1 anterior cerebral artery segment. Vertebrobasilar system: No evidence of aneurysm, significant stenosis, or occlusion. Grossly normal enhancement involving the visualized portions of the posterior inferior cerebellar arteries and anterior inferior cerebellar arteries. Venous sinuses: Grossly patent. Additional findings: Visualized portion of the lungs are clear. CT/CT angio head IMPRESSION: No visible large vessel occlusion, aneurysm or hemodynamically significant stenosis involving the neck or intracranial arteries. Specifically no evidence for overt occlusion involving the posterior inferior anterior inferior cerebellar arteries. No specific findings to explain bilateral cerebellar infarcts. Electronically authenticated by: NIVIA NAJERA Date: 06/09/2024 09:30
[2024-06-09] MEDS: MECLIZINE HCL 12.5 MG TABLET 25 MG PO (08:37)
[2024-06-09 08:55] LABS: Bilirubin Urine NEGATIVE (NEGATIVE); Blood Urine SMALL (NEGATIVE); Clarity Urine CLEAR (CLEAR); Color Urine LT. YELLOW (YELLOW); Glucose Urine UA NEGATIVE (NEGATIVE); Ketones Urine 15 mg/dL (NEGATIVE); Leukocyte Esterase Urine NEGATIVE (NEGATIVE); Nitrite Urine NEGATIVE (NEGATIVE); Protein Urine NEGATIVE (NEG/TRACE); Urobilinogen Urine 0.2 EU/dL (0.2-1.0); pH Urine 5.5 (5.0-9.0)
[2024-06-09 09:05] LABS: Bacteria Urine NONE SEEN #/HPF (NONE SEEN); Mucus Urine NONE SEEN (NONE SEEN); RBC Urine 0-2 #/HPF (0-2); WBC Urine NONE SEEN #/HPF (NONE SEEN)
[2024-06-09 09:06] LABS: Squamous Epithelial Cell Urine FEW #/LPF (NONE/RARE); Urine Culture Indicated NO
--- NOTE | 2024-06-09 09:13 | PC.NURSE ---
Swallowing assessed at this time. Pt having no issues currently
--- NOTE | 2024-06-09 09:45 | ED.GENADUL1 ---
HPI HPI - General Adult General Chief complaint: Dizziness Stated complaint: vomiting Time Seen by Provider: 06/09/24 06:48 Source: patient Mode of arrival: ambulance Limitations: no limitations History of Present Illness HPI narrative: 29-year-old female presents for dizziness and was initially seen by Dr. Elliott and signed out to me after discussing the case with him thoroughly. Please see his full history and physical exam Related Data Home Medications ?Medication ?Instructions ?Recorded ?Confirmed norethindrone 1 mg-ethinyl 1 tab PO DAILY 06/05/24 06/09/24 estradiol 20 mcg (21)-iron 75 mg (7) tablet (Aurovela Fe 1-20 (28)) Previous Rx's ?Medication ?Instructions ?Recorded gcksfiohpldnpch-humhrfherrzbpcy-XG 10 ml PO Q6H PRN cold symptoms 06/05/24 2 mg-30 mg-10 mg/5 mL oral syrup #200 mL (Bromfed DM) levofloxacin 750 mg tablet 750 mg PO DAILY 10 days #10 tabs 06/05/24 meclizine 25 mg chewable tablet 25 mg PO QID PRN dizziness #12 tabs 06/05/24 (Antivert) ondansetron 4 mg disintegrating 4 mg PO Q6H PRN nausea and 06/05/24 tablet vomiting #12 tabs prednisone 20 mg tablet 20 mg PO TID #15 tabs 06/06/24 gavvrnqzie-nagyndwknwrdf-tmlbschp 1 cap PO Q6H PRN headache #20 caps 06/07/24 50 mg-300 mg-40 mg capsule (Fioricet) meclizine 25 mg tablet 12.5 mg (1/2 x 25 mg) PO TID PRN 06/07/24 dizziness #20 tabs metoclopramide HCl 5 mg tablet 5 mg PO Q6H PRN nausea and 06/07/24 (Reglan) vomiting #14 tabs Allergies Allergy/AdvReac Type Severity Reaction Status Date / Time morphine Allergy Severe Anaphylaxis Verified 06/09/24 06:49 Penicillins Allergy Severe Anaphylaxis Verified 06/09/24 06:49 Opioid HPI Opioid Management Most Recent Opioid Data: Last Pain Scale 2 06/07/24 21:24 06/07/24 Last Pain Assessment 06/06/24 17:05 Last ED Pain Assessment 06/07/24 21:24 Last ORT Total Score 1 06/06/24 06:46 06/06/24 Last ORT Risk Category Low Risk 06/06/24 06:46 06/06/24 Ur Phencyclidine Scrn Negative (NEGATIVE) 06/05/24 20:30 06/05/24 PFSH PFSH Family History Grandfather Family history of stroke Social History Within the past year, how often did you have a drink containing alcohol: 2-4 times a month Within the past year, how many standard drinks containing alcohol did you have on a typical day: 3 or 4 Within the past year, how often did you have six or more drinks on one occasion: never Total score: 2 Score interpretation: A score of 3 or more indicates drinking is likely to affect patient's safety. Smoking status: Never smoker Non-prescribed substance use: denies use Highest level of school completed/degree received: high school graduate Are you now , , , , never or living with a partner: living with partner Little interest or pleasure in doing things: not at all Feeling down, depressed, or hopeless: not at all Feel stressed/tense/nervous/anxious/difficulty sleeping: not at all Do you think of yourself as: straight/heterosexual Gender Identity: female Exam Constitutional Vital Signs, click to edit/add: Last Vital Signs Temp 97.9 F 06/09/24 06:45 Pulse 103 H 06/09/24 09:00 Resp 10 L 06/09/24 09:00 BP 131/97 H 06/09/24 09:00 Pulse Ox 100 06/09/24 09:00 O2 Del Method Room Air 06/09/24 06:45 Course Vital Signs Vital signs: Vital Signs Temperature 97.9 F 06/09/24 06:45 Pulse Rate 112 H 06/09/24 06:45 Respiratory Rate 16 06/09/24 06:45 Blood Pressure 147/96 H 06/09/24 06:45 Pulse Oximetry 97 06/09/24 06:45 Oxygen Delivery Method Room Air 06/09/24 06:45 Temperature 97.9 F 06/09/24 06:45 Pulse Rate 103 H 06/09/24 09:00 Respiratory Rate 10 L 06/09/24 09:00 Blood Pressure 131/97 H 06/09/24 09:00 Pulse Oximetry 100 06/09/24 09:00 Oxygen Delivery Method Room Air 06/09/24 06:45 Medical Decision Making MDM Narrative Medical decision making narrative: CT scan shows bilateral cerebellar strokes which were not present on CAT scan from June 05, 4 days ago. CTA per radiologist shows no large vessel occlusion. I have discussed the case with Dr. Monson at [facility] and he accepts the patient in transfer. She is stable and agreeable for transfer. Differential Diagnosis Differential Diagnosis: Stroke, labyrinthitis, vertigo Lab Data Lab results reviewed: Yes I reviewed the patient's lab results Labs: Lab Results 06/09/24 06/09/24 Range/Units 06:54 08:40 WBC 12.5 H (4.0-11.0) 10^3/uL RBC 4.98 (4.20-5.40) 10^6/uL Hgb 13.3 (12.0-16.0) g/dL Hct 41.5 (36.0-48.0) % MCV 83.3 (81.0-99.0) fL MCH 26.7 (26.7-34.0) pg MCHC 32.0 (29.9-35.2) g/dL RDW 15.0 (11.0-15.0) % Plt Count 337 (150-450) 10^3/uL MPV 10.5 (9.5-13.5) fL Neut % (Auto) 72.4 (43.0-75.0) % Lymph % (Auto) 14.7 L (20.5-60.0) % Piatt % (Auto) 11.2 (1.7-12.0) % Eos % (Auto) 1.0 (0.9-7.0) % Baso % (Auto) 0.3 (0.2-2.0) % Neut # (Auto) 9.0 H (1.4-6.5) 10^3/uL Lymph # (Auto) 1.8 (1.2-3.8) 10^3/uL Piatt # (Auto) 1.4 H (0.3-0.8) 10^3/uL Eos # (Auto) 0.1 (0.0-0.7) 10^3/uL Baso # (Auto) 0.0 (0.0-0.1) 10^3/uL Abs Immat Gran (auto) 0.05 H (0.00-0.03) 10^3/uL Imm/Tot Granulo (auto) 0.4 (0.0-0.5) % Sodium 137 (136-145) mmol/L Potassium 3.4 L (3.5-5.1) mmol/L Chloride 107 (98-107) mmol/L Carbon Dioxide 14.1 L (21.0-32.0) mmol/L Anion Gap 19.3 BUN 8.0 (7.0-18.0) mg/dL Creatinine 0.95 (0.55-1.02) mg/dL Est GFR ( Amer) >60 (>=60 mL/min/1.73m^2) Est GFR (Non-Af Amer) >60 (>=60 mL/min/1.73m^2) BUN/Creatinine Ratio 8.4 Glucose 93 (74-106) mg/dL Calcium 8.7 (8.5-10.1) mg/dL Total Bilirubin 0.4 (0.2-1.0) mg/dL AST 41 H (15-37) U/L ALT 42 (14-59) U/L Alkaline Phosphatase 102 (46-116) U/L Troponin I High Sens <4.0 L (4.0-51.3) pg/mL Total Protein 7.4 (6.4-8.2) g/dL Albumin 3.3 L (3.4-5.0) g/dL Globulin 4.1 g/dL Albumin/Globulin Ratio 0.8 Lipase 30.0 (16.0-77.0) U/L HCG, Quant 2 mIU/mL Urine Color Lt. yellow (YELLOW) Urine Clarity Clear (CLEAR) Urine pH 5.5 (5.0-9.0) Ur Specific Needles 1.020 (1.005-1.025) Urine Protein Negative (NEG/TRACE) mg/dL Urine Glucose (UA) Negative (NEGATIVE) mg/dL Urine Ketones 15 A (NEGATIVE) mg/dL Urine Occult Blood Small A (NEGATIVE) Urine Nitrite Negative (NEGATIVE) Urine Bilirubin Negative (NEGATIVE) Urine Urobilinogen 0.2 (0.2-1.0) EU/dL Ur Leukocyte Esterase Negative (NEGATIVE) Urine RBC 0-2 (0-2) #/HPF Urine WBC None seen (NONE SEEN) #/HPF Ur Squamous Epith Cells Few A (NONE/RARE) #/LPF Urine Bacteria None seen (NONE SEEN) #/HPF Urine Mucus None seen (NONE SEEN) Ur Culture Indicated? No Imaging Data CT scan - head: Radiologist's impression: ITS Impressions Chest X-Ray 06/09/24 06:50 IMPRESSION: Unremarkable AP erect portable chest radiograph. Electronically authenticated by: SID DRAPER Date: 06/09/2024 08:[address] 06/09/24 06:54 IMPRESSION: Acute/subacute nonhemorrhagic infarcts in the bilateral cerebellar hemispheres with mass effect on the fourth ventricle. These are new since 06/05/2024. Critical results were NOTIFIED by TELEPHONE BY Dr. Elizabeth Lopez, DO to Dr. Aponte At 06/09/2024 8:27 AM EST. Electronically authenticated by: ELIZABETH LOPEZ Date: 06/09/2024 08:28 Head CTA 06/09/24 08:27 IMPRESSION: No visible large vessel occlusion, aneurysm or hemodynamically significant stenosis involving the neck or intracranial arteries. Specifically no evidence for overt occlusion involving the posterior inferior anterior inferior cerebellar arteries. No specific findings to explain bilateral cerebellar infarcts. Electronically authenticated by: NIVIA NAJERA Date: 06/09/2024 09:30 Neck CTA 06/09/24 08:27 IMPRESSION: No visible large vessel occlusion, aneurysm or hemodynamically significant stenosis involving the neck or intracranial arteries. Specifically no evidence for overt occlusion involving the posterior inferior anterior inferior cerebellar arteries. No specific findings to explain bilateral cerebellar infarcts. Electronically authenticated by: NIVIA NAJERA Date: 06/09/2024 09:30 ECG Data Attestation: I personally reviewed and interpreted this ECG as follows: (EKG on my interpretation shows sinus rhythm with a rate of 91 and no acute change) Discharge Plan Discharge Chief Complaint: Dizziness Clinical Impression: CVA (cerebral vascular accident) Patient Disposition: [facility] Time of Disposition Decision: 09:44 Discharge Location: [facility] Condition: Fair Mode of Transportation: EMS
[2024-06-09] MEDS: LORAZEPAM 2 MG/ML VIAL 0.5 MG IV (10:13)
== END 2024-06-09 11:50 | disposition short-term general hospital (02) ==
PROVIDERS: Student in an Organized Health Care Education/Training Program; Emergency Provider Emergency Medicine; PCP Nurse Practitioner Family
DX: I63.9 Cerebral infarction, unspecified (principal); R47.1 Dysarthria and anarthria; R27.0 Ataxia, unspecified; R29.703 NIHSS score 3; R11.2 Nausea with vomiting, unspecified
CPT/HCPCS: 36415; 70450; 70496; 70498; 71045; 80053; 81001; 83690; 84484; 84702; 85025; 93005; 96361; 96374; 96375; 99285; J1885; J2060; J2405; J3490; Q9967

== ENCOUNTER 2024-07-11 11:06 | Outpatient (RCR) | payer OTHER, SELFPAY | END 2024-09-04 11:09 | disposition home or self-care (01) | LOC: OT 11:06 | PROVIDERS: PCP Nurse Practitioner Family; Visit Provider Nurse Practitioner Family | DX: M79.601 Pain in right arm (principal) | CPT/HCPCS: 97014; 97035; 97140; 97165; 97530 ==

== ENCOUNTER 2024-09-18 11:01 | Outpatient (RCR) | payer OTHER, SELFPAY | END 2024-11-23 14:08 | disposition home or self-care (01) | LOC: OT 11:01 | PROVIDERS: PCP Nurse Practitioner Family; Visit Provider Nurse Practitioner Family | DX: I63.9 Cerebral infarction, unspecified (principal) | CPT/HCPCS: 97110; 97166; 97530 ==

== ENCOUNTER 2024-09-27 15:45 | Outpatient (REF) | payer OTHER, SELFPAY ==
--- OUTSIDE RECORDS SUMMARY | 2023-10-18 05:09 | XMS_ITS | Continuity of Care Document ---
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 [place] Name Role Phone Sary WALDROP Johnny Unavailable Unavailable Allergies, Adverse Reactions, Alerts Substance Reaction Status Criticality Penicillins Active No Information morphine Trouble Breathing Active No Informa tion Procedures Procedure Date Extract; Erupted Th/exposted Rt 018 Extract; Erupted Th/exposted Rt 018 Comp Oral Eval New/estab Patient 2017 Intraoral-complete Series (bw) 18 Oral Hygiene Instruction OFFICE/OUTPATIENT VISIT, [facility] Advance Directives Directive Yes / No Effective Date File Name No Information Encounters Encounter Description Practice Location Reason(s) For Visit Diagnoses Date Provider Providers Copied on Encounter [facility], [address] [place] [address], [id number] , tel:[phone] [facility] No Information 4 Sary Pablo. [address] [place] [address], [id number], [place]. tel:[phone] [facility], [address] [place] [address], [id number] , tel:[phone] Dental Clinic Encounter for screening for dental disorders 0201 8 Zeferino Rosenbaum. [address] [place] [address], [id number], [place]. tel:[phone] [facility], [address] [place] [address], [id number] , [place] tel: [phone] Dental Clinic dental new (chief complaint) Encounter for screening for dental disorder 8 Careysimin Dillardrachaelsueomi. [address] [place], [address], [place]. tel:[phone] OFFICE/OUTPA TIENT VISIT, [facility], [address] [place], [place], [id number] , tel: [phone] [facility] est care (chief complaint) cyst on back (chief complaint) Pilonidal cyst 4 Hemjaquan Bustamante. [address] [place] [address], [id number], [place]. Family History Family Member Type Diagnosis Age At Onset Father Problem (finding) asthma Mother Problem (finding) migraine Mother Problem (finding) Allergies Mother Problem (finding) Alive and well Sister Problem (finding) Alive and well Payers Payer name Insurance type Covered libertarian ID Rosette pringle(s) D Medicaid [facility] [id number] D Medicaid [facility] [id number] Social History Type Description Quantity Date Captured Comments Alcohol Use Details Unknown Caffeine Use Details Unknown Tobacco Use Status Smoking Status No Information Sex Female Sexual Orientation Straight or heterosexual Gender Identity Female Chief Complaint And Reason For Visit No Information Reason For Referral Reason For Referral No Information Plan Of Treatment Date Type Action Status Goal Tdap. Due on due Goal RLP. Due on due Goal Tdap Vaccine. Due on 2023 due Goal PAP. Due on due Goal Hep A. Due on du e Goal Unhealthy drug use screening . Due on due Goal Influenza vaccine. Due on Ju due Goal PRAPARE ASSESSMENT. Due on J due Goal Depression screening. Due on due Goal Hepatitis C screening. Due o n due Goal Tobacco cessation counseling completed Referral Ordered: General Surgery. ordered History Of Present Illness Encounter Date Complaint History Of Prese nt Illness dental new dental new, esta b dental care, wisdom teeth pain Functional Status Date Functional Assessmen t No Information Instructions Date Instruction Additional Infor mation No Information Assessments Type Assessment Date No Information Patient Care Teams Name Effective Dates (start - stop) Status Members No Information
--- OUTSIDE RECORDS SUMMARY | 2024-09-17 15:02 | XMS_ITS | Encounter Summary ---
Author Organization [employer] [facility] tem Address [id number] [address] [place] [address] Care Team Providers Care Computer System Specialist Name Role Phone Annette Boothe WEDDING FLORIST-CHIEF SAFETY OFFICER Primary Care Provider + Reason for Visit * Reason Comments Chest Pain Shortness of Breath Encounter Details Date Type Department Care Team (Late st Contact Info) Description 09/17/2024 3:02 PM EDT - 09/17/2024 4:03 PM EDT Emergency [facility] -Emergency Department [address] [facility] [place] [phone] Donis Guerrero MD [address] [place] [address] Upper respiratory tract infection, unspecified type (Primary Dx) Discharge Disposition: Home Social History Tobacco Use Types Packs/Day Years Used Date Smoking Tobacco: Former Cigarettes 0.3 9.1 2 016 - 06/05/2024 Smokeless Tobacco: Never Alcohol Use Standard Drinks/Week Comments Yes 2 (1 standard drink = 0.6 oz pur e alcohol) [facility] Utilities Answer Date Recorded In the past 12 months has [employer], gas, oil, or water company threatened to shut off services in your home? No 08/16/2024 AUDIT-C Answer Date Recorded Q1: How often do you have a drink containing alc ohol? 2-3 times a week 08/16/2024 Q2: How many drinks containi ng alcohol do you have on a typical day when you are drinking? 3 or 4 08/16/2024 Q3: How often do you have si x or more drinks on one occasion? Less than monthly 08/16/2024 PHQ-2 Answer Date Recorded Total Score 2 08/16/2024 PRAPARE - Transportation Answer Date Re corded In the past 12 months, has l ack of transportation kept you from medical appointments or from getting medications? No 07/24 In the past 12 months, has l ack of transportation kept you from meetings, work, or from getting things needed for daily living? No 08/16/2024 Housing Instability Answer Date Recorde d Are you worried or concerned that in the next two months you may not have stable housing that you own, rent or stay in as a part of a household? No 08/16/2024 Hunger Screening Answer Date Recorded Within the past 12 months we worried whether our food would run out before we got money to buy more. Never True 09/17/2024 Within the past 12 months th e food we bought just didn't last and we didn't have money to get more. Never True 09/17/2024 Comments No Sex and Gender Information Value Date Recorded Sex Assigned at Not on file Legal Sex Female 9:38 AM EST Gender Identity Not on file Sexual Orientation Not on file documented as of this encounter Last Filed Vital Signs Vital Sign Reading Time Taken Comments Blood Pressure 115/82 09/17/2024 3:45 PM EDT Pulse 85 09/17/2024 2:22 PM EDT Temperature 36.7 C (98.1 F) 09/17/2024 2:22 PM EDT Respiratory Rate 16 09/17/2024 3:31 PM EDT Oxygen Saturation 100% 09/17/2024 4:00 PM EDT Inhaled Oxygen Concentration - - Weight 92.1 kg (203 lb) 09/17/2024 2:22 PM EDT Height 160 cm (5' 3 ) 09/17/2024 2:22 PM EDT Body Mass Index 35.96 09/17/2024 2:22 PM EDT documented in this encounter Discharge Instructions * Discharge Instructions* Donis Guerrero MD - 09/17/2024 3:50 PM EDT If you have worsening cough, shortness for breath, chest pain, new or concerning symptoms please return for re-evaluation. Call primary care for follow-up in the next several days. * Attachments The following attachments cannot be sent through Care Everywhere. * Upper respiratory infection in adults ??? ED discharge instructions (Guatemalan) documented in this encounter Medications at Time of Discharge acetaminophen (TYLENOL) 325 mg tablet Take 2 tablets (650 mg total) by mouth every 6 (six) hours as needed for headaches. 30 tablet 06/12/2024 albuterol (PROVENTIL HFA;VENTOLIN HFA) 90 mcg/actuation inhaler Inhale 2 puffs every 6 (six) hours as needed for wheezing or shortness of breath (cough). aspirin 81 mg Take 1 tablet (81 mg total) by mouth in the morning. 90 tablet 06/12/2024 clindamycin (CLEOCIN) 300 mg capsule Take 1 capsule (300 mg total) by mouth in the morning and 1 capsule (300 mg total) at noon and 1 capsule (300 mg total) in the evening and 1 capsule (300 mg total) before bedtime. 08/23/2024 clopidogreL (PLAVIX) 75 mg tablet Take 1 tablet (75 mg total) by mouth in the morning. 30 tablet 3 08/12/2024 fluticasone propionate (FLOVENT HFA) 44 mcg/actuation inhaler Inhale 2 puffs 2 (two) times a day as needed (Shortness of breath, coughing, or wheezing.). meclizine (ANTIVERT) 25 mg tablet Take 1 tablet (25 mg total) by mouth 3 (three) times a day. 30 tablet 08/17/2024 documented as of this encounter ED Notes * Donis Guerrero MD - 09/17/2024 3:18 PM EDT Images from the original note were not included. [facility] -EMERGENCY DEPARTMENT Pt Name: Juany Hawk Birthdate: 1995 Chief Complaint: Chief Complaint Patient presents with Chest Pain Shortness of Breath History of Present Illness: Patient healthy well-appearing 29 year female presents with cough congestion. Patient is worried she got sick from her primary care provider. She got sick from her over a week ago and was on a Z-Carlos got better and then she was re- exposed and sick again. She is mostly worried about strep bronchitis pneumonia. No fevers no chills. Patient has a history of a stroke and PFO. She is on blood thinner Plavix. She has had no fever no chills. Patient has no history of lung disease. Patient recently quitsmoking. Patient is in no distress. Patient denies taking any medicine. She had some upper chest discomfort neck discomfort. History provided by: Patient and medical records Past Medical History: Past Medical History: Diagnosis Date Asthma Stroke ([facility] 06/09/2024 Past Surgical History: Past Surgical History: Procedure Laterality Date Diagnostic cerebral angiogram N/A 06/11/2024 Performed by William Patterson MD at [facility] Intracardiac echocardiogram N/A 09/06/2024 Performed by Bhavya Burton MD at [facility] Neuro Invasive N/A 06/11/2024 Performed by William aPtterson MD at [facility] Patent foramen ovale closure with cath/patch N/A 09/06/2024 Performed by Bhavya Burton MD at [facility] Structural Heart Procedure N/A 09/06/2024 Performed by Bhavya Burton MD at [facility] Family History: Family History Problem Relation Age of Onset Alzheimer's disease Mother Other Problem (other) Mother Fatty Liver Disease Asthma Father Social History: Social History Socioeconomic History Marital status: Single Tobacco Use Smoking status: Former Current packs/day: 0.00 Average packs/day: 0.3 packs/day for 9.1 years (2.3 ttl pk-yrs) Types: Cigarettes Start date: 2015 Quit date: 06/05/2024 Years since quittin.2 Smokeless tobacco: Never Vaping Use Vaping status: Never Used Substance and Sexual Activity Alcohol use: Yes Alcohol/week: 2.0 standard drinks of alcohol Types: 2 Standard drinks or equivalent per week Drug use: Never Sexual activity: Yes Partners: Male control/protection: Coitus interruptus Other Topics Concern Caffeine Use No Social Drivers of Health Food Insecurity: No Food Insecurity (09/17/2024) Hunger Screening Food Insecurity - Worry: Never True Food Insecurity - Inability: Never True Transportation Needs: No Transportation Needs (08/16/2024) PRAPARE - Transportation Lack of Transportation (Medical): No Lack of Transportation (Non-Medical): No Interpersonal Safety: Not At Risk (08/16/2024) Humiliation, Afraid, Rape, and Kick questionnaire Fear of Current or Ex-Partner: No Emotionally Abused: No Physically Abused: No Sexually Abused: No Housing Instability: Low Risk (08/16/2024) Housing Instability Housing Instability: No Review of Systems: Review of Systems Physical Exam: ED Triage Vitals Temp Heart Rate Resp BP SpO2 09/17/24 1422 09/17/24 1422 09/17/24 1422 09/17/24 1423 09/17/24 1422 36.7 ??C (98.1 ??F) 85 22 96/52 100 % Temp Source Heart Rate Source Patient Position BP Location FiO2 (%) 09/17/24 1422 09/17/24 1422 09/17/24 1422 09/17/24 1422 -- Oral Pulse Ox Sitting Right arm Vitals: 09/17/24 1422 09/17/24 1423 BP: 96/52 Temp: 36.7 ??C (98.1 ??F) TempSrc: Oral Pulse: 85 Resp: 22 SpO2: 100% Height: 160 cm (5' 3 ) Weight: 92.1 kg (203 lb) Physical Exam Vitals reviewed. Constitutional: Comments: BMI 35.96 HENT: Head: Normocephalic and atraumatic. Eyes: Conjunctiva/sclera: Conjunctivae normal. Cardiovascular: Rate and Rhythm: Normal rate. Heart sounds: Normal heart sounds. Pulmonary: Effort: Pulmonary effort is normal. Breath sounds: Normal breath sounds. Abdominal: General: There is no distension. Palpations: Abdomen is soft. Musculoskeletal: General: Normal range of motion. Cervical back: Normal range of motion and neck supple. Skin: General: Skin is warm and dry. Neurological: General: No focal deficit present. Mental Status: She is alert and oriented to person, place, and time. GCS: GCS eye subscore is 4. GCS verbal subscore is 5. GCS motor subscore is 6. Procedure: Procedures Re-evaluation: Re-Evaluation Medical Decision Making Patient well-appearing 29-year-old presents for cough shortness a breath. Patient is worried that she got an illness from her provider. She had similar symptoms last week after her provider was ill. She came here got a Z-Carlos felt better but then she saw her provider again and feels sick again. She has a history of a stroke and a PFO. She is on Plavix can not take anti- inflammatories. No fevers nochills she is in no distress. She has diffuse chest discomfort upper back discomfort from coughing.She has no wheezing. Lung sounds are clear neck is supple no lymphadenopathy oropharynx has no erythema edema no exudate Tms have no erythema or bulging. Patient did not take any medication for symptoms. She quit smoking this year. Patient will be medicated with Tylenol be checked for COVID flu RSVstrep chest x-ray rule out pneumonia. DD: Viral illness strep throat bronchitis pneumonia. Amount and/or Complexity of Data Reviewed Labs: ordered. Radiology: ordered. Decision-making details documented in ED Course. ECG/medicine tests: ordered. Risk OTC drugs. ED Course: ED Course as of 09/17/24 1559 e September 17, 2024 155 X-ray chest 1 view No infiltrates [GB] ED Course User Index [GB] LONG Spencer Clinical Impressions as of 09/17/24 1559 Upper respiratory tract infection, unspecified type . ED Disposition None I, Dr. Guerrero personally performed a [id number]-ou-faxw diagnostic evaluation on this patient. I personally made and approved the management plan for this patient and take responsibility for the patient management. Additional Notes/Findings: Juany Hawk is a 29 y.o. female presenting to the ED for chief complaint of URI symptoms. Exam findings as follows: Constitutional: Awake and alert HENT: Head normocephalic and atraumatic Eyes: conjunctiva unremarkable Cardiovascular: Heart rate regular Pulmonary: Easy work of breathing, speaking full sentences Abdominal: Flat and non-distended Skin: Warm and dry Musculoskeletal: Moving all extremities spontaneously Please note that portions of this note were completed with a voice recognition program. Efforts were made to edit the dictations but occasionally words are mis-transcribed. LONG Spencer 09/17/24 1532 LONG Spencer 09/17/24 1716 Donis Guerrero MD 09/24/24 1240 * Tammie Samano RN - 09/17/2024 2:22 PM EDT Pt reports worsening CP and SOB since seeing her PCP who was ill on Monday. documented in this encounter Plan of Treatment Upcoming Encounters Date Type Department Care Team (Late st Contact Info) Description 10/03/2024 10:00 AM EDT Office Visit [facility] [address] [place] [phone] Eduar Cuenca MD [address] [place] [address] 12/06/2024 11:30 AM EDT Telemedicine [facility] [address] [place] [phone] Tong Daniel MD [address] [place] [address] documented as of this encounter Goals Goal Patient Goal Type Associated Problems Recent Progress Patient-Stated? Author home General Yes Babs Chaudhry, FORREST Note: Evaluation of progress towards goal: Return home with self care and support from sign other documented as of this encounter Procedures Procedure Name Priority Date/Time Associated Diagnosis Comments POCT RAPID STREP A Routine 09/17/2024 3: 32 PM EDT XR CHEST 1 VW STAT 09/17/2024 3:21 PM EDT SARS/FLU A+B/RSV BY NAAT/MOLECULAR (M4RT COLLECTION TUBE) STAT 09/17/2024 2:26 PM EDT ECG 12-LEAD STAT 09/17/2024 2:18 PM EDT documented in this encounter Results * POCT rapid strep A (09/17/2024 3:32 PM EDT) POC Rapid Strep Screen Negative Negative 09/17/2024 9:14 PM EDT [facility] 09/17/2024 3:32 PM EDT 09/17/2024 9:13 PM EDT us Jenna E Bullimore WEDDING FLORIST-CHIEF SAFETY OFFICER POINT OF CARE TEST O RDERABLES Final Result [facility] [address] [place] [address], [place] * X-ray chest 1 view (09/17/2024 3:21 PM EDT) Anatomical Region Laterality Modality Body, Chest N/A Computed Radiogr aphy 09/17/2024 3:25 PM EDT Narrative 09/17/2024 3:25 PM EDT EXAM: XR CHEST 1 VW CLINICAL INFORMATION: Shortness of breath. COMPARISON: None. FINDINGS: There are no pleural effusions. The lungs are clear and well aerated. Heart size is within normal limits. IMPRESSION: 1. No acute cardiopulmonary disease. Finalized by All Puente MD on 09/17/2024 3:25 PM Procedure Note All Puente MD - 09/17/2024 EXAM: XR CHEST 1 VW CLINICAL INFORMATION: Shortness of breath. COMPARISON: None. FINDINGS: There are no pleural effusions. The lungs are clear and well aerated.Heart size is within normal limits. IMPRESSION: 1. No acute cardiopulmonary disease. Finalized by All Puente MD on 09/17/2024 3:25 PM us Donis Guerrero MD IMG DIAGNOSTIC IMAGING ORDERA BLES Final Result * SARS/FLU A+B/RSV by NAAT/Molecular (M4RT Collection Tube) (09/17/2024 2:26 PM EDT) FLU A PCR Negative Negative 09/17/2024 3:15 PM EDT [facility] FLU B PCR Negative Negative 09/17/2024 3:15 PM EDT [facility] RSV BY PCR Negative Negative 09/17/2024 3:15 PM EDT [facility] SARS COV 2 BY PCR Not Detected Not Detected 09/17/2024 3:15 PM EDT [facility] Swab Nasopharyngeal structure / Unknown 09/17/2024 2:26 PM EDT 09/17/2024 2:31 PM EDT [facility] - 09/17/2024 3:15 PM EDT The Xpert Xpress SARS-CoV-2/Flu/RSV Plus test is a rapid, multiplexed real-time RT-PCR test intended for the simultaneous qualitative detection and differentiation of SARS-CoV-2, influenza A, influenza B and respiratory syncytial virus (RSV) viral RNA from individuals suspected of respiratory viral infection consistent with COVID-19 by Their healthcare provider. This test has not been validated in asymptomatic patients. The Xpert Xpress SARS-CoV-2 test is intended for use by qualified and trained operators who are performing tests using either Dock[employer] DX or 3yy game platform systems and is limited to laboratories that meet the CLIA requirements to perform high and moderate complexity tests. The Xpert Xpress SARS-CoV-2/Flu/RSV Plus is only for use under the Food and Drug Administration's Emergency Use Authorization. Results are for the simultaneous detection and differentiation of SARS-CoV-2, influenza A, influenza B and RSV nucleic acids in clinical specimens. SARS-CoV-2, influenza A, influenza B and RSV RNA identified by this test are generally detectable in upper respiratory samples during the acute phase of infection. Positive results are Indicative of the presence of the identified virus, but do not rule out bacterial infection or co-infection with other pathogens not detected by this test. Clinical correlation with patient history and other diagnostic information is necessary to determine patient infection status. The agent detected may not be the definite cause of disease. Negative results do not preclude SARS-CoV-2, influenza A, influenza B and RSV infection and should not be used as the sole basis for treatment or other patient management decisions. Negative results must be combined with clinical observations, patient history and epidemiological information. An Invalid result may occur with specimen-associated inhibition unable to be resolved with specimen repeat. Fact Sheet for Healthcare Providers: https://www.fda.gov/media/146015/download Fact Sheet for Patients: https://www.fda.gov/media/088599/download Donis Guerrero MD MICROBIOLOGY - GENERAL ORDERA BLES Final Result Performing Organization Address City/[facility]/ZIP Co de Phone Number [facility] [address] [place] [address], [place] * ECG 12 lead (09/17/2024 2:18 PM EDT) 09/17/2024 2:18 PM EDT Narrative [facility] - 09/17/2024 3:07 PM EDT Donis Guerrero MD ECG ORDERABLES Final Result Performing Organization Address [facility]/ZIP Co de Phone Number [facility] documented in this encounter Visit Diagnoses Diagnosis Upper respiratory tract infection, unspecified type- Primary documented in this encounter Administered Medications Inactive Administered Medications - up to 3 most recent administrations Medication Order MAR Action Action Date Dose Rate Site acetaminophen (TYLENOL EXTRA STRENGTH) tablet 1,000 mg 1,000 mg, oral, Once, On Mon09/17/24 at 1520, For 1 dose Given 09/17/2024 3:29 PM EDT 1,000 mg documented in this encounter Active and Recently Administered Medications Times are shown in EDT. Scheduled Medication Order 09/15/2024 09/16/2024 09/17/2024 acetaminophen (TYLENOL EXTRA STRENGTH) tablet 1,000 mg (COMPLETED) 1,000 mg, oral, Once, On Mon09/17/24 at 1520, For 1 dose 1529 (Given - Provid er: Emerson Ma RN) documented in this encounter Additional Health Concerns Assessment Noted Time PHQ-9 Depression Total Score: 2 08/17/19 4:45 PM EDT documented as of this encounter Care Teams Computer System Specialist Relationship Specialty Start Date End Date Annette Boothe, DARRIAN-CHIEF SAFETY OFFICER [address] [place] [address] PCP - General Family Medicine 06/09/24 documented as of this encounter
--- OUTSIDE RECORDS SUMMARY | 2024-09-27 15:47 | XMS_ITS | Encounter Summary ---
Author Organization [facility] tem Address [id number] [address] [place] [address] Care Team Providers Care Systems Operator Name Role Phone Tl, Annette [employer] STUDIES PROFESSOR-RECRUITMENT DIRECTOR Primary Care Provider + Reason for Visit * Reason Onset Date Comments weird feeling 07/12/2024 Encounter Details Date Type Department Care Team (Late st Contact Info) Description 07/12/2024 [facility] [address] [place] [address] Allison Graham feeling Social History Tobacco Use Types Packs/Day Years Used Date Smoking Tobacco: Former Cigarettes Alcohol Use Standard Drinks/Week Comments Not Currently 0 (1 standard drink = 0.6 oz pur e alcohol) rare C Utilities Answer Date Recorded In the past 12 months has [employer], gas, oil, or water [employer] threatened to shut off services in your home? No 06/09/2024 AUDIT-C Answer Date Recorded Q1: How often do you have a drink containing alc ohol? Monthly or less 06/09/2024 Q2: How many drinks containi ng alcohol do you have on a typical day when you are drinking? 1 or 2 06/09/2024 Q3: How often do you have si x or more drinks on one occasion? Never 06/09/2024 PHQ-2 Answer Date Recorded Total Score 0 06/09/2024 PRAPARE - Transportation Answer Date Re corded In the past 12 months, has l ack of transportation kept you from medical appointments or from getting medications? No 05/25 In the past 12 months, has l ack of transportation kept you from meetings, work, or from getting things needed for daily living? No 06/09/2024 Housing Instability Answer Date Recorde d Are you worried or concerned that in the next two months you may not have stable housing that you own, rent or stay in as a part of a household? No 06/09/2024 Hunger Screening Answer Date Recorded Within the past 12 months we worried whether our food would run out before we got money to buy more. Never True 06/10/2024 Within the past 12 months th e food we bought just didn't last and we didn't have money to get more. Never True 06/10/2024 Comments No Sex and Gender Information Value Date Recorded Sex Assigned at Not on file Legal Sex Female 9:38 AM EST Gender Identity Not on file Sexual Orientation Not on file documented as of this encounter Miscellaneous Notes * Telephone Encounter - Allison Graham - 07/12/2024 1:58 PM EDT Patient called and stated she spoke with her PCP about a new symptom she is having and PCP advised her to call and inform her neurologist. 2 days ago on 07/10 the patient had a weird feeling of something moving up the back of her neck into her head and then it happened again yesterday 07/11. She asked for a call back at [phone] * Telephone Encounter - Any Sky PA-C - 07/12/2024 1:58 PM EDT This is unlikely stroke related. Please advise on BE FAST and reasons to come for the ER to be reassessed, but can otherwise follow up as already scheduled with Dr. Beard * Telephone Encounter - Verito Ramos CMA - 07/12/2024 1:58 PM EDT Called pt to inform what was noted below. Pt states she has been experiencing this headache since she had stroke, and she has not been taking acetaminophen because a neurologist at [facility] told her not to take it until it resolves itself. She is no longer experiencing the weird feeling described below, but she states it felt like a bad blood flow that traveled from bottom of the neck to the top of the head, causing a bad headache during that. It started from L side and traveled over to R side. Pt states she wants the clinical staff to be aware of what she experienced. Aging Room Hand rescheduled patient's appointment to 07/18. Pt is to address this at the visit, but this encounter is for FYI. documented in this encounter Plan of Treatment Upcoming Encounters Date Type Department Care Team (Late st Contact Info) Description 10/03/2024 10:00 AM EDT Office Visit [facility] [address] [place] [phone] Eduar Cuenca MD [address] [place] [address] 12/06/2024 11:30 AM EDT Telemedicine [facility] [address] [place] [phone] Tong Daniel MD [address] [place] [address] documented as of this encounter Visit Diagnoses Not on filedocumented in this encounter Additional Health Concerns Assessment Noted Time PHQ-9 Depression Total Score: 0 06/09/19 3:50 PM EST documented as of this encounter Care Teams Systems Operator Relationship Specialty Start Date End Date Annette Boothe APRN-RECRUITMENT DIRECTOR [address] [place] [address] PCP - General Family Medicine 06/09/24 documented as of this encounter
--- OUTSIDE RECORDS SUMMARY | 2024-09-27 15:47 | XMS_ITS | Encounter Summary ---
Author Organization [employer] tem Address [facility] [id number] [address] [place] [address] Care Team Providers Care Distribution Center Supervisor Name Role Phone Tl Annette RED CAP-MINERAL WOOL INSULATION SUPERVISOR Primary Care Provider + Encounter Details Date Type Department Care Team (Latest Contact Info) Description 09/17/2024 Travel Social History Tobacco Use Types Packs/Day Years Used Date Smoking Tobacco: Former Cigarettes 0.3 9.1 2 016 - 06/05/2024 Smokeless Tobacco: Never Alcohol Use Standard Drinks/Week Comments Yes 2 (1 standard drink = 0.6 oz pur e alcohol) [facility] Utilities Answer Date Recorded In the past 12 months has [employer], gas, oil, or water [employer] threatened to shut off services in your [...] on file documented as of this encounter Plan of Treatment Upcoming Encounters Date Type Department Care Team (Late st Contact Info) Description 10/03/2024 10:00 AM EDT Office Visit [facility] [address] [place] [phone] Eduar Cuenca MD [address] [place] [address] 12/06/2024 11:30 AM EDT Telemedicine [facility] [address] [place] [phone] Tong Daniel MD [address] [place] [address] documented as of this encounter Goals Goal Patient Goal Type Associated Problems Recent Progress Patient-Stated? Author home General Yes Babs Chaudhry, RN Note: Evaluation of progress towards goal: Return home with self care and support from sign other documented as of this encounter Visit Diagnoses Not on filedocumented in this encounter Additional Health Concerns Assessment Noted Time PHQ-9 Depression Total Score: 2 08/17/19 25 4:45 PM EDT documented as of this encounter Care Teams Distribution Center Supervisor Relationship Specialty Start Date End Date Annette Boothe, RED CAP-MINERAL WOOL INSULATION SUPERVISOR [address] [place] [address] PCP - General Family Medicine 06/09/24 documented as of this encounter
--- OUTSIDE RECORDS SUMMARY | 2024-09-27 15:47 | XMS_ITS | Clinical Summary ---
Author Organization [facility] Address [address] [place] [address] Care Team Providers Care Financial Service Representative Name Role Phone Unavailable Primary Care Provider Unavailabl e Allergies Active Allergy Reactions Criticality Noted Date Comments Morphine 11/24/2021 Penicillins 11/24/2021 Medications BENZOYL PEROXIDE 5 % external wash WASH AFFECTED AREAS ON TRUNK AND EXTREMITIES DAILY IN SHOWER 2 Active clindamycin (CLEOCIN T) 1 % lotion APPLY TO AFFECTED AREAS ON UNDERARMS, UNDER BREAST, AND GROIN TWICE DAILY NEEDED 2 Active doxycycline hyclate (VIBRAMYCIN) 100 MG capsule TAKE 1 CAPSULE BY MOUTH EVERY 12 HOURS FOR 10 DAYS 2 Active spironolactone (ALDACTONE) 50 MG tablet TAKE 3 TABLETS BY MOUTH EVERY DAY 2 Active fluticasone (FLONASE) 50 MCG/ACT nasal sprayIndications :Non-seasonal allergic rhinitis, unspecified trigger 1 spray by Each Nostril route in the morning. 32 g 1 2 Active Active Problems Problem Noted Date Diagnosed Date Non-seasonal allergic rhinitis 11/24/2021 Referred otalgia of both ears 11/24/2021 Social History Tobacco Use Types Packs/Day Years Used Date Smoking Tobacco: Never Smokeless Tobacco: Never Tobacco Cessation:Counseling Given: No Comments Unknown Sex and Gender Information Value Date Recorded Sex Assigned at Not on file Legal Sex Female 10:18 AM EDT Gender Identity Not on file Sexual Orientation Not on file Last Filed Vital Signs Vital Sign Reading Time Taken Comments Blood Pressure 106/78 11/24/2021 9:47 AM EDT Pulse 80 11/24/2021 9:47 AM EDT Temperature - - Respiratory Rate 18 11/24/2021 9:47 AM EDT Oxygen Saturation 98% 11/24/2021 9:47 AM EDT Inhaled Oxygen Concentration - - Weight 97.1 kg (214 lb) 11/24/2021 9:47 AM EDT Height - - Body Mass Index - - Plan of Treatment Health Maintenance Due Date Last Done Comments Polio vaccine (2 of 3 - 4-do se series) 1995 1995 Depression Screen 2007 Varicella vaccine (1 of 2 - 13+ 2-dose series) 02/27/2008 HIV screen 2010 Hepatitis C screen 2013 Hepatitis B vaccine (1 of 3 - 19+ 3-dose series) 2014 Pap smear 02/27/2016 COVID-19 Vaccine (2023-2 5 season) 2023 Flu vaccine (Season Ended) 2024 DTaP/Tdap/Td vaccine (2 - Td or Tdap) 08/12/2030 08/12/2020 Hib vaccine Aged Out 1995, 1995 No longer eligible based on patient's age to complete this topic HPV vaccine Aged Out No longer eligi ble based on patient's age to complete this topic Hepatitis A vaccine Aged Out No longe r eligible based on patient's age to complete this topic Meningococcal (ACWY) vaccine Aged Out No longer eligible based on patient's age to complete this topic Meningococcal B vaccine Aged Out No l onger eligible based on patient's age to complete this topic Pneumococcal 0-49 years Vaccine Aged Out No longer eligible b ased on patient's age to complete this topic [facility]
--- OUTSIDE RECORDS SUMMARY | 2024-09-27 15:47 | XMS_ITS | Encounter Summary ---
Author Organization [facility] Address [facility] [id number] [address] [place] [address] Care Team Providers Care Canvas Repairer Name Role Phone Tl, Annette DYE RANGE FEEDER-DRAWER IN [employer] Primary Care Provider + Reason for Visit * Reason Onset Date Comments Medication Problem 09/14/2024 Encounter Details Date Type Department Care Team (Late st Contact Info) Description 09/14/2024 Nurse Triage [facility] [address] [place] [phone] Soy Ryan, FORREST Social History Tobacco Use Types Packs/Day Years Used Date Smoking Tobacco: Former Cigarettes 0.3 9.1 2 016 - 06/05/2024 Smokeless Tobacco: Never Alcohol Use Standard Drinks/Week Comments Yes 2 (1 standard drink = 0.6 oz pur e alcohol) [facility] Utilities Answer Date Recorded In the past 12 months has [employer], gas, oil, or water [employer] threatened to shut off services in your [...] encounter Miscellaneous Notes * Telephone Encounter - Soy Ryan RN - 09/14/2024 11:26 AM EDT ----- Message from Edwige sent at 09/14/2024 11:24 AM EDT ----- Contract: JAN Harrington had a PFO Closure done on 09/06/24 now she has a cold with nasal drainage with sore throat and her chest kind of hurts. She wants to know what she can take over the counter or does she need some other type of medication * Telephone Encounter - Soy Ryan RN - 09/14/2024 11:26 AM EDT Pt reports she had a PFO closure on 09/06/24, and a stroke 06/18. Now reports having URI symptoms, had bronchitis last week, and was treated was Zpack. Was better for 1 day, saw her PCP in office who was ill, now feels sick again. Has cough and nasal congestion, with post nasal drip. No fever. Wants to know what she can take for symptoms due to medical history. Secure chat sent to Julio Cesar Sousa BOX TRUCK DRIVER, no contraindications for OTC cold meds. ok to take sudafed OTC for symptoms. Call returned to pt, advised ok to take Sudafed. Pt states she cannot take sudafed, it makes her dizzy. Has taken Tylenol sinus with good relief. Ok to take that. Reason for Disposition ??? Prescription request for new medicine (not a refill) Protocols used: Medication Question Call-A-AH * Telephone Encounter - Shireen Garcia RN - 09/14/2024 11:26 AM EDT Reviewed, nothing further at this time documented in this encounter Plan of Treatment Upcoming Encounters Date Type Department Care Team (Late st Contact Info) Description 10/03/2024 10:00 AM EDT Office Visit [facility] [address] [place] [address] Eduar Cuenca MD [address] [place], [place] [phone] 12/06/2024 11:30 AM EDT Telemedicine [facility] [address] [place] [phone] Tong Daniel MD [address] [place], [place] [phone] documented as of this encounter Goals Goal [...] documented as of this encounter Care Teams Canvas Repairer Relationship Specialty Start Date End Date Annette Boothe, DYE RANGE FEEDER-DRAWER IN [employer] [address] [place] [address] PCP - General Family Medicine 06/09/24 documented as of this encounter
--- OUTSIDE RECORDS SUMMARY | 2024-09-27 15:47 | XMS_ITS | Clinical Summary ---
Author Organization [facility] Address [address] [place] [address] Care Team Providers Care Marine Animal Trainer Name Role Phone Unallocated, Noms Provider MD Primary Care Provi ildefonso Allergies Active Allergy Reactions Criticality Noted Date Comments Morphine Anaphylaxis High 12/20/2022 Penicillin G Sodium 12/20/2022 Severe swelling, brown urine No trouble breathing per pt Wound Dressing Adhesive 06/02/2022 Other Reaction(s): Rash Medications albuterol HFA 90 mcg/act inhaler Inhale 2 puffs every 6 (six) hours if needed. 01/23/2022 Active ibuprofen 600 MG tablet Take 600 mg by mouth every 6 (six) hours if needed for mild pain or moderate pain 10/10/2023 Active triamcinolone (Kenalog) 0.1 % ointmentIndicat ions:Vulvar irritation APPLY THIN FILM TWICE A DAY UNTIL SYMTOMS RESOLVE, THEN WEEN TO ONCE A DAY FOR SEVERAL DAYS, THEN EVERY OTHER DAY, THEN STOP 30 g 12/16/2023 Active spironolactone (Aldactone) 50 MG tablet Take 150 mg by mouth Daily 11/03/2023 Active norethindrone-e thinyl estradiol (Loestrin Fe 05/13) 1-20 MG-MCG tabletIndicatio ns:Nexplanon removal Take 1 tablet by mouth Daily 90 tablet 3 2024 02/26/20 25 Active Family History Medical History Relation Name Comments No Known Problems Daughter Dementia Mother Fibromyalgia Mother low blood pressure Mother Bipolar disorder Mother's Sister Endometriosis Mother's Sister Schizophrenia Mother's Sister Diabetes Paternal Grandmother No Known Problems Sister Relation Name Status Comments Daughter x2 Father Mother Alive Mother's Sister Paternal Grandmother Sister Social History Tobacco Use Types Packs/Day Years Used Date Smoking Tobacco: Never Smokeless Tobacco: Never Tobacco Cessation:Counseling Given: Not Answered Comments:Quit 2 years ago per patient Alcohol Use Standard Drinks/Week Comments Not Currently 0 (1 standard drink = 0.6 oz pure alcohol) caffeine intake: 1-2 cups per day AUDIT-C Answer Date Recorded Q1: How often do you have a drink containing alcohol? Never 12/20/2022 Q2: How many drinks containi ng alcohol do you have on a typical day when you are drinking? Patient does not drink Q3: How often do you have si x or more drinks on one occasion? Never 12/20/2022 PHQ-2 Answer Date Recorded Patient Health Questionnaire-2 Score 0 01/12/2024 Education Answer Date Recorded What is the highest level of school you have completed or the highest degree you have received? 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 Not on file Not on file Not on file Last Filed Vital Signs Vital Sign Reading Time Taken Comments Blood Pressure 90/64 04/18/2024 1:45 PM EST Pulse 78 04/18/2024 1:45 PM EST Temperature 36.7 C (98 F) 04/18/2024 1:45 PM EST Respiratory Rate - - Oxygen Saturation 99% 04/18/2024 1:45 PM EST Inhaled Oxygen Concentration - - Weight 90.7 kg (200 lb) 04/18/2024 1:45 PM EST Height 157.5 cm (5' 2 ) 12/22/2022 10:37 AM EDT Body Mass Index 36.58 12/22/2022 10:37 AM EDT Plan of Treatment Upcoming Encounters Date Type Department Care Team (Late st Contact Info) Description 01/03/2025 11:00 AM EDT Office Visit [facility] [address] [place] [address] Johnny Okeefe, DO [address] [place] [address] Health Maintenance Due Date Last Done Comments Influenza Vaccine (Season Ended) 2024 Insurance [employer] Care Teams Marine Animal Trainer Relationship Specialty Start Date End Date Unallocated, Noms Provider, [address] [place], [place] [phone] PCP - General Family Medicine 10/13/23
--- OUTSIDE RECORDS SUMMARY | 2024-09-27 15:47 | XMS_ITS | Encounter Summary ---
Author Organization [employer] Address [facility] [id number] [address] [place] [address] Care Team Providers Care Barrel Stave Inspector Name Role Phone Annette Boothe CREDIT CARD CONTROL CLERK-ROLL CONTOUR GRINDER Primary Care Provider + Encounter Details Date Type Department Care Team (Late st Contact Info) Description 06/09/2024 Orders Only [facility] [address] [place] [phone] Transcribe, Orders Support User Pain (Primary Dx) Social History Tobacco Use Types Packs/Day Years Used Date Smoking Tobacco: Former Cigarettes Alcohol Use Standard Drinks/Week Comments Not Currently 0 (1 standard drink = 0.6 oz pur e alcohol) rare [facility] Utilities Answer Date Recorded In the past 12 months has e [employer], gas, oil, or water [employer] threatened to shut off services in your [...] to get more. Never True 06/10/2024 Comments Unknown Sex and Gender Information Value Date Recorded Sex Assigned at Not on file Legal Sex Female 9:38 AM EST Gender Identity Not on file Sexual Orientation Not on file documented as of this encounter Functional Status * Question Answer Date of Assessment Author Functional Status Independent 06/10/2024 3:50 PM Clemente Chaves RN * Audit-C Score Answer Date of Assessment Author 1 06/09/2024 3:50 PM Anaid Villalta RN * Intimate Partner Violence Question Answer Date of Assessment Author Within the last year, have y ou been humiliated or emotionally abused in other ways by your partner or ex-partner? No 06/09/2024 3:50 PM Tenzin Villalta RN Within the last year, have y ou been afraid of your partner or ex-partner? No 06/09/2024 3:50 PM Lia Villalta RN Within the last year, have y ou been raped or forced to have any kind of sexual activity by your partner or ex-partner? No 06/09/2024 3:50 PM Tenzin Villalta RN Within the last year, have y ou been kicked, hit, slapped, or otherwise physically hurt by your partner or ex-partner? No 06/09/2024 3:50 PM Tenzin Villalta RN * Question Answer Date of Assessment Author Q1: How often do you have a drink containing alcohol? Monthly or less 06/09/2024 3:50 PM Lia Villalta RN Q2: How many drinks containing alcohol do you have on a typical day when you are drinking? 1 or 2 06/09/2024 3:50 PM EST Tenzin Ontiveros, RN Q3: How often do you have six or more drinks on one occasion? Never 06/09/2024 3:50 PM Lia Villalta, RN documented as of this encounter Mental Status * Question Answer Entry Date Author Overall Cognitive Status X 06/12/2024 2:30 PM EST Przynosch, Lyndsay, OTR/L * Question Answer Entry Date Author Overall Cognitive Status X 06/10/2024 11:00 AM EST Roya Cope, CHAZ-DOUGHMAKER documented in this encounter Plan of Treatment Upcoming Encounters Date Type Department Care Team (Late st Contact Info) Description 10/03/2024 10:00 AM EDT Office Visit [facility] [address] [place] [phone] Eduar Cuenca MD [address] [place] [address] 12/06/2024 11:30 AM EDT Telemedicine [facility] [address] [place] [address] Tong Daniel MD [address] [place] [address] documented as of this encounter Results * CT angiogram carotid (06/09/2024 8:55 AM EST) us Scanning Provider External IMG CT ORDERABLES Fin al Result * CT angiogram head (06/09/2024 8:50 AM EST) us Scanning Provider External IMG CT ORDERABLES Fin al Result * CT brain without contrast (06/09/2024 8:15 AM EST) us Scanning Provider External IMG CT ORDERABLES Fin al Result documented in this encounter Visit Diagnoses Diagnosis Pain- Primary Generalized pain documented in this encounter Additional Health Concerns Infection Onset Date Last Indicated Resolved Time Respiratory Rule-Out 06/10/2024 06/10/2024 025 12:40 PM EST Assessment Noted Time PHQ-9 Depression Total Score: 0 06/09/19 3:50 PM EST documented as of this encounter Care Teams Barrel Stave Inspector Relationship Specialty Start Date End Date Annette Boothe APRN-JERRY [address] [place] [address] PCP - General Family Medicine 06/09/24 documented as of this encounter
[2024-10-03 11:13] LABS: Ova + Parasite Exam Final report (.)
== END 2024-09-27 15:46 | disposition home or self-care (01) ==
LOC: LAB 15:45
PROVIDERS: PCP Nurse Practitioner Family; Visit Provider Nurse Practitioner
DX: R19.5 Other fecal abnormalities (principal)
CPT/HCPCS: 87177; 87209